=== PATIENT | male | born 1945 | race Caucasian/White ===

== ENCOUNTER 2019-12-12 10:51 | Outpatient (CLI) | payer OTHER, MEDICARE, SELFPAY ==
--- NOTE | 2019-12-12 11:00 | USCV_ITS ---
Jaquan Alba Age: 74 Gender: M : 1945 Exam Date: 12/12/2019 11:19 Ordering Phys: Hermilo Montenegro DO Technologist: Katie Caballero Exam Location: [facility] [place] Indication: Pt has lower leg pain Risk Factors: DM and 68 year 1 pack a day smoker. Active smoker Previous Vascular Surgery: Pt unsure RIGHT LEFT BP: 152.0 / BP: 150.0/ 0 0 Waveform Velocity (cm/s) Velocity (cm/s) Waveform Triphasic 117.0 Iliac Prox 84.6 Triphasic Triphasic 88.1 Iliac Mid 83.7 Triphasic Triphasic 82.8 Iliac Distal 74.3 Triphasic Triphasic 89.4 PLYWOOD LAYUP LINE CORE FEEDER 76.5 Triphasic Triphasic 65.7 SFA Prox 72.6 Biphasic Triphasic SFA Mid Biphasic 70.1 54.7 Triphasic 72.6 SFA Dist 76.5 Biphasic Triphasic 59.0 POP 82.9 Triphasic Triphasic 76.0 OVAL OR CIRCULAR GLASS CUTTER 90.6 Biphasic Triphasic DPA 27.3 Biphasic 1.2 EARLINE 1.1 FINDINGS TOE PRESSURE RT TBI .89 LT TBI .91 Normal resting EARLINE and TBIs bilaterally. CONCLUSIONS No significant arterial obstruction, based on the above findings Dr Steven Handley MD [facility] (Electronically Signed) Final Date: 13 December 2019 08:28 S
== END 2019-12-12 10:52 | disposition home or self-care (01) ==
LOC: RAD 11:01
PROVIDERS: Visit Provider Emergency Medicine Emergency Medical Services
DX: M79.604 Pain in right leg (principal); M79.605 Pain in left leg
CPT/HCPCS: 93925

== ENCOUNTER 2020-01-08 16:06 | Outpatient (CLI) | payer OTHER, MEDICARE, SELFPAY ==
--- NOTE | 2020-01-08 16:13 | MR_ITS ---
WS: [id number] EXAM: MR lumbar spine wo con* [id number] DATE OF EXAMINATION: 01/08/2020, 1648 hours COMPARISON: CT of the abdomen and pelvis from 04/09/2009. HISTORY: 74 years old with low back pain with right leg radiculopathy. TECHNIQUE: Sagittal T1, T2 and T2 inversion recovery: Axial proton density and T2 FINDINGS: Lower thoracic and lumbar vertebrae as well as upper 6 segments are of normal height and marrow signa l characteristics. Cord ends at the L1-2 level. Distal cord is normal in appearance. T10-11, T11-T12 and T12-L1 disc levels show minimal anterior spurring. No findings of protrusion, can al or neural foraminal stenosis. L1-2: Slight anterior spurring otherwise fairly normal discs level. L2-3: Moderate desiccation of the disc. Disc bulges into both neural foramen. Posterior facet arthrop athy changes are demonstrated without protrusion, canal or neural foraminal stenosis L3-4: Posterior facet arthropathy changes. Minimal anterolisthesis of L3 on L4. Disc is desiccated. S light disc bulging in both neural foramen. There are posterior findings a ligament of flavum thickeni ng. Central canal is considered borderline for stenosis. Both neural foramen are narrowed. Borderline for stenosis right greater than left. L4-5: Disc is desiccated. Slight disc bulge into both neural foramina. Posterior facet arthropathy ch anges demonstrated. The neural foramen are considered mildly stenosed bilaterally. No central canal s tenosis. There appears to be a tiny left lateral recess disc herniation at this level. L5-S1: S1 is considered transitional. The disc is desiccated. Slight anterior spurring. Minimal facet arthropathy changes. No protrusion, canal or neural foraminal stenosis. On inversion recovery sequencing no abnormal inflammatory changes are identified. Paraspinal soft tissues are unremarkable. MR/MR lumbar spine wo con* [id number] IMPRESSION: Multilevel osteoarthritis changes as described. Central canal is borderline for stenosis L3-4 level. Bilateral L4-5 neural foraminal stenosis. Borderline L3-4 bilateral neural foraminal stenosis. Minute in size left lateral recess disc herniation L4-5 level.
== END 2020-01-08 16:07 | disposition home or self-care (01) ==
LOC: RADSHAW 16:06
PROVIDERS: PCP Emergency Medicine Emergency Medical Services; Visit Provider Emergency Medicine Emergency Medical Services
DX: M51.26 Other intervertebral disc displacement, lumbar region (principal); M54.16 Radiculopathy, lumbar region; M48.061 Spinal stenosis, lumbar region without neurogenic claudication
CPT/HCPCS: 72148

== ENCOUNTER 2020-04-09 08:16 | Outpatient (CLI) | payer OTHER, SELFPAY ==
--- NOTE | 2020-04-09 08:24 | USCV_ITS ---
Jaquan Alba Age: 74 Gender: M : 1945 Exam Date: 04/09/2020 08:37 Ordering Phys: Hermilo Montenegro DO Technologist: Katie Caballero Exam Location: [facility] [place] Indication: Screening for AAA HISTORY: Diameter (cm) AP x Transverse x Length Velocity (cm/s) Waveform Prox Aorta: 1.99 x 2.10 x 92.90 Mid Aorta: 2.03 x 2.03 x 74.10 Distal Aorta: 1.99 x 1.89 x 79.30 Right Iliac Prox: 1.42 x 1.31 x 126.40 Left Iliac Prox: 1.42 x 1.13 x 70.20 Stent Prox Landing x x Aneurysmal Sac Max x x Lt Lat Sac Dim Rt Lat Sac Dim Stent Dist Landing x x Right Iliac Stent x x Left Iliac Stent x x Right Renal Art Left Renal Art FINDINGS: Normal aortic dimensions. Normal Doppler flow velocities Mild dimensions of the proximal common iliac arteries bilaterally Mild diffuse plaques in the abdominal aorta CONCLUSIONS No evidence of any abdominal aortic aneurysm Mild diffuse plaque in the abdominal aorta No evidence of aneurysm in the proximal common iliac arteries bilaterally Dr Steven Handley MD [facility] (Electronically Signed) Final Date: 10 April 2020 18:26 S
== END 2020-04-09 08:17 | disposition home or self-care (01) ==
LOC: US 08:17
PROVIDERS: PCP Emergency Medicine Emergency Medical Services; Visit Provider Emergency Medicine Emergency Medical Services
DX: M79.604 Pain in right leg (principal); M79.605 Pain in left leg
CPT/HCPCS: 76706

== ENCOUNTER 2020-04-10 08:40 | Outpatient (CLI) | payer OTHER, SELFPAY ==
--- NOTE | 2020-04-10 08:47 | CT_ITS ---
WS: [id number] CT scan of the of the abdominal aorta and its branches,. Additional two-dimensional coronal and sagit peter reconstruction was performed. MIP images were also performed. 04/10/2020 Clinical Data: LOWER EXTREMITY SWELLING, HISTORY OF THROMBOSIS Comparison: CTA abdomen pelvis, 04/09/2009. DLP: 1042.[address] scans at [facility] use at least one of these dose optimization techniques: automat ed exposure control; mA and/or kV adjustment per patient size (includes targeted exams where dose is matched to clinical indication); or iterative reconstruction. Findings: Vascular findings: The abdominal aorta is normal in size with no aneurysm. There is atherosclerotic change with minimal mural thrombosis. The renal arteries, celiac artery, SMA and LISA show no abnormalities. The common il iac arteries are patent and they divide into the internal and external iliac arteries. The external i liac arteries become the common femoral arteries. There is minimal calcification of the common iliac arteries and their distal branches. There are no occlusions, stenoses or aneurysms. Abdominal and pelvic findings: The lower lungs show no nodules, metatarsals or effusions. There are low density areas in the anterio r aspect of the liver which are probably cysts and they have not changed. The spleen, gallbladder, pa ncreas and adrenal glands are unremarkable. The kidneys show equal bilateral contrast excretion with bilateral cysts. No masses, hydronephrosis or renal calculi are seen. The stomach, small bowel and co primitivo show no acute abnormalities. No appendicitis or diverticulitis is seen. There are sigmoid diverti cula. No abscess, adenopathy, ascites, mass, obstruction or free air is seen. The bladder is not caridad rkable. The prostate is minimally enlarged. There is osteoarthritis of the lumbar vertebral bodies. CT/CT angio abdomen pelvis [id number] Impression: 1. Normal abdominal aorta. 2. Minimal atherosclerosis of the common iliac arteries and their distal branch es but there are no occlusions or stenoses. 3. Negative for acute intra-abdominal or pelvic abnormalities.
[2020-04-10 10:00] LABS: Blood Urea Nitrogen 12 mg/dL (8-23)
[2020-04-10] MEDS: iohexol 350 mg/mL 100 mL Btl IV (10:13)
== END 2020-04-10 08:41 | disposition home or self-care (01) ==
LOC: RADWPI 08:44
PROVIDERS: PCP Emergency Medicine Emergency Medical Services; Visit Provider Emergency Medicine Emergency Medical Services
DX: M79.89 Other specified soft tissue disorders (principal); I70.8 Atherosclerosis of other arteries
CPT/HCPCS: 74174; 82565; 84520; Q9967

== ENCOUNTER 2020-06-24 18:44 | Emergency (ER) | payer OTHER, MEDICARE, SELFPAY ==
[2020-06-24 19:38] VITALS: BP 153/79; PULSE 67; RESP 16; TEMP 36.7; O2SAT 96; BMI 39.4
--- NOTE | 2020-06-24 20:05 | XR_ITS ---
WS: [id number] Right knee, AP and lateral views, 06/24/2020 Clinical Data: knee pain s/p fall Comparison: None. Findings: No fractures or dislocations are seen. The patella is intact. There is osteoarthritic narrowing of the medial joint compartment with spurring of the medial and lat eral femoral condyles and the medial tibial plateau. There is posterior patellar spurring. Minimal ca lcification is seen in the reece of the superficial femoral artery. There is linear calcification in the medial subcutaneous tissue of the distal thigh and proximal leg which may be venous. XR/XR knee RT 3V* [id number] Impression: Negative for fracture of the right knee.
--- NOTE | 2020-06-24 20:05 | XR_ITS ---
WS: [id number] Right hip, AP and frog-leg views, AP pelvis, 06/24/2020 Clinical Data: hip pain s/p fall Comparison: None. Findings: No fractures or dislocations are seen. The hip joints are intact. There is calcification adjacent to the greater tuberosity of the right hip which may be from bursitis or tendinitis. The adjacent pelvis is normal. The SI joints and pubic symphysis are normal. . XR/XR hip RT 2-3V wo/w pel* [id number] Impression: Negative for fracture of the pelvis and right hip.
--- NOTE | 2020-06-24 20:05 | W.ED.EXTPRO ---
HPI - Extremity Problem General: Chief complaint: Extremity Injury, Lower Stated complaint: fell/right leg injury Time Seen by Provider: 06/24/20 19:56 Source: patient and family Mode of arrival: ambulatory Limitations: no limitations History of Present Illness: HPI Narrative: 74-year-old male patient presents to the emergency department with complaints of right hip and right knee pain after sustaining fall, Monday, June 22, 2020. He reports continued right hip and right knee pain despite use of walker and pain medication. He reports unable to straighten his body without reproducing hip pain. He reports fell due to wet floor. MD Complaint: extremity pain and joint pain Onset (ago): day(s) (2-3) Pain Consistency: intermittent Location: right and lower extremity Relieving factors: immobilization and rest Exacerbating factors: range of motion, weight bearing and walking Associated symptoms: Reports no associated symptoms; Deny chest pain, fever(s) or rash Review of Systems General: Reports: 10 or more systems reviewed and unremarkable except in HPI and below Const: Reports: fatigue (chronic); Denies: fever(s), chills, body aches or diaphoresis Eyes: Denies: blurry vision or eye redness ENMT: Denies: throat pain, dental pain or disequilibrium Card: Denies: chest pain, palpitations, irregular heart rhythm or swelling of feet/ankles Resp: Denies: dyspnea, productive cough, non-productive cough or wheezing GI: Denies: abdominal pain, nausea, vomiting, dysphagia or heartburn : Denies: dysuria Musc: Reports: joint pain and joint stiffness; Denies: neck pain or back pain Skin/Breast: Denies: rash or pruritus Neuro: Denies: headache(s), weakness in extremities or behavioral changes Psych: Denies: anxiety, depression, sleeping more or change in appetite Oracio/Lymph: Denies: easy bruising PFS ED PFSH: Medical History COPD (chronic obstructive pulmonary disease) Diabetes 1.5, managed as type 1 Essential (primary) hypertension GERD (gastroesophageal reflux disease) Hyperlipemia Physical Exam Const: COMMON NORMALS: no acute distress, patient oriented x3, healthy appearing and alert GENERAL APPEARANCE: cooperative, comfortable and well hydrated HENMT: COMMON NORMALS: normocephalic, Normal external nose present and moist oral mucous membranes HEAD & SCALP: normocephalic NOSE: Normal external nose present Eye: COMMON NORMALS: Equal, round and reactive pupils present and EOMs intact bilaterally GENERAL EYE: appearance normal, both eyes and all related structures PUPIL: Yes Equal, round and reactive pupils present Neck/C-Spine: COMMON NORMALS: full ROM, no lymphadenopathy and supple GENERAL: Yes normal visual inspection and Yes trachea midline CERVICAL SPINE: Yes cervical ROM normal, No pain with cervical ROM, No Cervical spine tenderness, No Paracervical muscle tenderness and No Paracervical spasm Lymph: LYMPHATIC: no lymphadenopathy noted Chest: COMMONS NORMALS: normal inspection of the chest Resp: COMMON NORMALS: normal respiratory effort and clear to auscultation bilaterally AUSCULTATION: clear to auscultation bilaterally Cardio: COMMON NORMALS: regular rhythm, S1 normal heart sound present and S2 normal heart sound present RHYTHM: regular rhythm HEART SOUNDS: S1 normal heart sound present and S2 normal heart sound present GI: COMMON NORMALS: Soft to palpation and non-tender INSPECTION: Yes normal to inspection PALPATION: Yes Soft to palpation : COMMON NORMALS: Yes no CVA tenderness BLADDER/KIDNEY EXAM: Yes no CVA tenderness Back/Pelvis: COMMON NORMALS: no CVA tenderness, thoracic and lumbar spine normal to inspection, no thoracic nor lumbar tenderness and thoraco-lumbar ROM normal THORACIC SPINE/UPPER BACK: No pain with ROM LUMBAR SPINE/LOWER BACK: No pain with ROM Extremity: COMMON NORMALS: normal to inspection, capillary refill normal, no clubbing, cyanosis or edema and no calf tenderness GENERAL: Yes normal exam except as noted RIGHT LOWER EXTREMITY: Yes hip joint (No pain with hip flexed 90 degrees, sitting position) Right hip: Yes palpation (Not able to reproduce tenderness with palpation), Yes ROM (Limited extension/knee flexion due to pain reproduced) and Yes neurovascular exam (Distally intact) and Yes knee joint (anterior knee tenderness along the patellar joint,) Right knee: Yes ROM (Pain with complete extension and flexion at 90 degrees) and Yes neurovascular exam (Distally intact) Neuro: COMMON NORMALS: patient oriented x3 and no focal motor deficits SENSORIUM/ORIENTATION: Yes alert Psych: COMMON NORMALS: mental status grossly normal, Normal thought process present and cooperative ACTIVITY/MOTOR BEHAVIOR: Yes appropriate eye contact THOUGHT PROCESS: Normal thought process present Skin: COMMON NORMALS: no rashes or lesions noted and turgor normal GENERAL SKIN EXAM: no rashes or lesions noted and turgor normal Course Vital Signs: Vital signs: Vital Signs Temperature 98.1 F 06/24/20 19:38 Pulse Rate 67 06/24/20 19:38 Respiratory Rate 16 06/24/20 19:38 Blood Pressure 153/79 06/24/20 19:38 Pulse Oximetry 96 06/24/20 19:38 MDM - Extremity (Nontraumatic) Imaging Data^: Xray Ortho: My impression: No acute fracture of the right hip/pelvis noted, radiology interpretation pending No acute fracture of the right knee, radiology interpretation pending Discharge Plan Discharge Patient Disposition: Home Clinical Impression: Contusion of knee Qualifiers: Encounter type: initial encounter Laterality: right Qualified Code(s): S80.01XA - Contusion of right knee, initial encounter Strain of right knee Qualifiers: Encounter type: initial encounter Qualified Code(s): S86.911A - Strain of unspecified muscle(s) and tendon(s) at lower leg level, right leg, initial encounter Strain of right hip Qualifiers: Encounter type: initial encounter Qualified Code(s): S76.011A - Strain of muscle, fascia and tendon of right hip, initial encounter Fall Qualifiers: Encounter type: initial encounter Qualified Code(s): W19.XXXA - Unspecified fall, initial encounter Condition: Stable Prescriptions: No Action colchicine 0.6 mg capsule 0.6 mg PO DAILY RF: 0 aspirin [Enteric Coated Aspirin] 81 mg tablet,delayed release (DR/EC) 81 mg PO DAILY RF: 0 (DME) lancets [Accu-Chek Softclix Lancets] Misc See Rx Instructions .ROUTE .MEDSUPPLY Qty: 50 RF: 0 Discharge Orders: Discharge ED (Routine); Ordered 06/24/20 Ordered By: Reta Davenport Referrals: Hermilo Montenegro DO [Primary Care Provider] - Discharge Diet: Usual diet Discharge Activity: Limit activity as instructed Patient Instructions: Muscle Strain (ED), Contusion in Adults (ED), Knee Pain (ED), Opioid Safety Activity Restrictions/Additional Instructions: Return to the emergency department if you develop increased pain or redness/swelling to the right lower extremity Follow-up with your primary care in 4 to 5 days if pain is not improved Continue with walker use to assist with ambulation Coding Level of Care Code ED Water Treatment Specialist for Chg Fwd Exam Comprehensive
[2020-06-24 21:42] VITALS: BP 138/84; PULSE 56; RESP 14; O2SAT 95
== END 2020-06-24 21:42 | disposition home or self-care (01) ==
PROVIDERS: Emergency Provider Nurse Practitioner Family; PCP Emergency Medicine Emergency Medical Services
DX: J44.9 Chronic obstructive pulmonary disease, unspecified (principal); E13.9 Other specified diabetes mellitus without complications; I10 Essential (primary) hypertension; E78.5 Hyperlipidemia, unspecified
CPT/HCPCS: 73502; 73562; 99282

== ENCOUNTER → 2020-08-06 12:29 | Outpatient (BNVA) | payer OTHER, SELFPAY | PROVIDERS: PCP Emergency Medicine Emergency Medical Services; Visit Provider Psychiatry & Neurology Neurology | DX: M79.604 Pain in right leg (principal); G60.8 Other hereditary and idiopathic neuropathies | CPT/HCPCS: 95886; 95908 ==

== ENCOUNTER 2020-10-09 07:01 | Outpatient (CLI) | payer OTHER, SELFPAY ==
[2020-10-09 07:47] VITALS: BMI 39.4
--- NOTE | 2020-10-09 07:48 | NMCV_ITS ---
NM adrianna perf SPECT r/s* [id number] Jaquan Alba Age: 75 Gender: M : 1945 Exam Date: 10/09/2020 08:09 Ordering Phys: Sathish Ames M.D ([email or web address]) Technologist: PAYTON Lawton Exam Location: [facility] Indications: SHORTNESS OF BREATH STRESS TEST Please see separate stress test report in [facility] for full findings IMAGE PROTOCOL Rest/Stress 1 Lexiscan Day Radiopharmaceutical Dose (mCi) Administration Site Administered by Rest: Tc-99m 10.9 IV PAYTON Lynne Sestamibi Stress:Tc-99m 33.0 IV PAYTON Lynne Sestamibi Rest: 09-Oct-2020 60 Discovery 630 Stress: 09-Oct-2020 30 Discovery 630 0.4mg Lexiscan. Images obtained in supine and prone position. SPECT RESULTS Technical Quality: Excellent Raw Data Analysis: Normal Image Corrections: No attenuation or motion correction applied Summed Stress Score: 10 Summed Rest Score: 12 Summed Difference Score: 2 PERFUSION FINDINGS There is a large sized, fixed perfusion defect in the apical lateral, apical inferior and mid to basal inferior reece. This is consistent with prior infarct. No ischemia is seen FUNCTIONAL RESULTS (calculated via Gated SPECT) Stress Image LV EF (%): 62 Stress EDV (mL):132 TID: 0.92 Stress ESV (mL):50 FUNCTIONAL FINDINGS: There is normal left ventricular systolic function. IMPRESSIONS 1. Abnormal perfusion imaging with infarct noted in the apical lateral, apical inferior and mid to basal inferior reece. No evidence of ischemia 2. LV systolic function is normal Sathish Ames MD (Electronically Signed) Final Date: 09 October 2020 16:43 S
--- NOTE | 2020-10-09 07:48 | ECG_ITS ---
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 Interpretive Statements NAME OF STUDY: LEXISCAN SESTAMIBI STRESS TEST INDICATION: [Chest Pain, ] Procedure: At the baseline, the blood pressure was 124/63mmHg with a heart rate of 61 bpm. The electrocardiogram showed normal sinus rhythm, normal axis with normal ST and T's. The Lexiscan was infused over a period of 20 seconds. A total of 0.4 mg of Lexiscan was infused. The stress phase was continued for a total of 5 minutes. Heart rate was at the end of stress phase was 52 bpm and a blood pressure of 127/60 mmHg. The EKG at the peak infusion revealed since normal sinus rhythm with no significant ST-T wave changes. Occasional PVCs were seen Sestamibi was injected 20 seconds after the Lexiscan infusion. Blood pressure at the end of recovery phase was 105/58 mmHg with a heart rate of 60 bpm. Conclusion: 1. Normal EKG response to Lexiscan infusion 2. No Lexiscan induced chest pain or cardiac arrhythmia. 3. Normal blood pressure and heart rate response. 4. Sestamibi/sestamibi perfusion scan pending; see separate report. Electronically Signed On 11-18-2020 15:10:12 CDT by Sathish Ames M.D. [id number]
[2020-10-09 08:57] VITALS: BP 129/55; PULSE 53
[2020-10-09] MEDS: regadenoson 0.4 Mg/5 ml Syringe IVP (08:57)
--- NOTE | 2020-10-09 10:15 | USCV_ITS ---
Jaquan Alba Age: 75 Gender: M : 1945 Exam Date: 10/09/2020 07:32 Ordering Phys: Sathish Ames M.D ([email or web address]) Technologist: Katie Caballero [place] [facility] [place]: MEDICAL CLEARANCE BP: / HR: 63 Rhythm: Sinus Technical Quality: TDS MEASUREMENTS (Male / Female) Normal Values 2D ECHO LV Diastolic Diameter PLAX 4.0 cm 4.2 - 5.9 / 3.9 - 5.3 cm LV Systolic Diameter PLAX 2.2 cm LV Chamber Size 2.6 cm IVS Diastolic Thickness 2.1 cm 0.6 - 1.0 / 0.6 - 0.9 cm IVS Systolic Thickness 2.2 cm LVPW Diastolic Thickness 1.9 cm 0.6 - 1.0 / 0.6 - 0.9 cm LVPW Systolic Thickness 1.7 cm RV Chamber Size 3.6 cm LVOT Diameter 2.1 cm LV Ejection Fraction 2D Teich 81.1 % LV Ejection Fraction MOD 2C 48.5 % LV Ejection Fraction 2C AL 50.5 % LA Diameter 3.5 cm LA Width 2.9 cm LA Height 4.3 cm RA Width 3.8 cm RA Height 4.4 cm Aorta at Sinotubular Diameter 3.3 cm M-MODE LV Diastolic Diameter MM 4.0 cm 4.2 - 5.9 / 3.9 - 5.3 cm LV Systolic Diameter MM 2.8 cm LV Ejection Fraction MM Teich 55.0 % IVS Diastolic Thickness MM 1.4 cm 0.6 - 1.0 / 0.6 - 0.9 cm IVS Systolic Thickness MM 1.9 cm LVPW Diastolic Thickness MM 1.9 cm 0.6 - 1.0 / 0.6 - 0.9 cm LVPW Systolic Thickness MM 1.8 cm Aortic Annulus Diameter 3.4 cm LA Ao Ratio MM 1.1 MV E Point Septal Separation 0.9 cm DOPPLER AV Peak Velocity 105.0 cm/s LVOT Peak Velocity 59.0 cm/s AV Area Cont Eq vti 2.4 cm squared AV Area Cont Eq pk 1.9 cm squared MV Area PHT 2.4 cm squared Mitral E to A Ratio 0.7 MV E' Velocity 39.0 cm/s Mitral E to MV E' Ratio 7.1 Mitral E to LV E' Lateral Ratio 5.6 Mitral E to LV E' Septal Ratio 9.6 TR Peak Velocity 100.3 cm/s TR Peak Gradient 4.0 mmHg TR Mean Velocity 74.9 cm/s TR Mean Gradient 2.6 mmHg TR Velocity Time Integral 26.9 cm TV Peak E Velocity 44.0 cm/s Right Atrial Pressure 3.0 mmHg Pulmonary Artery Systolic Pressu 7.0 mmHg PV Peak Velocity 38.0 cm/s RV Acceleration Time 0.1 s RV Ejection Time 0.4 s RV AcT/ET 0.3 FINDINGS Left Ventricle Normal left ventricular size. LV systolic function is normal with EF of 50-55%. Regional wall motion abnormalities can not be assessed because of poor visualization. Right Ventricle The right ventricle is normal in size and function. Right Atrium The right atrium is normal in size. Left Atrium The left atrium is normal in size. Mitral Valve Grossly normal without significant stenosis or prolapse. There is no mitral regurgitation. Aortic Valve Grossly normal without significant sclerosis or stenosis. There is no aortic regurgitation. Tricuspid Valve Structurally normal tricuspid valve without significant stenosis or regurgitation. Insufficient TR jet to calculate RVSP Pulmonic Valve Not well visualized Pericardium Normal pericardium without effusion. Aorta Normal ascending aorta dimension. CONCLUSIONS Limited quality echocardiogram secondary to poor ultrasonic windows LV systolic function is normal with EF of 50-55% No gross valvular abnormalities No comparison studies are available Sathish Ames MD (Electronically Signed) Final Date: 10 October 2020 18:17 S
== END 2020-10-09 07:02 | disposition home or self-care (01) ==
LOC: CDL 07:04
PROVIDERS: PCP Emergency Medicine Emergency Medical Services; Visit Provider Internal Medicine
DX: I25.10 Atherosclerotic heart disease of native coronary artery without angina pectoris (principal); R07.9 Chest pain, unspecified; R06.02 Shortness of breath
CPT/HCPCS: 78452; 93017; 93306; A9500; J2785

== ENCOUNTER → 2020-10-17 08:58 | Outpatient (BNVA) | payer OTHER, SELFPAY | PROVIDERS: PCP Emergency Medicine Emergency Medical Services; Visit Provider Student in an Organized Health Care Education/Training Program | DX: Z01.812 Encounter for preprocedural laboratory examination (principal); Z20.822 Contact with and (suspected) exposure to COVID-19 | CPT/HCPCS: 87635 ==

== ENCOUNTER 2020-11-05 14:26 | Outpatient (CLI) | payer OTHER, SELFPAY ==
--- NOTE | 2020-11-05 19:31 | ONC CON_ITS ---
Dr. Tilley New Patient Note Patient: Jaquan Alba Unit #: [id number]: 1945 Dicatated By: Yasmany Tilley M.D.Date of Visit: Nov 05, 2020 Onc MED New Patient/Consult Referring Physician: Dr. WICHO ESPARZA M.D. Chief Complaint: Rectal cancer. History of Present Illness: This is a 75-year-old man with well differentiated adenocarcinoma of the rectum, by clinical evaluation stage I (T1, N0, M0). He has multiple medical illnesses including hypertension, hyperlipidemia, diabetes (reportedly type I), coronary artery disease, COPD, and peripheral neuropathy. He has had chronic debility and chronic pain in his right leg following a crush injury to his right leg sometime around 1997. [place] through the [place]. On a screening colonoscopy in March 2012 he was found to have a small adenomatous polyp in the ascending colon. It was removed endoscopically. A follow-up surveillance colonoscopy on 09/04/2020 showed a 4 mm sessile polyp at the ileocecal valve which was removed endoscopically. Also noted was a nonobstructing rectal mass measuring 3.0 x 3.0 cm extending from 5 to 8 cm from the anal verge. Biopsies of the rectal mass showed tubular adenoma with focal high-grade dysplasia. The ICV polyp showed tubular adenoma. CT of the abdomen/pelvis on 09/10/2020 showed no acute process. There was no retroperitoneal or pelvic adenopathy noted. His baseline CEA level was 3.5 ng/mL. He was referred to Dr. Shiraz Benavides in [place]. On 10/22/2020 he underwent transanal excision of the rectal mass and rigid proctoscopy. The mass was able to be completely excised. Pathology showed well differentiated adenocarcinoma with invasion of the submucosa (pT1). There was only sparse uninvolved muscularis propria in the submitted sample. The peripheral margins were at least 3 mm from the tumor. The deep margin was measured at 1 mm. He is seen now in regard to the rectal cancer. He has very limited activity which appears to be due predominantly to chronic debility associated with a previous crush injury to his right leg and to peripheral neuropathy. His ECOG score is 2. He has good appetite. He has no fever or night sweats. He has shortness of breath with activity and he has cough productive of clear sputum. He does not complain of chest pain. He has no GI complaints other than occasional heartburn. He had not been having any significant bowel symptoms, and he has not been aware of any blood in the stool. Bladder function remains adequate, though he does complain that his bladder does not empty completely. He has chronic pain in the right leg. He also complains that with weightbearing he gets a bulge in his right leg which holds fever in it . He has no other joint or bone pain. He does not complain of headache. He does complain that he does not have a sense of balance and he complains that his feet are . Past Medical History: Mr. Alba's medical history consists of chronic obstructive pulmonary disease, coronary artery disease, gastroesophageal reflux disease, gout, hyperlipidemia, hypertension, obstructive sleep apnea, peripheral neuropathy, and type 1 diabetes. Past Surgical History: His surgical/procedural history consists of appendectomy in 2008, coronary angioplasty/stent placement in 1997, and a previous rectal fissure repair. He suffered a crush injury to the right leg/foot in 1997. Medications: Aleve Tablet Oral b.i.d. PRN, Ana Cristina-Ridgeway Tablet, effervescent Oral PRN, Allopurinol (300 mg) Tablet Oral daily, amLODIPine Besylate (5 mg) Tablet Oral daily, Aspirin Low Dose Adult (81 mg) Tablet, chewable Oral daily, Cetirizine HCl (10 mg) Tablet Oral daily PRN, Cholecalciferol (50 mcg ) Tablet Oral daily, Colchicine (0.6 mg) Capsule Oral daily PRN, Gemfibrozil 2 (600 mg) Tablet Oral daily, hydroCHLOROthiazide (25 mg) Tablet Oral daily, Lisinopril (10 mg) Tablet Oral daily, Lyrica (150 mg) Capsule Oral t.i.d., ProAir HFA Aerosol, solution Inhalation PRN, Triamcinolone Acetonide Cream Topical PRN, Xlear Sinus Care [place] Solution Nasal b.i.d. PRN Allergies: Zocor Social History: Mr. Alba is . He has a history of smoking 1 pack of cigarettes daily for 60 years. He does not drink alcohol. He has had alcohol use in the past which at one point was moderate, but never heavy. Family History: Father with some type of lung disease. Mother of liver cancer . 1 brother also is , cause unknown to the patient. He has 2 sisters, one of whom has dementia. A son has been treated for non-Hodgkin's lymphoma. Review Of Symptoms: Constitutional - He has very limited activity, but he is up and around in a scooter. He has good appetite. He has no fever or night sweats. ECOG score is 2, Eyes - He has had some decline in vision, ENMT - He has hearing loss. No tinnitus. He has some allergy related sinus symptoms. No mouth sores. No sore throat or difficulty swallowing, Hematologic/Lymphatic - He has easy bruising, Respiratory - He has shortness of breath with activity. He has cough productive of clear sputum. No pleuritic pain or hemoptysis, Cardiovascular - No angina pain. No palpitations, Gastrointestinal - No nausea or vomiting. He occasionally has heartburn. No diarrhea or constipation. No blood in the stool or black stools, Genitourinary (M) - He complains that his bladder tends to not empty completely. No dysuria or hematuria. No urinary frequency. No urgency or incontinence, Musculoskeletal - He has chronic pain in his right leg and with weightbearing he tends to have a bulge in his right leg that has fever ended , Integumentary - No skin rash or other skin changes, Neurologic - No headache. He complains that he does not have a sense of balance, and he complains that his feet are , Psychiatric - No anxiety or depression. No insomnia. Vital Signs: Performed on Nov 05, 2020 16:41: 7, 0, 39.95 (HIGH), 2.40 sq.m, 70 in, 96 %, 69 /min, 18 /min, 148/85 mm(hg) (HIGH), 97.8 F (LOW), and 278.4 lbs (HIGH). Physical Examination: Constitutional - He appears generally weak and he has poor mobility, Eyes - Sclerae nonicteric. Conjunctivae clear, ENMT - No lesions noted in the oral cavity, Neck - No mass or thyromegaly, Hematologic/Lymphatic - No cervical, clavicular, or axillary adenopathy, Respiratory - Lungs are clear with diminished air movement bilaterally, Cardiovascular - Heart rhythm is regular. There is no murmur, gallop, or rub noted, Abdomen - Mildly distended. Liver and spleen are not enlarged. There is no abdominal mass or ascites noted and there is no inguinal adenopathy, Back/Spine - No spine or CVA tenderness noted, Extremities - There is slight edema. There is firm swelling of the right calf with the right calf circumference measuring 48 cm compared to 43 cm on the left. Pedal pulses are palpable bilaterally and both feet are warm to touch, Integumentary - No rashes. No suspicious skin lesions noted. Problem List: 1. Well differentiated adenocarcinoma of the rectum, by clinical evaluation stage I (pT1, N0, M0). 2. Hypertension. 3. Hyperlipidemia. 4. Diabetes, reportedly type I. 5. Coronary artery disease with previous angioplasty/stent placement. 6. COPD. 7. Peripheral neuropathy. 8. History of gout. 9. History of crush injury to the right leg. Problems Addressed with this Encounter and Plan: Patient with well differentiated adenocarcinoma of the rectum, by clinical evaluation stage I (pT1, N0, M0). The tumor was completely removed by transanal excision on 10/22/2020. Pathology showed invasion of the submucosa. The specimen included only sparse uninvolved muscularis propria. Peripheral margins were at least 3 mm. The deep margin was measured at 1 mm. With the tumor completely excised, there is no further treatment indicated, but he will require close surveillance, particularly with the close margins. We discussed the fact that the surveillance program as outlined by Dr. Benavides is very appropriate, though in his case it may be somewhat cumbersome given his underlying medical illnesses and poor mobility. The family also indicated that [facility] recommended that after his initial 3-month follow-up he could just be monitored by CEA level. I have no idea if that statement is accurate, but it would certainly not be sufficient for surveillance of rectal cancer treated by transanal excision. In summary, he does not require any further treatment at this time, and he does not need to follow-up here as long as he continues his surveillance with Dr. Benavides. Signed By: Yasmany Tilley M.D. <<Signature on File>>
== END 2020-11-05 14:27 | disposition home or self-care (01) ==
PROVIDERS: PCP Emergency Medicine Emergency Medical Services; Visit Provider Internal Medicine Medical Oncology
DX: C20 Malignant neoplasm of rectum (principal); I10 Essential (primary) hypertension; E78.5 Hyperlipidemia, unspecified; E10.59 Type 1 diabetes mellitus with other circulatory complications; I25.10 Atherosclerotic heart disease of native coronary artery without angina pectoris; Z95.5 Presence of coronary angioplasty implant and graft; J44.9 Chronic obstructive pulmonary disease, unspecified; E11.42 Type 2 diabetes mellitus with diabetic polyneuropathy; M10.9 Gout, unspecified; Z87.828 Personal history of other (healed) physical injury and trauma; Z79.899 Other long term (current) drug therapy
CPT/HCPCS: 99205

== ENCOUNTER → 2021-01-19 13:45 | Outpatient (BNVA) | payer OTHER, SELFPAY | PROVIDERS: PCP Emergency Medicine Emergency Medical Services; Referring Provider Emergency Medicine Emergency Medical Services; Visit Provider Specialist | DX: M25.561 Pain in right knee (principal); M17.11 Unilateral primary osteoarthritis, right knee | CPT/HCPCS: 73560; 73565 ==

== ENCOUNTER → 2021-02-16 14:13 | Outpatient (BNVA) | payer OTHER, SELFPAY | PROVIDERS: PCP Emergency Medicine Emergency Medical Services; Referring Provider Specialist; Visit Provider Podiatrist Foot & Ankle Surgery | DX: M79.671 Pain in right foot (principal); M20.41 Other hammer toe(s) (acquired), right foot | CPT/HCPCS: 73630 ==

== ENCOUNTER → 2021-03-24 10:06 | Day surgery (SDC) | payer OTHER, MEDICARE, SELFPAY | PROVIDERS: PCP Emergency Medicine Emergency Medical Services; Visit Provider Specialist | DX: Z01.818 Encounter for other preprocedural examination (principal); M17.11 Unilateral primary osteoarthritis, right knee | CPT/HCPCS: 93005 ==

== ENCOUNTER → 2021-03-26 13:47 | Outpatient (BNVA) | payer OTHER, SELFPAY | PROVIDERS: PCP Emergency Medicine Emergency Medical Services; Visit Provider Specialist | DX: Z01.812 Encounter for preprocedural laboratory examination (principal); Z20.822 Contact with and (suspected) exposure to COVID-19 | CPT/HCPCS: 87635 ==

== ENCOUNTER 2021-03-31 15:11 | Observation (INO) | payer OTHER, MEDICARE, SELFPAY ==
--- NOTE | 2021-03-24 10:06 | ECG_ITS ---
[facility] Test Date: 2021-03-24 Pat Name: Jaquan Alba Department: Room: Gender: Male Tube Splicer: : 1945 Requested By: Harshad Cook Order Number: [id number] Vladimir MD: Conchita Gonsales M.D. Measurements Intervals [place] Rate: 64 P: 69 DE: 179 QRS: -22 QRSD: 101 T: 45 QT: 411 QTc: 427 Interpretive Statements SINUS RHYTHM BORDERLINE LEFT AXIS DEVIATION [QRS AXIS < -20] No previous ECG available for comparison Electronically Signed On 03-24-2021 18:00:33 AERONAUTICAL DRAFTER by Conchita Gonsales M.D. [id number]
[2021-03-24 10:18] VITALS: BMI 40.1
[2021-03-24 10:50] LABS: Basophils # 0.1 10^3/uL (0.0-0.1); Basophils % 1.1 %; Eosinophils # 0.3 10^3/uL (0.0-0.8); Eosinophils % 4.4 %; Hematocrit 45.9 % (42.0-52.0); Hemoglobin 15.8 g/dL (11.7-16.6); Lymphocytes # 2.1 10^3/uL (0.8-4.8); Lymphocytes % 29.1 %; Mean Corpuscular HGB Conc 34.4 g/dL (30.0-36.0); Mean Corpuscular Hemoglobin 31.3 pg (28.0-34.0); Mean Corpuscular Volume 90.9 fl (80-94); Mean Platelet Volume 10.7 fL (7.4-10.4); Monocytes # 0.5 10^3/uL (0.2-0.9); Monocytes % 6.5 %; Neutrophils # 4.16 10^3/uL (1.8-7.7); Neutrophils % 58.5 %; Nucleated Red Blood Cells % 0 %; Platelet Count 161 10^3/cmm (130-400); Red Blood Count 5.05 10^6/uL (4.1-5.3); Red Cell Distribution Width 13.1 % (12.1-15.1); White Blood Count 7.1 10^3/uL (4.0-10.0)
--- NOTE | 2021-03-24 11:04 | ANES.PREANE2 ---
Pre-Anesthetic Assessment Pre-Anesthetic Assessment: Height/Weight: Height 1.78 m Weight 127.006 kg Proposed Procedure: Operation Date: 03/31/21 10:55 Proposed Procedures p Total Knee Arthroplasty 16915 M17.10(Right) - Karissa Llanos MD Was Beta Markell taken within 24 hours: N/A Was Clonidine taken within 24 hours: N/A Social: Social History: No alcohol and No tobacco Exam: Pre-Anes Outpt Exam: alert, oriented x 3, clear to auscultation bilaterally and regular rate & rhythm Airway: Submandibular: WNL Cervical ROM: Other (limited) MP: 2 Dentition: Partials Pulmonary: Pulmonary: OREILLY and Sleep apnea CV/HEM: CV/HEM: HTN : : None reported Hepatic: Hepatic: None reported GI: GI: GERD Metabolic: Metabolic: DM, Hyperlipidemia and Morbid obesity Musc/skel: Musc/skel: OA/DJD Neuropsych: Neuropsych: None reported Anesthetic Plan: ASA status: 3 Anesthesia: Regional (specify below) Other: Spinal with adductor canal block (right) PFSH Anesthesia PFSH: Medical History COPD (chronic obstructive pulmonary disease) Diabetes 1.5, managed as type 1 Essential (primary) hypertension GERD (gastroesophageal reflux disease) Hyperlipemia Surgical History History of coronary artery stent placement Family History Mother Cancer Other Diabetes Denies family history of CAD (coronary artery disease) Stroke Social History Alcohol intake: never Lives independently: Yes Household members: spouse Marital status: Data Anesthesia CBC & Chem 7: 03/24/21 10:38 03/24/21 10:38 Other Labs: Laboratory Results - last 48 hr 03/24/21 10:38 WBC 7.1 RBC 5.05 Hgb 15.8 Hct 45.9 MCV 90.9 MCH 31.3 MCHC 34.4 RDW 13.1 Plt Count 161 MPV 10.7 H Neut % (Auto) 58.5 Lymph % (Auto) 29.1 Randolph % (Auto) 6.5 Eos % (Auto) 4.4 Baso % (Auto) 1.1 Neut # (Auto) 4.16 Lymph # (Auto) 2.1 Randolph # (Auto) 0.5 Eos # (Auto) 0.3 Baso # (Auto) 0.1 Nucleated RBC % (auto) 0 Nucleated RBCs # 0.0 Cardiac Studies: No Data to Display
[2021-03-24 11:13] LABS: Alanine Aminotransferase 15 U/L (0-41); Albumin Level 3.8 g/dL (3.5-5.2); Alkaline Phosphatase 62 IU/L (40-130); Anion Gap 18.1 (5-19); Aspartate Amino Transferase 14 U/L (0-40); Blood Urea Nitrogen 11 mg/dL (8-23); Calcium 8.5 mg/dL (8.5-10.5); Carbon Dioxide 23 mmol/L (22-29); Chloride 101 mmol/L (98-107); Globulin 2.5 g/dL (1.3-4.6); Glucose 93 mg/dL (65-115); Osmolality Calculated 285 mOsm/kg (285-295); Potassium 4.1 mmol/L (3.5-5.1); Sodium 138 mmol/L (136-145); Total Bilirubin 0.4 mg/dL (0.15-1.2); Total Protein 6.3 g/dL (6.6-8.7)
[2021-03-24 11:16] LABS: Add Urine Microscopic? NO; Charge for UA Resulting for Rev
[2021-03-24 12:04] LABS: Blood Urine Neg (Negative); Glucose Urine UA Norm (Normal); Ketones Urine Negative (Negative); Nitrate Urine Negative (Negative); Protein Urine Neg (Negative); Specific Gravity, Urine 1.005 (1.005-1.030); Urine Appearance Clear (CLEAR); Urine Color Yellow (Yellow); pH Urine 7 (5-7)
[2021-03-24 12:05] LABS: Bilirubin Urine Neg (Negative); Leukocyte Esterase Urine Negative (Negative); Urobilinogen Urine Norm (Negative)
[2021-03-31] VITALS (16 sets, daily range): BP systolic 98–142; BP diastolic 55–92; PULSE 57–69; RESP 12–20; TEMP 36.4–36.7; O2SAT 90–98; BMI 40.1
[2021-03-31] MEDS: sodium chloride 0.9% 1,000 ML 30 ML IV (09:34)
[2021-03-31] MEDS: acetaminophen 1,000 MG/100 ML PIGGYBACK 400 MG IV (09:35)
[2021-03-31 09:36] LABS: Glucose Point of Care 116 mg/dL (70-110)
[2021-03-31] MEDS: CELEcoxib 200 mg Capsule 400 MG PO (10:02)
--- NOTE | 2021-03-31 10:08 | ANES.PAUD2 ---
Pre-Anesthetic Update Pre-Anesthetic Assessment: Date of Surgery/Procedure: 03/31/21 Proposed Procedure: Operation Date: 03/31/21 10:55 Proposed Procedures p Total Knee Arthroplasty 68552 M17.10(Right) - Karissa Llanos MD Any changes to Pre-Anesthetic Assessment?: No Last Intake: Intake Last Liquid Date 03/30/21 Last Liquid Time 22:00 Last Solid Date 03/30/21 Last Solid Time 18:00 Labs Last 48hrs: Laboratory Results - last 48 hr 03/31/21 09:19 POC Glucose 116 H Vitals: Temperature 97.6 F 03/31/21 09:14 Temperature Source Temporal Artery S can 03/31/21 09:14 Pulse Rate 65 03/31/21 09:39 Pulse Rhythm 03/31/21 09:24 Pulse Strength 2+ Slightly Dimin ished 03/31/21 09:24 Respiratory Rate 16 03/31/21 09:39 Blood Pressure 107/64 03/31/21 09:39 Blood Pressure Holli n 78 03/31/21 09:39 Pulse Oximetry 95 03/31/21 09:39 Oxygen Delivery Me thod 03/31/21 09:39 Exam: Pre-Anes Outpt Exam: alert, oriented x 3, clear to auscultation bilaterally and regular rate & rhythm Other Pertinent Information: Other Pertinent Information: I discussed with patient risk and benefits of adductor canal block and spinal with possible conversion to general. Patient declined more detailed risk of serious but less common risk associated with anesthetic plan. Patient agrees to proceed. All questions answered. Cardiac Studies: No Data to Display
--- NOTE | 2021-03-31 10:10 | ANES.PROC ---
Anesthesia Procedures Procedure/Date: 03/31/21 Nerve Block ^: Nerve Block 1: Main Anesthesia: spinal anesthesia block Time Out Performed: Yes Consent: from patient Nerve block location: adductor canal Anesthesia monitors applied: pulse oximetry, EKG and BP cuff Nerve block position: supine Anesthetic Used: bupivacaine 0.5% Amount of anesthesia used (mL): 20 Ultrasound used to: recognize landmarks and visualize and ID femerol nerve Nerve Stimulator Used?: No Interscalene/Femoral BLK: 4 stimuplex 21 g needle used for position and inplane approach, visualize local anesthetic spread and no vascular puncture identified Injection: neg aspiration of heme Patient Tolerated Procedure: well Complications: none Additional Comments: Full monitors placed. After time out patient prepped in usual fashion. Using real time US guidance needle was advanced toward intended structures. After negative aspiration total 20 cc 0.5% bupivacaine was injected incrementally with negative aspiration in between injections of 1 to 5 cc. Using real time US visualization the spread of LA was observed. Good block tolerate dwell .
--- NOTE | 2021-03-31 11:05 | P.HPUD_ITS ---
Surgery/Procedure H&P Update DATE OF PROCEDURE: March 31, 2021 DATE H&P PERFORMED: 03/24/21 H&P UPDATE INFORMATION: I have reviewed H&P completed within last 30 days, I have examined patient prior to procedure, No changes to prior documentation and H&P is in [facility] EMR on date indicated PREOP DIAGNOSIS: Primary Osteoarthritis Right Knee PLANNED PROCEDURE: Operation Date: 03/31/21 10:55 Proposed Procedures p Total Knee Arthroplasty 50814 M17.10(Right) - Karissa Llanos MD Related Problem List Diagnoses (1) Primary osteoarthritis of right knee:
[2021-03-31] MEDS: vancomycin 1,000 MG in sodium chloride 0.9% 250 ML 250 MG IV (12:02)
[2021-03-31] MEDS: vancomycin 1,000 MG SDV 1000 MG XX (12:40)
[2021-03-31] MEDS: ceFAZolin 1,000 mg SDV 2000 MG IRRIGATION (12:40)
--- NOTE | 2021-03-31 14:52 | XR_ITS ---
WS: [id number] Exam: XR knee RT 1-2V 13945 Date/Time of Exam: 03/31/2021 2:56 PM Reason For Exam: Status post right total knee arthroplasty Comparison 01/19/2021. A total knee prosthesis has been placed and appears to be in satisfactory position. Postoperative alcon nges in the adjacent soft tissues. Anterior surgical skin clips. XR/XR knee RT 1-2V 47500 IMPRESSION: 1. Total right knee replacement in satisfactory position.
--- NOTE | 2021-03-31 15:01 | P.PCN_ITS ---
PACU note PACU note: VSS, Good respiratory effort, report to COMMUNITY MANAGER Post-Anesthesia Exam: awake
--- NOTE | 2021-03-31 15:01 | PM.PACU ---
PACU note PACU note: VSS, Good respiratory effort, report to TRAINING AND DEVELOPMENT HEAD Post-Anesthesia Exam: awake
--- NOTE | 2021-03-31 15:04 | P.OP_ITS ---
Operative Report Date of procedure: March 31, 2021 Pre-op Diagnosis: Primary Osteoarthritis Right Knee Post-op diagnosis: same Post-op Findings: Severe primary osteoarthritis right knee Procedure Done: Right total knee arthroplasty Implants: The [place] total knee system with a size 5 triathlon beaded posterior stabilized femur right, a triathlon titanium tibial component size 6 beaded, a triathlon X3 posterior stabilized tibial bearing insert size 6 X 13 mm and a beaded triathlon titanium asymmetric patella size 35 x 10 mm Pathology: none sent Surgeon: Karissa Llanos Spa Associate: [facility] operating room technicians Anesthesia: MAC (With spinal, ASA 3) Estimated blood loss (mL): 25 Tourniquet time (min): 105 Tourniquet time: At 250 mmHg IV fluids (mL): 800 Urine output (mL): 200 Complications: None Findings: Severe degenerative osteoarthritis primarily involving the medial compartment. No flexion contracture noted. Condition: stable Disposition: PACU (Then to floor for postoperative rehabilitation and pain management) Brief History: This 75-year-old gentleman presented with complaints of severe right knee pain which caused him significant limitations in his activities of daily living. The patient wished to proceed with operative intervention after nonoperative measures were not successful in addressing his decreased functionality and level of pain. Discussion was undertaken, consents were signed, and questions were answered. Following his surgical procedure, the patient will be placed on the floor under observation status for postoperative rehabilitation. Procedure: The patient was brought to the operating theater, and after undergoing adequate spinal anesthesia with regional block, ASA 3, the right lower extremity was prepped with Dura-Prep and draped in usual fashion following placement of a tourniquet high on the leg. The leg was then draped free. Following prepping and draping, the leg was exsanguinated, and the tourniquet was elevated to 250 mm Hg for a total tourniquet time of 105 minutes. Prior to elevation of the tourniquet, but following exposure of the site of surgery, a surgical pause was performed. At the time of the surgical pause, we confirmed the site and side of surgery. Additionally, we confirmed the appropriate and timely administration of preoperative antibiotics, vancomycin 1 g and Transexemic acid 1 g. The availability of equipment was confirmed, and the patient's identity was verbalized as well. Following the surgical pause, an incision was made centering over the patella continuing proximally and distally as necessary to allow access to the knee mehrdad nt. Dissection continued through skin and soft tissues using a scalpel. Hemostasis was obtained using electrocautery. The skin incision was followed by a median parapatellar arthrotomy. The leg was extended and the patella was everted. Following this, the leg was returned to flexed position. The distal femur was exposed and a drill hole was made in this for placement of the distal femoral jig. The distal femoral jig was set at 5? of valgus. The distal femoral cutting block was then placed in appropriate position, and an sonia wing was used to confirm an appropriate amount of distal femur would be resected. The distal femoral resection was accomplished with 8 mm of bone being resected distally. After the distal femoral resection had been accomplished, the femur was measured and it measured a size 5. Medial lateral dimension also measured a size 5. A size 5 femoral cutting block was placed in position, and we were then able to accomplish the anterior, posterior and chamfer cuts. This jig was then removed, and the notch guide was placed in position. With the notch guide in appropriate position, the notch was excised including resection of the anterior and posterior cruciate ligaments. This notch was to allow for the posterior stabilized femoral component. At this point, the femur was prepared and attention was directed to the proximal tibia. The posterior knee retractor was placed along with medial and lateral retractors. Further resection of the menisci was accomplished as we had better visualization. A complete meniscectomy was performed both medially and laterally with care being taken to protect the popliteus. Retractors were then placed so that the proximal tibia was well visualized. A drill hole was then made in the tibia for placement of the intramedullary guide. This guide was placed so that approximately 2 mm of bone would be resected from the medial tibial plateau, and this resulted in 4+ mm resected from the lateral tibial plateau. The intramedullary guide was utilized supplemented with an extramedullary guide to assure appropriate alignment for the proximal tibial resection. The proximal tibial jig was then evaluated, pinned in position, and the proximal tibial resection was accomplished without difficulty. The jig was removed, and the proximal tibia was measured. It measured a size 6. We then attempted a trial reduction with a size 6 by 9 mm insert. To better balance the knee, a slight medial release was accomplished, and trial reduction was accomplished with an 11 mm followed by a 13 mm insert. With this, the femoral component was placed in position for the trial reduction, and the knee was placed through range of motion. There was excellent stability with excellent varus-valgus alignment with appropriate patellar tracking. Extension was noted to be full as well. This was felt to be the appropriate size insert. There was full extension and flexion without lift off and the rotation of the tibia was marked. Alignment was checked from the hip to the ankle, and this was noted to be appropriate as well. Attention was then directed to the patella. The patella was measured with a caliper. We resected sufficient patella to leave approximately 14 mm of patella remaining. Measurements of the patella then indicated that a size asymmetric 35 mm x 10 mm was the appropriate patellar size. We then placed the jig to drill for the 3 pegs of the press-fit patella, and these drill holes were made without incident. A trial patella was then placed, and the knee was placed through range of motion. The patella was noted to track nicely without evidence of subluxation. The femur was prepared for a press-fit femur by drilling 2 holes for the femoral pegs. All trial components were subsequently removed. The tibial tray was then pinned into position, and we broached the tibia for the stem of the tibial component. Subsequently, 4 drill holes were made for placement of the press-fit tibia. This was accomplished without difficulty. Care was taken to assure appropriate rotation of the tibia as well as appropriate position on the proximal tibia. The tibial tray was completely seated on the proximal tibia. Following broaching, the tibial guide was removed, and all surfaces were copiously irrigated. The surfaces were then dried and a bone plug was placed into the distal femur. Exparel was also injected at this point. The Tritanium tibia was impacted into position. The beaded femur was then impacted into position in a cementless fashion. The tibial insert was placed. The patella was pressed into position with a patellar clamp. The knee was irrigated with 20 mL of Betadine and 500 mL of normal saline, and this was allowed to remain in the knee for 3-4 minutes. The knee was then copiously irrigated and suctioned dry. Attention was then directed to closure. Closure was accomplished with 0 Vicryl in the fascial tissues. Following this, a 2-0 Monocryl was used in the subcutaneous tissues, and the skin was closed with skin christofer. A sterile dressing was then placed consisting of dermabond Prineo, OpSite, sterile soft roll, and an Samuel wrap. The patient was returned the Recovery Room in a satisfactory condition. X-rays were obtained there. The patient will be discharged to the floor for postoperative rehabilitation and pain management. Associated Problem List Diagnoses (1) Primary osteoarthritis of right knee:
[2021-03-31] MEDS: sodium chloride 0.9% 1,000 ML 100 ML IV (15:09)
--- NOTE | 2021-03-31 15:15 | SUR.PHASEI ---
PT AWAKE ALERT ON RA PT HAD A SPINAL ANESTHESIA, PT HAS NORMAL SENSATION TO T-11 AREA, PT ABLE TO MOVE BILAT FEET AND BEND LT KNEE EASILY, HOB AT 15 DEGREES AND VSS. MONITOR SR WITH NO EXTOPY, IV PATENT.
--- NOTE | 2021-03-31 15:17 | SUR.PHASEI ---
PT HAS A PITTS CATHETER WITH STATLOCK TO LT THIGH, YELLOW URINE NOTED TO TUBING AND BAG.150 ML EMPTIED
--- NOTE | 2021-03-31 15:29 | SUR.PHASEI ---
PT AWAKE ALERT TAKING OCC ICE CHIPS PT DENIES PAIN AND NAUSEA, PT NOW OUT OF PHASE ONE AND HOLDING TO GIVE REPORT TO FLOOR NURSE RASHID. FAMILY UPDATED PT TO GO TO FLOOR IN APPROX 15-20 MINUTES. VSS. RT KNEE DRESSING D/I
--- NOTE | 2021-03-31 15:50 | ANE.PACU2 ---
Inpatient post-anesthesia follow up: Airway intact: Yes Vital signs: Temperature 97.7 F Pulse Rate 58 Respiratory Rate 17 Blood Pressure 113/69 Pulse Oximetry 97 Oxygen Delivery Me thod Room Air Oxygen Flow Rate Fraction of Inspir ed Oxygen Hydration adequate: Yes Nausea and vomiting: No Pain level: 2 Mental status: Baseline
[2021-03-31] MEDS: iron polysaccharide complex 150 mg Capsule PO (16:58)
[2021-03-31] MEDS: calcium carbonate 500 mg Chew Tablet 1000 MG PO (16:58)
[2021-03-31] MEDS: sennosides-docusate Tablet 2 TAB PO (16:58)
[2021-03-31] MEDS: oxyCODONE 5 mg IR Tab/Cap PO ×2 (18:30→22:08)
--- NOTE | 2021-03-31 19:35 | PC.ADMIT ---
[address] MO 19 Admission Note: The patient,Jaquan Alba,75 y/o, was given written information regarding hospital policies, unit procedures and contact persons. Patient's smoking status: . Vital Signs - 8 hr 03/31/21 14:51 03/31/21 14:55 03/31/21 15:00 Temperature 97.5 F L Pulse Rate 59 L 57 L 57 L Respiratory Rate 12 15 17 Blood Pressure 119/72 109/69 98/55 Pulse Oximetry 96 95 93 03/31/21 15:05 03/31/21 15:10 03/31/21 15:15 Temperature Pulse Rate 57 L 58 L 57 L Respiratory Rate 18 20 H 16 Blood Pressure 111/65 122/64 130/72 Pulse Oximetry 94 90 94 03/31/21 15:20 03/31/21 16:08 03/31/21 17:00 Temperature 97.7 F 97.5 F L Pulse Rate 58 L 57 L 65 Respiratory Rate 17 18 18 Blood Pressure 113/69 142/92 Pulse Oximetry 97 95 96 03/31/21 18:15 03/31/21 18:30 Temperature 98.0 F Pulse Rate 57 L Respiratory Rate 18 18 Blood Pressure 132/80 Pulse Oximetry 97
--- NOTE | 2021-03-31 19:35 | PC.NURSE ---
Shift report received from Alessandra HARMON. Patient in bed / rates pain at a 8/10. C/o of right calf pain. PRN medication administered at 1830 / patient aware not due at this time/ ice on surgical site. Will reassess in thirty minutes. Verma intact draining clear yellow urine. No other needs voiced at this time.
--- NOTE | 2021-03-31 20:16 | PC.NURSE ---
Dr Llanos notified of right calf pain will reassess on morning rounds. Orders received for ASA 325 mg now and daily/ Celebrex 200 mg now and BID.
[2021-03-31] MEDS: CELEcoxib 200 mg Capsule PO (22:06)
[2021-03-31] MEDS: aspirin 325 mg Tablet PO (22:06)
[2021-04-01] VITALS (11 sets, daily range): BP systolic 127–169; BP diastolic 69–103; PULSE 73–81; RESP 16–18; TEMP 36.6–36.9; O2SAT 90–97
--- NOTE | 2021-04-01 00:57 | PC.NURSE ---
Patient rates pain at a 10/02/ next PRN is available at 0210. No other needs voiced at this time.
[2021-04-01] MEDS: oxyCODONE 5 mg IR Tab/Cap PO (02:01)
--- NOTE | 2021-04-01 03:10 | PC.NURSE ---
Patient c/o of pain at a 01/02/ PRN administered at 0210/ ice re applied at this time.
--- NOTE | 2021-04-01 05:49 | PC.NURSE ---
Patient c/o of pain at a 01/02/ Dr Llanos notified and orders received.
[2021-04-01] MEDS: HYDROcodone-acetaminophen 10-325 mg Tablet 1 TAB PO (06:07)
[2021-04-01] MEDS: acetaminophen 1,000 MG/100 ML PIGGYBACK 400 MG IV ×3 (06:08→21:41)
[2021-04-01 06:23] LABS: Basophils # 0.1 10^3/uL (0.0-0.1); Basophils % 1.3 %; Eosinophils # 0.4 10^3/uL (0.0-0.8); Eosinophils % 4.3 %; Hemoglobin 15.3 g/dL (11.7-16.6); Lymphocytes # 1.5 10^3/uL (0.8-4.8); Lymphocytes % 17.9 %; Mean Corpuscular Hemoglobin 31.3 pg (28.0-34.0); Mean Platelet Volume 11.2 fL (7.4-10.4); Monocytes # 0.6 10^3/uL (0.2-0.9); Monocytes % 7.2 %; Neutrophils % 68.8 %; Nucleated Red Blood Cells % 0 %; Platelet Count 159 10^3/cmm (130-400); Red Blood Count 4.89 10^6/uL (4.1-5.3); Red Cell Distribution Width 13.1 % (12.1-15.1); White Blood Count 8.3 10^3/uL (4.0-10.0)
[2021-04-01 06:33] LABS: Anion Gap 17.1 (5-19); Blood Urea Nitrogen 14 mg/dL (8-23); Calcium 8.3 mg/dL (8.5-10.5); Carbon Dioxide 22 mmol/L (22-29); Chloride 102 mmol/L (98-107); Glucose 127 mg/dL (65-115); Osmolality Calculated 286 mOsm/kg (285-295); Potassium 4.1 mmol/L (3.5-5.1); Sodium 137 mmol/L (136-145)
[2021-04-01] MEDS: cholecalciferol (vitamin D3) 1,000 unit Tablet 1000 UNIT PO (08:47)
[2021-04-01] MEDS: calcium carbonate 500 mg Chew Tablet 1000 MG PO ×2 (08:47→17:31)
[2021-04-01] MEDS: multivitamin therapeutic Tablet 1 TAB PO (08:47)
[2021-04-01] MEDS: sennosides-docusate Tablet 2 TAB PO ×2 (08:47→17:32)
[2021-04-01] MEDS: aspirin 325 mg Tablet PO (08:47)
[2021-04-01] MEDS: CELEcoxib 200 mg Capsule PO ×2 (08:48→21:42)
[2021-04-01] MEDS: iron polysaccharide complex 150 mg Capsule PO ×2 (08:48→17:28)
--- NOTE | 2021-04-01 10:08 | PC.CHAP ---
Pastoral Care Encounter/Spiritual Assessment Type of Contact [] Declined roofing tile sorter visit [] Patient/Family/Request visit [] Outpatient visit [] Follow-up visit [] Physician referral [] Code/Alert [x] Routine visit [] Staff referral [] Actively dying [x] Patient sleeping [] Family support [] [] Out of room [] Palliative care [] [] Receiving care in room [] Pre-surgical visit [] Trauma [] Long length of stay [] ICU visit [] Other: Relational/Emotional Strength [] Patient feels connected with others/family/visitors/staff [] Distress [] Loneliness/isolation [] Abandonment Spirituality of Patient [] Person of Casandra [] Attends Jew of their Casandra [] Believes in Prayer [] Reads Bible or Orthodoxy materials [] There are Spiritual issues to be addressed Receiving Associate Interventions [] Prayer [] Active listening [] Non-anxious presence [] Spiritual/emotional support [] Crisis/trauma care [] Spiritual counseling [] Bereavement support [] Provided bereavement packet [] Provided Bible/devotional materials [] Provided toy/stuffed animal, coloring book to patient or family member [] Provided Communion [] Anointing/[place] [] Salvation [] Completed spiritual assessment [] Other: Impact on Illness or Injury [] Angry [] Fearful [] Anxious [] Often cries [] Exhaustion [] Unable to work [] Unable to attend hindu [] Unable to walk/stand [] Unable to read [] Unable to drive [] Unable to eat/drink [] Unable to sleep [] Unable to be with family [] Patient intubated [] Other: Summary Time spent with patient
[2021-04-01] MEDS: HYDROcodone-acetaminophen 5-325 mg Tablet 1 TAB PO (10:21)
[2021-04-01] MEDS: mupirocin oint 22 gm 1 APPLIC NASAL (10:22)
[2021-04-01] MEDS: ondansetron 2 mg/ML SDV 2 mL 4 MG IVP (11:09)
[2021-04-01] MEDS: oxyCODONE 5 mg IR Tab/Cap 10 MG PO ×3 (13:06→21:42)
[2021-04-01] MEDS: pregabalin 150 mg Capsule PO ×2 (13:06→21:43)
--- NOTE | 2021-04-01 14:13 | P.PN_ITS ---
Subjective Subjective: Interval history: Patient had a very rough night secondary to lack of pain control. He has not worked with physical therapy much by the time he was seen shortly afternoon. He was able to stand at the bedside, but he had not walked. He was also not considered safe for independent ambulation secondary to his participation in physical therapy. Vitals/I&O/Wt Last Vital Signs Temp 97.9 F 04/01/21 11:35 Pulse 73 04/01/21 11:35 Resp 18 04/01/21 13:06 BP 127/83 04/01/21 11:35 Pulse Ox 95 04/01/21 13:06 03/31/21 04/01/21 04/01/21 22:59 06:59 14:59 Intake Total 1220 / 1680 720 / 2400 700 / 700 Output Total 350 / 575 1900 / 2475 150 / 150 Balance 870 / 1105 -1180 / -75 550 / 550 Weight last 48 hrs Weight 280 lb Physical Exam Const: COMMON NORMALS: no acute distress, average body habitus, patient oriented x3 and alert GENERAL APPEARANCE: cooperative and comfortable ORIENTATION/CONSCIOUSNESS: Yes awake HENMT: COMMON NORMALS: normocephalic and atraumatic HEAD & SCALP: normocep halic and atraumatic Eye: GENERAL EYE: appearance normal, both eyes and all related structures Chest: COMMONS NORMALS: normal inspection of the chest Resp: COMMON NORMALS: normal respiratory effort EFFORT & INSPECTION: Yes able to speak in complete sentences and Yes symmetric chest movement Extremity: RIGHT LOWER EXTREMITY: Yes knee joint (Dressing is removed. The patient is neurologically intact.) Right knee: Yes inspection (No evidence of infection, no significant swelling), Yes palpation (Tender to attempted full extension.), Yes ROM (Lacks approximately 5 degrees of extension.) and Yes neurovascular exam (Motor and vascular function intact, no evidence of DVT) Neuro: COMMON NORMALS: patient oriented x3 SENSORIUM/ORIENTATION: Yes alert Psych: COMMON NORMALS: mental status grossly normal APPEARANCE: Yes grossly normal ATTITUDE: Yes calm and Yes engaged ATTENTION/CONCENTRATION: Yes attention grossly intact Skin: COMMON NORMALS: no rashes or lesions noted GENERAL SKIN EXAM: no rashes or lesions noted Urinary Catheter Management^: F: Cath Placed During This Visit: yes Reason for Continuing Indwelling Catheter: Perioperative Use in Selected Surgeries Urinary Catheter Date of Insertion: 03/31/21 Urinary Catheter Time of Insertion: 12:30 Data : 04/01/21 05:49 04/01/21 05:49 A&P Assessment and plan (1) Status post total right knee replacement not using cement: Patient was seen today, his first postoperative day following total knee arthroplasty. He had a rough night with regards to pain control. He was not able to aggressively work with physical therapy today. He was able to stand at the bedside, but he was not able to comfortably or safely ambulate. For this reason, he will be maintained overnight for an additional day of therapy tomorrow. We are also changing his pain meds to see if we can make him more comfortable. There is no evidence of DVT or infection. There is no significant swelling. He is neurologically intact. Status: Acute (2) Primary osteoarthritis of right knee: Status: Acute Attestations Medical Necessity Statement*: Patient requires ongoing hospitalization for pain management and ongoing therapy to allow him to be safe for discharge to home. Coding Level of Care Code Acute Technician [employer] for Jose Mckeon Diagnoses Status post total right knee replacement not using cement Z96.651 Primary osteoarthritis of right knee M17.11
[2021-04-01] MEDS: vancomycin 1,000 MG in sodium chloride 0.9% 250 ML 250 MG IV (14:35)
[2021-04-01] MEDS: chlorhexidine gluconate 0.12% Btl 473 mL 30 ML MUCOUS MEM ×2 (16:18→21:45)
--- NOTE | 2021-04-01 16:54 | PC.PHAR ---
pt states he takes care of his own medications-pt states he may take his medications 5 out of the 7 days pt states if he doesnt eat supper then he doesnt take his medications-pt was unsure if he was taking duloxetine 60mg daily medication [facility]-pt states he still takes metformin 1000mg qpm [facility] has metformin for 1000mg bid-notes are made in the pharmacy comments
--- NOTE | 2021-04-01 19:12 | PC.PHAR ---
Shift report received from Nolan HARMON. Patient awake in bed /rates pain at a 4/ aware next PRN available at 2130. No other needs voiced at this time.
[2021-04-02] VITALS (7 sets, daily range): BP systolic 116–128; BP diastolic 74–79; PULSE 70–82; RESP 17–18; TEMP 36.6–36.7; O2SAT 90–95
--- NOTE | 2021-04-02 01:45 | PC.NURSE ---
patient sleeping at this time / no s/s of pain or discomfort
[2021-04-02 02:40] LABS: Basophils # 0.1 10^3/uL (0.0-0.1); Eosinophils # 0.3 10^3/uL (0.0-0.8); Eosinophils % 3.4 %; Hematocrit 42.5 % (42.0-52.0); Hemoglobin 14.6 g/dL (11.7-16.6); Lymphocytes # 1.8 10^3/uL (0.8-4.8); Lymphocytes % 22.1 %; Mean Corpuscular HGB Conc 34.4 g/dL (30.0-36.0); Mean Corpuscular Hemoglobin 31.5 pg (28.0-34.0); Mean Corpuscular Volume 91.8 fl (80-94); Mean Platelet Volume 11.4 fL (7.4-10.4); Monocytes # 0.8 10^3/uL (0.2-0.9); Monocytes % 9.6 %; Neutrophils # 5.09 10^3/uL (1.8-7.7); Neutrophils % 63.6 %; Nucleated Red Blood Cells % 0 %; Platelet Count 153 10^3/cmm (130-400); Red Blood Count 4.63 10^6/uL (4.1-5.3); Red Cell Distribution Width 13.1 % (12.1-15.1)
[2021-04-02] MEDS: oxyCODONE 5 mg IR Tab/Cap 10 MG PO ×3 (02:50→15:04)
[2021-04-02 03:14] LABS: Anion Gap 16.6 (5-19); Blood Urea Nitrogen 13 mg/dL (8-23); Calcium 8.7 mg/dL (8.5-10.5); Carbon Dioxide 25 mmol/L (22-29); Chloride 99 mmol/L (98-107); Glucose 122 mg/dL (65-115); Osmolality Calculated 285 mOsm/kg (285-295); Potassium 3.6 mmol/L (3.5-5.1); Sodium 137 mmol/L (136-145)
[2021-04-02] MEDS: cholecalciferol (vitamin D3) 1,000 unit Tablet 1000 UNIT PO (08:19)
[2021-04-02] MEDS: sennosides-docusate Tablet 2 TAB PO (08:19)
[2021-04-02] MEDS: calcium carbonate 500 mg Chew Tablet 1000 MG PO (08:19)
[2021-04-02] MEDS: aspirin 325 mg Tablet PO (08:20)
[2021-04-02] MEDS: CELEcoxib 200 mg Capsule PO (08:20)
[2021-04-02] MEDS: iron polysaccharide complex 150 mg Capsule PO (08:20)
[2021-04-02] MEDS: multivitamin therapeutic Tablet 1 TAB PO (08:21)
--- NOTE | 2021-04-02 10:11 | PC.CHAP ---
Pastoral Care Encounter/Spiritual Assessment Type of Contact [x] Declined import export clerk visit [] Patient/Family/Request visit [] Outpatient visit [] Follow-up visit [] Physician referral [] Code/Alert [] Routine visit [] Staff referral [] Actively dying [] Patient sleeping [] Family support [] [] Out of room [] Palliative care [] [] Receiving care in room [] Pre-surgical visit [] Trauma [] Long length of stay [] ICU visit [] Other: Relational/Emotional Strength [] Patient feels connected with others/family/visitors/staff [] Distress [] Loneliness/isolation [] Abandonment Spirituality of Patient [] Person of Casandra [] Attends Orthodox of their Casandra [] Believes in Prayer [] Reads Bible or Uatsdin materials [] There are Spiritual issues to be addressed Anode Adjuster Interventions [] Prayer [] Active listening [] Non-anxious presence [] Spiritual/emotional support [] Crisis/trauma care [] Spiritual counseling [] Bereavement support [] Provided bereavement packet [] Provided Bible/devotional materials [] Provided toy/stuffed animal, coloring book to patient or family member [] Provided Communion [] Anointing/[place] [] Salvation [] Completed spiritual assessment [] Other: Impact on Illness or Injury [] Angry [] Fearful [] Anxious [] Often cries [] Exhaustion [] Unable to work [] Unable to attend sikhism [] Unable to walk/stand [] Unable to read [] Unable to drive [] Unable to eat/drink [] Unable to sleep [] Unable to be with family [] Patient intubated [] Other: Summary Declined import export clerk visit Time spent with patient 5 mins
--- NOTE | 2021-04-02 11:36 | P.DS_ITS ---
Discharge Providers Date of Admission: 03/31/21 15:11 Date of Discharge: April 02, 2021 Attending Provider at Admission: Karissa Llanos MD Attending Provider at Discharge: Karissa Llanos MD Primary Care Provider: Hermilo Montenegro DO Diagnoses at Discharge Discharge Diagnosis (1) Status post total right knee replacement not using cement: Status: Acute Permanent problem details: The [place] total knee system with a size 5 triathlon beaded posterior stabilized femur right, a triathlon titanium tibial component size 6 beaded, a triathlon X3 posterior stabilized tibial bearing insert size 6 X 13 mm and a beaded triathlon titanium asymmetric patella size 35 x 10 mm (2) Primary osteoarthritis of right knee: Status: Acute Reason for Visit Reason for Visit: Osteoarthritis right knee Hospital Course Hospital Course This 75-year-old gentleman presented on March 31 for same-day surgery in the form of a right total knee arthroplasty. The patient was admitted po stoperatively to the floor under observation status for pain management and physical therapy. He has had difficulty with his pain control. Multiple medications have been tried during his stay. He is seen today and is awaiting physical therapy to be able to go up and down steps so that he is safe for his discharge to home. Physical Exam Const: COMMON NORMALS: no acute distress, average body habitus, patient oriented x3 and alert GENERAL APPEARANCE: cooperative and comfortable ORIENTATION/CONSCIOUSNESS: Yes awake HENMT: COMMON NORMALS: normocephalic and atraumatic HEAD & SCALP: normocephalic and atraumatic Eye: GENERAL EYE: appearance normal, both eyes and all related structures Chest: COMMONS NORMALS: normal inspection of the chest Resp: COMMON NORMALS: normal respiratory effort EFFORT & INSPECTION: Yes able to speak in complete sentences and Yes symmetric chest movement Extremity: RIGHT LOWER EXTREMITY: Yes knee joint Right knee: Yes inspection (Swelling is significantly diminished), Yes palpation (Decreased tenderness to palpation.), Yes ROM (Not evaluated, but near full extension is present.) and Yes neurovascular exam (Intact distally) Neuro: COMMON NORMALS: patient oriented x3 SENSORIUM/ORIENTATION: Yes alert Psych: COMMON NORMALS: mental status grossly normal APPEARANCE: Yes grossly normal ATTITUDE: Yes calm and Yes engaged ATTENTION/CONCENTRATION: Yes attention grossly intact Skin: COMMON NORMALS: no rashes or lesions noted GENERAL SKIN EXAM: no rash es or lesions noted Urinary Catheter Management^: F: Cath Placed During This Visit: yes Reason for Continuing Indwelling Catheter: Perioperative Use in Selected Surgeries Urinary Catheter Date of Insertion: 03/31/21 Urinary Catheter Time of Insertion: 12:30 Discharge Data Data Completed and Pending: Completed Studies During Hospitalization Category Date Time Status XR knee RT 1-2V 7 [id number] Urgent Exams 03/31/21 14:52 Completed Pending at discharge Category Date Time Status Complete Blood Co unt w/Auto AM LABS Lab 04/02/21 04:00 Ordered Complete Blood Co unt w/Auto AM LABS Lab 04/03/21 04:00 Uncollected Labs from last 24 hours 04/02/21 04/02/21 02:00 02:00 WBC 8.0 RBC 4.63 Hgb 14.6 Hct 42.5 MCV 91.8 MCH 31.5 MCHC 34.4 RDW 13.1 Plt Count 153 MPV 11.4 H Neut % (Auto) 63.6 Lymph % (Auto) 22.1 [place] % (Auto) 9.6 Eos % (Auto) 3.4 Baso % (Auto) 1.0 Neut # (Auto) 5.09 Lymph # (Auto) 1.8 [place] # (Auto) 0.8 Eos # (Auto) 0.3 Baso # (Auto) 0.1 Nucleated RBC % (a uto) 0 Nucleated RBCs # 0.0 Sodium 137 Potassium 3.6 Chloride 99 Carbon Dioxide 25 Anion Gap 16.6 BUN 13 Creatinine 1.1 GFR Calculation Not Reportable Glucose 122 H Calculated Osmolal ity 285 Calcium 8.7 Vitals: Last Vital Signs Temp 98.1 F 04/02/21 07:33 Pulse 82 04/02/21 07:33 Resp 18 04/02/21 11:07 BP 128/79 04/02/21 07:33 Pulse Ox 95 04/02/21 11:07 Discharge Plan Discharge Patient Disposition: Home Health Service Condition: Stable Prescriptions: New celecoxib 200 mg Capsule 200 mg PO DAILY 30 Days Qty: 30 RF: 0 aspirin 325 mg Tablet 325 mg PO DAILY 30 Days RF: 0 oxycodone 5 mg Tablet 10 mg PO Q4H PRN (Reason: Severe Pain) 7 Days Qty: 40 RF: 0 Continued gemfibrozil 600 mg tablet 600 mg PO QPM RF: 0 methocarbamol 750 mg tablet 750 mg PO TID PRN (Reason: Muscle Spasm) RF: 0 pregabalin 150 mg capsule 150 mg PO BEDTIME RF: 0 cetirizine 10 mg tablet 10 mg PO QPM RF: 0 allopurinol 300 mg tablet 300 mg PO QPM RF: 0 colchicine 0.6 mg tablet 0.6 mg PO DAILY PRN (Reason: gout flareup) RF: 0 cholecalciferol (vitamin D3) [Vitamin D3] 50 mcg (2,000 unit) capsule 50 mcg PO QPM RF: 0 amlodipine 5 mg tablet 5 mg PO QPM RF: 0 lisinopril 10 mg tablet 10 mg PO DAILY RF: 0 albuterol sulfate [ProAir HFA] 90 mcg/actuation HFA aerosol inhaler 2 puff inhalation Q6H PRN (Reason: Shortness Of Breath) RF: 0 (DME) AFO to right See Rx Instructions .Route .MEDSUPPLY Qty: 1 RF: 0 (DME) lancets [Accu-Chek Softclix Lancets] Misc See Rx Instructions .ROUTE .MEDSUPPLY Qty: 50 RF: 0 meloxicam 15 mg Tablet 15 mg PO DAILY PRN (Reason: Pain) RF: 0 duloxetine 60 mg Capsule,Delayed Release(Dr/Ec) 60 mg PO DAILY RF: 0 aspirin-sod bicarb-citric acid 324 mg Tablet, Effervescent 1 ea PO PRN PRN (Reason: indigestion) RF: 0 metformin 1,000 mg Tablet 1,000 mg PO QPM RF: 0 hydrochlorothiazide 25 mg Tablet 12.5 mg PO QAM RF: 0 mupirocin 2 % Ointment 1 applic TOPICAL BID PRN (Reason: Itching) RF: 0 Held naproxen sodium [Aleve] 220 mg capsule 220 mg PO BID PRN (Reason: Pain) RF: 0 Hold Instructions: Resume on 05/01/21. Resume at completion of Celebrex aspirin [Enteric Coated Aspirin] 81 mg tablet,delayed release (DR/EC) 81 mg PO QPM RF: 0 Hold Instructions: Resume on 05/01/21. Discharge Orders: Discharge Order (Routine); Ordered 04/02/21 Ordered By: Karissa Llanos Referrals: Karissa Llanos MD [Physician] - 04/13/21 10:15 am Discharge Diet: Advance as tolerated and Usual diet Discharge Activity: Resume usual activity, Increase activity as tolerated, Limit activity as instructed and Use walker/crutches as instructed Activity Restrictions/Additional Instructions: Home health with weightbearing as tolerated. Gait training. Range of motion. Keep extremity elevated and iced. Discharge Attestations Time Spent in Discharge Care*: greater than 30 min Specific Discharge Activities: educating patient, educating and/or supporting family/caregiver, documenting/other paperwork and evaluating patient/reviewing data Quality Metrics Clinical Quality Measures During this hospital stay, did patient experience: None Coding Level of Care Code Acute [facility] note Diagnoses Status post total right knee replacement not using cement Z96.651 Primary osteoarthritis of right knee M17.11
[2021-04-02 12:48] LABS: Basophils # 0.1 10^3/uL (0.0-0.1); Basophils % 0.9 %; Eosinophils # 0.3 10^3/uL (0.0-0.8); Eosinophils % 2.7 %; Hematocrit 44.6 % (42.0-52.0); Lymphocytes # 1.6 10^3/uL (0.8-4.8); Lymphocytes % 14.7 %; Mean Corpuscular HGB Conc 33.6 g/dL (30.0-36.0); Mean Corpuscular Hemoglobin 31.1 pg (28.0-34.0); Mean Corpuscular Volume 92.5 fl (80-94); Mean Platelet Volume 11.5 fL (7.4-10.4); Monocytes # 0.9 10^3/uL (0.2-0.9); Monocytes % 8.5 %; Neutrophils # 7.74 10^3/uL (1.8-7.7); Neutrophils % 72.6 %; Nucleated Red Blood Cells % 0 %; Platelet Count 171 10^3/cmm (130-400); Red Blood Count 4.82 10^6/uL (4.1-5.3); White Blood Count 10.7 10^3/uL (4.0-10.0)
--- NOTE | 2021-04-02 14:25 | PC.CHAP ---
Pastoral Care Encounter/Spiritual Assessment Type of Contact [] Declined telemarketing sales representative visit [] Patient/Family/Request visit [] Outpatient visit [] Follow-up visit [] Physician referral [] Code/Alert [x] Routine visit [] Staff referral [] Actively dying [] Patient sleeping [] Family support [] [] Out of room [] Palliative care [x] [x] Receiving care in room [] Pre-surgical visit [] Trauma [x] Long length of stay [] ICU visit [] Other: Relational/Emotional Strength [x] Patient feels connected with others/family/visitors/staff [] Distress [] Loneliness/isolation [] Abandonment Spirituality of Patient [x] Person of Casandra [] Attends Advent of their [place] [x] Believes in Prayer [] Reads Bible or Tenriism materials [] There are Spiritual issues to be addressed Furnace Repairer Helper Interventions [x] Prayer [x] Active listening [x] Non-anxious presence [x] Spiritual/emotional support [] Crisis/trauma care [x] Spiritual counseling [] Bereavement support [] Provided bereavement packet [] Provided Bible/devotional materials [] Provided toy/stuffed animal, coloring book to patient or family member [] Provided Communion [] Anointing/[place] [x] Salvation [] Completed spiritual assessment [] Other: Impact on Illness or Injury [] Angry [] Fearful [x] Anxious [] Often cries [] Exhaustion [x] Unable to work [] Unable to attend cheondoism [] Unable to walk/stand [] Unable to read [] Unable to drive [] Unable to eat/drink [] Unable to sleep [] Unable to be with family [] Patient intubated [] Other: Summary Meet with bethany he is going on [facility] + 3 2 daugters and son-in law, he will be going at this point has a good attitude Time spent with patient 10 mins
== END 2021-04-02 15:25 | disposition home health service (06) ==
LOC: MEDSURG 15:11
PROVIDERS: Admitting Provider Specialist; PCP Emergency Medicine Emergency Medical Services; Visit Provider Specialist
PROC: (CPT 27447; principal; 2021-03-31 10:35)
DX: M17.11 Unilateral primary osteoarthritis, right knee (principal); I10 Essential (primary) hypertension; K21.9 Gastro-esophageal reflux disease without esophagitis; E78.5 Hyperlipidemia, unspecified; E66.01 Morbid (severe) obesity due to excess calories; Z68.41 Body mass index [BMI] 40.0-44.9, adult; J44.9 Chronic obstructive pulmonary disease, unspecified; E10.9 Type 1 diabetes mellitus without complications; Z79.84 Long term (current) use of oral hypoglycemic drugs
CPT/HCPCS: 27447; 36415; 36416; 51702; 73560; 80048; 80053; 81003; 82962; 85025; 94640; 94660; 97110; 97116; 97161; 97165; 97530; 97535; C1776; C9290; G0378; J2250; J2405; J2704; J3010; J3370; J3490; J7030; J7050; J7611

== ENCOUNTER 2021-04-06 11:34 | Outpatient (CLI) | payer OTHER, MEDICARE, SELFPAY ==
[2021-04-06 11:51] LABS: Add Urine Microscopic? NO; Charge for UA Resulting for Rev
[2021-04-06 12:05] LABS: Bilirubin Urine Neg (Negative); Blood Urine Neg (Negative); Glucose Urine UA Norm (Normal); Ketones Urine Negative (Negative); Leukocyte Esterase Urine Negative (Negative); Nitrate Urine Negative (Negative); Protein Urine Neg (Negative); Urine Appearance Clear (CLEAR); Urine Color Straw (Yellow); Urobilinogen Urine Norm (Negative); pH Urine 6.5 (5-7)
== END 2021-04-06 11:35 | disposition home or self-care (01) ==
PROVIDERS: PCP Emergency Medicine Emergency Medical Services; Visit Provider Emergency Medicine Emergency Medical Services
DX: M19.90 Unspecified osteoarthritis, unspecified site (principal)
CPT/HCPCS: 81003

== ENCOUNTER → 2021-04-13 10:05 | Outpatient (BNVA) | payer OTHER, MEDICARE, SELFPAY | PROVIDERS: PCP Emergency Medicine Emergency Medical Services; Visit Provider Specialist | DX: Z96.651 Presence of right artificial knee joint (principal); M17.11 Unilateral primary osteoarthritis, right knee | CPT/HCPCS: 73560; 73565 ==

== ENCOUNTER 2021-04-29 10:10 | Emergency (ER) | payer OTHER, MEDICARE, SELFPAY ==
[2021-04-29 10:53] VITALS: BP 125/75; PULSE 72; RESP 18; TEMP 36.4; O2SAT 98; BMI 37.6
[2021-04-29 14:03] LABS: Basophils # 0.1 10^3/uL (0.0-0.1); Basophils % 1.2 %; Eosinophils # 0.8 10^3/uL (0.0-0.8); Eosinophils % 8.9 %; Hematocrit 41.9 % (42.0-52.0); Hemoglobin 14.2 g/dL (11.7-16.6); Lymphocytes # 2.1 10^3/uL (0.8-4.8); Lymphocytes % 24.8 %; Mean Corpuscular HGB Conc 33.9 g/dL (30.0-36.0); Mean Corpuscular Volume 91.5 fl (80-94); Monocytes # 0.5 10^3/uL (0.2-0.9); Monocytes % 5.5 %; Neutrophils # 5.02 10^3/uL (1.8-7.7); Nucleated Red Blood Cells % 0 %; Platelet Count 193 10^3/cmm (130-400); Red Blood Count 4.58 10^6/uL (4.1-5.3); Red Cell Distribution Width 13.6 % (12.1-15.1); White Blood Count 8.5 10^3/uL (4.0-10.0)
[2021-04-29 14:27] LABS: Alanine Aminotransferase 15 U/L (0-41); Albumin Level 3.9 g/dL (3.5-5.2); Alkaline Phosphatase 86 IU/L (40-130); Anion Gap 19.2 (5-19); Aspartate Amino Transferase 15 U/L (0-40); Blood Urea Nitrogen 18 mg/dL (8-23); C Reactive Protein 5.6 mg/L (0.0-4.9); Calcium 8.9 mg/dL (8.5-10.5); Carbon Dioxide 23 mmol/L (22-29); Chloride 99 mmol/L (98-107); Glucose 96 mg/dL (65-115); Osmolality Calculated 286 mOsm/kg (285-295); Potassium 4.2 mmol/L (3.5-5.1); Sodium 137 mmol/L (136-145); Total Bilirubin 0.3 mg/dL (0.15-1.2); Total Protein 6.9 g/dL (6.6-8.7)
--- NOTE | 2021-04-29 15:28 | USCV_ITS ---
Jaquan Alba Age: 75 Gender: M : 1945 Exam Date: 04/29/2021 15:50 Ordering Phys: Batool Romero Technologist: Exam Location: [facility] [place]_ Indication: POST RT KNEE SURG SWELLING HISTORY: Lower extremity swelling. PROCEDURES: Venous duplex imaging was performed in only the left lower extremity. The following venous structures were evaluated: common femoral vein, profunda vein, proximal portion of the greater saphenous vein, superficial femoral vein, and the popliteal vein. In addition, the posterior tibial and peroneal trunk were evaluated. FINDINGS: Normal 2-D Doppler and augmentation and compressibility throughout the lower extremity venous structures. Additional imaging through the proximal calf veins also reveals no thrombus. Limited evaluation of the greater saphenous vein is patent with no thrombus. CONCLUSIONS No DVT right lower extremity. Dr. Ivon Sepulveda DO (Electronically Signed) Final Date: 30 April 2021 15:50 S
--- NOTE | 2021-04-29 15:31 | ED_ITS ---
HPI - Extremity Problem General: Chief complaint: Extremity Problem,Nontraumatic Stated complaint: KNEW KNEE DEC WORRIED INFECTECTED [facility] SENT HIM Time Seen by Provider: 04/29/21 15:28 Source: patient and family Mode of arrival: wheelchair Limitations: no limitations History of Present Illness: HPI Narrative: Patient is a nice 75-year-old male who presents to ED today along with his and daughter for concerns of right lower extremity swelling and redness/warmth to his right knee. Patient underwent total knee replacement by Dr. Llanos approximately a month ago. They h ave followed up appropriately and states leg was doing well into a few days ago when daughter began noticing some redness and warmth to the anterior knee. She also noticed some ecchymosis to the lateral aspect of his thigh. Daughter states over the past few days the leg appears more swollen. Patient is still continuing his home health therapy. He does not complain of severe pain in the joint and still maintains fairly good range of motion. No fevers. No new injury or trauma. Complaint: extremity swelling and joint swelling Onset (ago): day(s) Pain Consistency: constant Location: right and lower extremity Exacerbating factors: weight bearing Associated symptoms: Reports no associated symptoms; Deny chest pain or fever(s) Context: recent surgery/procedure Review of Systems Const: Denies: fever(s), chills, body aches, fatigue or malaise Card: Denies: chest pain Resp: Denies: dyspnea Musc: Reports: extremity swelling, joint pain (R knee), joint swelling (R knee), joint redness and joint warmth Neuro: Denies: numbness in extremities, weakness in extremities or sensory changes [facility] ED PFSH: Medical History COPD (chronic obstructive pulmonary disease) Diabetes 1.5, managed as type 1 Essential (primary) hypertension GERD (gastroesophageal reflux disease) Hyperlipemia Surgical History History of coronary artery stent placement Family History Mother Cancer Other Diabetes Denies family history of CAD (coronary artery disease) Stroke Social History Alcohol intake: never Lives independently: Yes Household members: spouse Marital status: Physical Exam 2 Const: COMMON NORMALS: no acute distress, patient oriented x3, no limitations and alert GENERAL APPEARANCE: cooperative NUTRITIONAL APPEARANCE: obese ORIENTATION/CONSCIOUSNESS: Yes awake, Yes oriented to person, Yes oriented to place and Yes oriented to time Extremity: OTHER: pt has fairly significant swelling to R LE when compared to L; no severe calf pain/negative Kelly's; he has steri-strips overlying surgical incision; incision itself looks really well and clean; no drainage; he does have some mild/mod overlying erythema and warmth to anterior knee but maintains good ROM; based on his clinical exam I would have very low suspicion for a septic joint at this time Neuro: COMMON NORMALS: patient oriented x3, moves all extremities, no focal motor deficits and no sensory deficits noted SENSORIUM/ORIENTATION: Yes alert, Yes oriented to person, Yes oriented to place and Yes oriented to time Skin: NARRATIVE SKIN EXAM: see extremity assessment for pertinent skin findings Course Consultations: Consultation #1: Dr. Cota-recommends placing on Augmentin and he will see in clinic tomorrow. Vital Signs: Vital signs: Vital Signs Temperature 97.5 F L 04/29/21 10:53 Pulse Rate 72 04/29/21 10:53 Respiratory Rate 18 04/29/21 10:53 Blood Pressure 125/75 04/29/21 10:53 Pulse Oximetry 98 04/29/21 10:53 MDM - Extremity (Nontraumatic) MDM Narrative: Medical decision making narrative: Patient is a nice 75-year-old male here for right knee redness/warmth and right lower extremity swelling over the past few days. He is status post TKA by Dr. Llanos about a month ago. On clinical exam he does have some erythema and warmth to the anterior knee. His surgical incision appears well. He maintains good ROM of the joint. Clinically I have no suspicion for a septic joint based on presentation. He is not tachycardic or febrile. He has a normal white count. CRP is 5.6. US of lower extremity shows no DVT. I spoke to Dr. Cota who is on-call for orthopedics (Dr. Llanos is out until next week) who recommended placing patient on oral Augmentin and he will see in office tomorrow. Patient was given IM Rocephin prior to discharge to cover for MSSA. Lab Data: Attestation: I reviewed the patient's lab results. Labs: Lab Results 04/29/21 04/29/21 13:44 13:44 WBC 8.5 10^3/uL 10^3/ uL (4.0-10.0) RBC 4.58 10^6/uL 10^6 /uL (4.1-5.3) Hgb 14.2 g/dL g/dL (11.7-16.6) Hct 41.9 % L % (42.0-52.0) MCV 91.5 fl fl (80-94) MCH 31.0 pg pg (28.0-34.0) MCHC 33.9 g/dL g/dL (30.0-36.0) RDW 13.6 % % (12.1-15.1) Plt Count 193 10^3/cmm 10^3 /cmm (130-400) MPV 11.0 fL H fL (7.4-10.4) Neut % (Auto) 59.0 % % Lymph % (Auto) 24.8 % % [place] % (Auto) 5.5 % % Eos % (Auto) 8.9 % % Baso % (Auto) 1.2 % % Neut # (Auto) 5.02 10^3/uL 10^3 /uL (1.8-7.7) Lymph # (Auto) 2.1 10^3/uL 10^3/ uL (0.8-4.8) [place] # (Auto) 0.5 10^3/uL 10^3/ uL (0.2-0.9) Eos # (Auto) 0.8 10^3/uL 10^3/ uL (0.0-0.8) Baso # (Auto) 0.1 10^3/uL 10^3/ uL (0.0-0.1) Nucleated RBC % (a uto) 0 % % Nucleated RBCs # 0.0 /100WBC /100W BC Sodium 137 mmol/L mmol/L (136-145) Potassium 4.2 mmol/L mmol/L (3.5-5.1) Chloride 99 mmol/L mmol/L (98-107) Carbon Dioxide 23 mmol/L mmol/L (22-29) Anion Gap 19.2 H (5-19) BUN 18 mg/dL mg/dL (8-23) Creatinine 0.9 mg/dL mg/dL (0.7-1.2) GFR Calculation Not Reportable Glucose 96 mg/dL mg/dL (65-115) Calculated Osmolal ity 286 mOsm/kg mOsm/ kg (285-295) Calcium 8.9 mg/dL mg/dL (8.5-10.5) Total Bilirubin 0.3 mg/dL mg/dL (0.15-1.2) AST 15 U/L U/L (0-40) ALT 15 U/L U/L (0-41) Alkaline Phosphata se 86 IU/L IU/L (40-130) C-Reactive Protein 5.6 mg/L H mg/L (0.0-4.9) Total Protein 6.9 g/dL g/dL (6.6-8.7) Albumin 3.9 g/dL g/dL (3.5-5.2) Globulin 3.0 g/dL g/dL (1.3-4.6) Imaging Data^: US R LE venous: My impression: Per Devon Campbell, tech-no DVT, old superficial thrombophelbitis, mild R inguinal lymphadenopathy XR R knee: Radiologist's impression: [address] [address] XRay Report Signed Patient: Jaquan Alba Unit #: [id number] : 1945 Age/Sex: 75 / M ADM Date: 04/29/21 Loc: ER Room/Bed: Attending Dr: Ordering Provider/Ordering MD: Batool Romero Date of Service: 04/29/21 Procedure(s): XR knee RT 3V* [id number] Accession Number(s): [id number] Report Number: [id number] WS: [id number] Right knee, 3 views, 04/29/2021 Clinical Data: TKA; redness/swelling Comparison: Right knee, 04/13/2021. Findings: The right knee arthroplasty is in good position. No loosening is seen. There are no fractures or dislocations. The soft tissues show vascular calcification. XR/XR knee RT 3V* [id number] Impression: Right knee arthroplasty unchanged. Kellgren-Hieu Classification: Dictated By: Anitha Rivero MD Signed By: Anitha Rivero MD Signed Date/Time: 04/29/211619 DD/ 18 Discharge Plan Discharge Patient Disposition: Home Clinical Impression: Superficial incisional infection of surgical site Condition: Stable Prescriptions: New Augmentin 875-125 mg tablet 1 tab PO Q12H 7 Days Qty: 14 RF: 0 No Action gemfibrozil 600 mg tablet 600 mg PO QPM RF: 0 methocarbamol 750 mg tablet 750 mg PO TID PRN (Reason: Muscle Spasm) RF: 0 pregabalin 150 mg capsule 150 mg PO BEDTIME RF: 0 cetirizine 10 mg tablet 10 mg PO QPM RF: 0 allopurinol 300 mg tablet 300 mg PO QPM RF: 0 colchicine 0.6 mg tablet 0.6 mg PO DAILY PRN (Reason: gout flareup) RF: 0 cholecalciferol (vitamin D3) [Vitamin D3] 50 mcg (2,000 unit) capsule 50 mcg PO QPM RF: 0 amlodipine 5 mg tablet 5 mg PO QPM RF: 0 lisinopril 10 mg tablet 10 mg PO DAILY RF: 0 naproxen sodium [Aleve] 220 mg capsule 220 mg PO BID PRN (Reason: Pain) RF: 0 Hold Instructions: Resume on 05/01/21. Resume at completion of Celebrex albuterol sulfate [ProAir HFA] 90 mcg/actuation HFA aerosol inhaler 2 puff inhalation Q6H PRN (Reason: Shortness Of Breath) RF: 0 (DME) AFO to right See Rx Instructions .Route .MEDSUPPLY Qty: 1 RF: 0 aspirin [Enteric Coated Aspirin] 81 mg tablet,delayed release (DR/EC) 81 mg PO QPM RF: 0 Hold Instructions: Resume on 05/01/21. (DME) lancets [Accu-Chek Softclix Lancets] Misc See Rx Instructions .ROUTE .MEDSUPPLY Qty: 50 RF: 0 celecoxib [Celebrex] 200 mg capsule 200 mg PO BID Qty: 60 RF: 0 oxycodone 5 mg capsule 5 mg PO Q6H PRN (Reason: pain) 7 Days Qty: 40 RF: 0 meloxicam 15 mg Tablet 15 mg PO DAILY PRN (Reason: Pain) RF: 0 duloxetine 60 mg Capsule,Delayed Release(Dr/Ec) 60 mg PO DAILY RF: 0 aspirin-sod bicarb-citric acid 324 mg Tablet, Effervescent 1 ea PO PRN PRN (Reason: indigestion) RF: 0 metformin 1,000 mg Tablet 1,000 mg PO QPM RF: 0 hydrochlorothiazide 25 mg Tablet 12.5 mg PO QAM RF: 0 mupirocin 2 % Ointment 1 applic TOPICAL BID PRN (Reason: Itching) RF: 0 aspirin 325 mg Tablet 325 mg PO DAILY 30 Days RF: 0 Discharge Orders: Discharge ED (Routine); Ordered 04/29/21 Ordered By: Batool Romero Referrals: Hermilo Montenegro, [Primary Care Provider] - Activity Restrictions/Additional Instructions: As we discussed the [facility] will see you tomorrow at 9:30 AM for further evaluation of your knee. Take your antibiotic pill given to you this evening and fill the prescription tomorrow morning. You have also been given IM antibiotics prior to discharge. Coding Level of Care Code ED Inventory And Pricing Associate for Jose Fwd Exam Expanded Problem Focused
--- NOTE | 2021-04-29 15:32 | XR_ITS ---
WS: [email or web address] Right knee, 3 views, 04/29/2021 Clinical Data: TKA; redness/swelling Comparison: Right knee, 04/13/2021. Findings: The right knee arthroplasty is in good position. No loosening is seen. There are no fractures or disl ocations. The soft tissues show vascular calcification. XR/XR knee RT 3V* [id number] Impression: Right knee arthroplasty unchanged. Kellgren-Hieu Classification:
--- NOTE | 2021-04-29 15:51 | PC.NURSE ---
pt placed in rm 5, right leg has noted edema, sono at the bedside, daughter and at the bedside
[2021-04-29] MEDS: amoxicillin-clav 875-125 mg Tablet 1 TAB PO (16:34)
[2021-04-29] MEDS: cefTRIAXone 1,000 MG in lidocaine 1% 2.1 ML 2 MG IM (16:36)
== END 2021-04-29 17:00 | disposition home or self-care (01) ==
PROVIDERS: Emergency Provider Physician Assistant; PCP Emergency Medicine Emergency Medical Services
DX: T81.41XA Infection following a procedure, superficial incisional surgical site, initial encounter (principal); R60.0 Localized edema; M25.461 Effusion, right knee; M25.561 Pain in right knee; M79.89 Other specified soft tissue disorders; E13.8 Other specified diabetes mellitus with unspecified complications; Z79.84 Long term (current) use of oral hypoglycemic drugs; I10 Essential (primary) hypertension; K21.9 Gastro-esophageal reflux disease without esophagitis; E78.5 Hyperlipidemia, unspecified; J44.9 Chronic obstructive pulmonary disease, unspecified
CPT/HCPCS: 36415; 73562; 80053; 85025; 86140; 93971; 96372; 99283; J0696

== ENCOUNTER → 2021-05-04 08:12 | Outpatient (BNVA) | payer OTHER, SELFPAY | PROVIDERS: PCP Emergency Medicine Emergency Medical Services; Visit Provider Specialist | DX: T81.41XA Infection following a procedure, superficial incisional surgical site, initial encounter (principal); Y83.8 Other surgical procedures as the cause of abnormal reaction of the patient, or of later complication, without mention of misadventure at the time of the procedure; Z96.651 Presence of right artificial knee joint; M17.11 Unilateral primary osteoarthritis, right knee | CPT/HCPCS: 73560; 73565 ==

== ENCOUNTER → 2021-05-13 11:16 | Outpatient (BNVA) | payer OTHER, SELFPAY | PROVIDERS: PCP Emergency Medicine Emergency Medical Services; Visit Provider Specialist | DX: Z96.651 Presence of right artificial knee joint (principal) | CPT/HCPCS: 73560; 73565 ==

== ENCOUNTER 2021-05-26 11:45 | Emergency (ER) | payer OTHER, MEDICARE, SELFPAY ==
[2021-05-26 12:23] VITALS: BP 120/69; PULSE 67; RESP 16; TEMP 36.4; O2SAT 97
--- NOTE | 2021-05-26 12:33 | USCV_ITS ---
Jaquan Alba Age: 75 Gender: M : 1945 Exam Date: 05/26/2021 12:54 Ordering Phys: Christopher Rizzo DO Technologist: KOMAL Exam Location: [facility] Indication: c/o Painful, erythematous RLE two months s/p RIGHT total knee replacement. The anterior surface of the RIGHT knee is quite painful, especially localized at an area just superior to the patella. Hx RLE DVT 1997 following a timber felling injury. HISTORY: c/o Painful, erythematous RLE two months s/p RIGHT total knee replacement. The anterior surface of the RIGHT knee is quite painful and erythematous, especially localized at an area just superior to the patella. There is also generalized RIGHT knee and calf edema. Hx RLE DVT 1997 following a timber felling injury. PROCEDURES: Venous duplex imaging was performed in only the right lower extremity. The following venous structures were evaluated: common femoral vein, profunda vein, proximal portion of the greater saphenous vein, superficial femoral vein, and the popliteal vein. FINDINGS: Normal 2-D Doppler and augmentation and compressibility throughout the lower extremity venous structures. Additional imaging through the proximal calf veins also reveals no thrombus. Limited evaluation of the greater saphenous vein is patent with no thrombus.. Ill defined mixed echogenicity mass anterior knee in area of pain, 2.3 x 1.3 cm. Probable postop changes, no increased vascularity. CONCLUSIONS No DVT right lower extremity. Dr. Ivon Sepulveda DO (Electronically Signed) Final Date: 26 May 2021 13:39 S
--- NOTE | 2021-05-26 12:54 | W.ED.EXTPRO ---
Documented by User: [email or web address] Bull 05/26/21 14:18 HPI - Extremity Problem General: Chief complaint: Extremity Problem,Nontraumatic Stated complaint: RIGHT LEG PAIN Time Seen by Provider: 05/26/21 12:32 Source: patient and family () Mode of arrival: ambulatory Limitations: no limitations History of Present Illness: Patient is a 75-year-old male who presents to ED today along with his after he was told to come here by [place]. [place]egro [place] for rule out DVT to his right lower extremity. Patient states he chronically has swelling to the right leg. Patient had a total knee replacement by Dr. Llanso several months ago and states swelling following the surgery has been worse. He was seen at our facility last month for concerns for right knee infection following surgery. He was placed on antibiotics at that time and has had several orthopedic follow-up visits since then. Patient states his knee seems to be doing good. Patient states he has had an ultrasound of his right lower extremity a few weeks ago that was negative. He is not sure why Dr. Montenegro sent him here. Complaint: extremity swelling Onset (ago): month(s) Pain Consistency: constant Location: right and lower extremity Radiation: none Relieving factors: other (elevation) Associated symptoms: Reports no associated symptoms; Deny chest pain or fever(s) Review of Systems Const: Denies: fever(s), chills, body aches, fatigue or malaise Card: Denies: chest pain Resp: Denies: dyspnea Musc: Reports: extremity pain and extremity swelling; Denies: joint pain or joint swelling Neuro: Denies: numbness in extremities, weakness in extremities or sensory changes [facility] ED PFSH: Medical History COPD (chronic obstructive pulmonary disease) Diabetes 1.5, managed as type 1 Essential (primary) hypertension GERD (gastroesophageal reflux disease) Hyperlipemia Surgical History History of coronary artery stent placement Family History Mother Cancer Other Diabetes Denies family history of CAD (coronary artery disease) Stroke Social History Alcohol intake: never Lives independently: Yes Household members: spouse Marital status: Physical Exam Const: COMMON NORMALS: no acute distress, patient oriented x3, no limitations and alert GENERAL APPEARANCE: cooperative NUTRITIONAL APPEARANCE: obese Resp: COMMON NORMALS: normal respiratory effort and clear to auscultation bilaterally AUSCULTATION: clear to auscultation bilaterally Cardio: COMMON NORMALS: regular rate and regular rhythm RATE: regular rate RHYTHM: regular rhythm Extremity: GENERAL: Yes normal exam except as noted RIGHT LOWER EXTREMITY: Yes lower leg OTHER: I saw patient about a month ago and I do not appreciate any clinical significant changes to his leg today apart from the knee joint itself appears less swollen and there is no redness/warmth here; he does have bilateral LE swelling R>L that he states is chronic; some mild redness bilaterally most likely inflammatory/lymphedema changes; no calf pain; no palpable cords noted; NV intact Neuro: COMMON NORMALS: patient oriented x3 SENSORIUM/ORIENTATION: Yes alert Course Vital Signs: Vital signs: Vital Signs Temperature 97.6 F 05/26/21 12:23 Pulse Rate 67 05/26/21 12:23 Respiratory Rate 16 05/26/21 12:23 Blood Pressure 120/69 05/26/21 12:23 Pulse Oximetry 97 05/26/21 12:23 MDM - Extremity (Nontraumatic) Medical Decision Making I have no concerns for any form of infection at this time. Ultrasound was negative for DVT. His vital signs are perfect. At this point recommend follow-up with his PCP and continue follow-up with orthopedics as scheduled. Imaging Data R LE venous US: Radiologist's impression: [address] [address] Ultrasound Report Signed Patient: Jaquan Alba Unit #: [id number] : 1945 Age/Sex: 75 / M ADM Date: 05/26/21 Loc: ER Room/Bed: Attending Dr: Ordering Provider/Ordering MD: Christopher Rizzo DO Date of Service: 05/26/21 Procedure(s): [place] [id number] Accession Number(s): [id number] Report Number: [id number] ?Jaquan Alba ?Age:? ? 75 ? ? Gender: ? ? M ?:? ? 1945 ?Exam Date: ? ? 05/26/2021 12:54 ?Ordering Phys: ? ? Christopher Rizzo ? DO ?Technologist:? ? ? BL ?Exam Location:? ? ? [facility] ?MRN:? ? [id number] ?Account Number: ? ? ? [id number] ?Indication:? ? ? c/o Painful, erythematous RLE two months s/p RIGHT ? total knee replacement. The anterior surface of ? the RIGHT knee is quite painful, especially ? localized at an area just superior to the patella. ? Hx RLE DVT 1997 following a timber felling injury. ?HISTORY: ?c/o Painful, erythematous RLE two months s/p RIGHT total knee ?replacement. The anterior surface of the RIGHT knee is quite ?painful and erythematous, especially localized at an area just ?superior to the patella. There is also generalized RIGHT knee ?and calf edema. Hx RLE DVT 1997 following a timber felling ?injury. ?PROCEDURES: ?Venous duplex imaging was performed in only the right lower ?extremity. The following venous structures were evaluated: ?common femoral vein, profunda vein, proximal portion of the ?greater saphenous vein, superficial femoral vein, and the ?popliteal vein. ?FINDINGS: ?Normal 2-D Doppler and augmentation and compressibility ?throughout the lower extremity venous structures.? Additional ?imaging through the proximal calf veins also reveals no ?thrombus.? Limited evaluation of the greater saphenous vein is ?patent with no thrombus.. ?Ill defined mixed echogenicity mass anterior knee in area of ?pain, 2.3 x 1.3? cm.? Probable postop? changes, no increased ?vascularity. ?CONCLUSIONS ?No DVT right lower extremity. ?Dr. Ivon Sepulveda DO ?(Electronically Signed) ?Final Date:? ? ? 26 May 2021 ? 13:39 S Discharge Plan Discharge Patient Disposition: Home Clinical Impression: Swelling of right lower extremity Condition: Stable Prescriptions: No Action gemfibrozil 600 mg tablet 600 mg PO QPM 0RF methocarbamol 750 mg tablet 750 mg PO TID PRN (Reason: Muscle Spasm) 0RF pregabalin 150 mg capsule 150 mg PO BEDTIME 0RF cetirizine 10 mg tablet 10 mg PO QPM 0RF allopurinol 300 mg tablet 300 mg PO QPM 0RF colchicine 0.6 mg tablet 0.6 mg PO DAILY PRN (Reason: gout flareup) 0RF cholecalciferol (vitamin D3) [Vitamin D3] 50 mcg (2,000 unit) capsule 50 mcg PO QPM 0RF amlodipine 5 mg tablet 5 mg PO QPM 0RF lisinopril 10 mg tablet 10 mg PO DAILY 0RF naproxen sodium [Aleve] 220 mg capsule 220 mg PO BID PRN (Reason: Pain) 0RF Hold Instructions: Resume on 05/01/21. Resume at completion of Celebrex albuterol sulfate [ProAir HFA] 90 mcg/actuation HFA aerosol inhaler 2 puff inhalation Q6H PRN (Reason: Shortness Of Breath) 0RF (DME) AFO to right See Rx Instructions .Route .MEDSUPPLY Qty: 1 0RF Rx Instructions: As directed by KAMILLE&O aspirin [Enteric Coated Aspirin] 81 mg tablet,delayed release (DR/EC) 81 mg PO QPM 0RF Hold Instructions: Resume on 05/01/21. (DME) lancets [Accu-Chek Softclix Lancets] Misc See Rx Instructions .ROUTE .MEDSUPPLY Qty: 50 0RF Rx Instructions: As directed (DME) lymphedema wrap See Rx Instructions .Route .MEDSUPPLY Qty: 1 0RF Rx Instructions: Wrap from foot to above knee due to swelling PRN celecoxib [Celebrex] 200 mg capsule 200 mg PO DAILY 0RF oxycodone 5 mg capsule 5 mg PO Q6H PRN (Reason: pain) 7 Days Qty: 40 0RF Rx Instructions: 1 tablet po Q4 hr PRN for pain meloxicam 15 mg Tablet 15 mg PO DAILY PRN (Reason: Pain) 0RF duloxetine 60 mg Capsule,Delayed Release(Dr/Ec) 60 mg PO DAILY 0RF Rx Instructions: [facility] unsure if he takes aspirin-sod bicarb-citric acid 324 mg Tablet, Effervescent 1 ea PO PRN PRN (Reason: indigestion) 0RF metformin 1,000 mg Tablet 1,000 mg PO QPM 0RF hydrochlorothiazide 25 mg Tablet 12.5 mg PO QAM 0RF mupirocin 2 % Ointment 1 applic TOPICAL BID PRN (Reason: Itching) 0RF Discharge Orders: Discharge ED (Routine); Ordered 05/26/21 Ordered By: Batool Romero Referrals: Hermilo Montenegro DO [Primary Care Provider] - Coding Level of Care Code ED Engineer Technician for Chg Fwd Exam Expanded Problem Focused Documented by User: Christopher Rizzo DO 05/26/21 14:51 HPI - Extremity Problem General: Chief complaint: Extremity Problem,Nontraumatic Stated complaint: RIGHT LEG PAIN Time Seen by Provider: 05/26/21 12:32 PFSH ED PFSH: Medical History COPD (chronic obstructive pulmonary disease) Diabetes 1.5, managed as type 1 Essential (primary) hypertension GERD (gastroesophageal reflux disease) Hyperlipemia Surgical History History of coronary artery stent placement Family History Mother Cancer Other Diabetes Denies family history of CAD (coronary artery disease) Stroke Social History Alcohol intake: never Lives independently: Yes Household members: spouse Marital status: Course Vital Signs: Vital signs: Vital Signs Temperature 97.6 F 05/26/21 12:23 Pulse Rate 67 05/26/21 12:23 Respiratory Rate 16 05/26/21 12:23 Blood Pressure 120/69 05/26/21 12:23 Pulse Oximetry 97 05/26/21 12:23 MDM - Extremity (Nontraumatic) Medical Decision Making I have no concerns for any form of infection at this time. Ultrasound was negative for DVT. His vital signs are perfect. At this point recommend follow-up with his PCP and continue follow-up with orthopedics as scheduled. Chart reviewed and patient discussed with midlevel. Agree with assessment and plan. Discharge Plan Discharge Patient Disposition: Home Clinical Impression: Swelling of right lower extremity Condition: Stable Prescriptions: No Action gemfibrozil 600 mg tablet 600 mg PO QPM 0RF methocarbamol 750 mg tablet 750 mg PO TID PRN (Reason: Muscle Spasm) 0RF pregabalin 150 mg capsule 150 mg PO BEDTIME 0RF cetirizine 10 mg tablet 10 mg PO QPM 0RF allopurinol 300 mg tablet 300 mg PO QPM 0RF colchicine 0.6 mg tablet 0.6 mg PO DAILY PRN (Reason: gout flareup) 0RF cholecalciferol (vitamin D3) [Vitamin D3] 50 mcg (2,000 unit) capsule 50 mcg PO QPM 0RF amlodipine 5 mg tablet 5 mg PO QPM 0RF lisinopril 10 mg tablet 10 mg PO DAILY 0RF naproxen sodium [Aleve] 220 mg capsule 220 mg PO BID PRN (Reason: Pain) 0RF Hold Instructions: Resume on 05/01/21. Resume at completion of Celebrex albuterol sulfate [ProAir HFA] 90 mcg/actuation HFA aerosol inhaler 2 puff inhalation Q6H PRN (Reason: Shortness Of Breath) 0RF (DME) AFO to right See Rx Instructions .Route .MEDSUPPLY Qty: 1 0RF Rx Instructions: As directed by KAMILLE&O aspirin [Enteric Coated Aspirin] 81 mg tablet,delayed release (DR/EC) 81 mg PO QPM 0RF Hold Instructions: Resume on 05/01/21. (DME) lancets [Accu-Chek Softclix Lancets] Misc See Rx Instructions .ROUTE .MEDSUPPLY Qty: 50 0RF Rx Instructions: As directed (DME) lymphedema wrap See Rx Instructions .Route .MEDSUPPLY Qty: 1 0RF Rx Instructions: Wrap from foot to above knee due to swelling PRN celecoxib [Celebrex] 200 mg capsule 200 mg PO DAILY 0RF oxycodone 5 mg capsule 5 mg PO Q6H PRN (Reason: pain) 7 Days Qty: 40 0RF Rx Instructions: 1 tablet po Q4 hr PRN for pain meloxicam 15 mg Tablet 15 mg PO DAILY PRN (Reason: Pain) 0RF duloxetine 60 mg Capsule,Delayed Release(Dr/Ec) 60 mg PO DAILY 0RF Rx Instructions: [facility] unsure if he takes aspirin-sod bicarb-citric acid 324 mg Tablet, Effervescent 1 ea PO PRN PRN (Reason: indigestion) 0RF metformin 1,000 mg Tablet 1,000 mg PO QPM 0RF hydrochlorothiazide 25 mg Tablet 12.5 mg PO QAM 0RF mupirocin 2 % Ointment 1 applic TOPICAL BID PRN (Reason: Itching) 0RF Discharge Orders: Discharge ED (Routine); Ordered 05/26/21 Ordered By: Batool Romero Referrals: Hermilo Montenegro DO [Primary Care Provider] - Coding Level of Care Code ED Engineer Technician for Chg Fwd Exam Expanded Problem Focused
== END 2021-05-26 14:42 | disposition home or self-care (01) ==
PROVIDERS: Emergency Provider Physician Assistant; PCP Emergency Medicine Emergency Medical Services
DX: M79.89 Other specified soft tissue disorders (principal); Z79.82 Long term (current) use of aspirin; Z79.84 Long term (current) use of oral hypoglycemic drugs; J44.9 Chronic obstructive pulmonary disease, unspecified; E13.9 Other specified diabetes mellitus without complications; I10 Essential (primary) hypertension; E78.5 Hyperlipidemia, unspecified
CPT/HCPCS: 93971; 99282

== ENCOUNTER 2021-06-10 10:36 | Outpatient (CLI) | payer OTHER, MEDICARE, SELFPAY ==
--- NOTE | 2021-06-10 16:20 | ONC FU_ITS ---
Dr. Tilley Patient Follow-Up Note Patient: Jaquan Alba Unit #: [id number]: 1945 Dicatated By: Yasmany Tilley M.D.Date of Visit:Jun 10, 2021 Onc Med Follow-up/Prog Note Chief Complaint: Rectal cancer. History of Present Illness: This is a 75-year-old man with well differentiated adenocarcinoma of the rectum, by clinical evaluation stage I (T1, N0, M0). On a screening colonoscopy in March 2012 he was found to have a small adenomatous polyp in the ascending colon. It was removed endoscopically. A follow-up surveillance colonoscopy on 09/04/2020 showed a 4 mm sessile polyp at the ileocecal valve which was removed endoscopically. Also noted was a nonobstructing rectal mass measuring 3.0 x 3.0 cm extending from 5 to 8 cm from the anal verge. Biopsies of the rectal mass showed tubular adenoma with focal high-grade dysplasia. The ICV polyp showed tubular adenoma. CT of the abdomen/pelvis on 09/10/2020 showed no acute process. There was no retroperitoneal or pelvic adenopathy noted. His baseline CEA level was 3.5 ng/mL. He was referred to Dr. Shiraz Benavides in [place]. On 10/22/2020 he underwent transanal excision of the rectal mass and rigid proctoscopy. The mass was able to be completely excised. Pathology showed well differentiated adenocarcinoma with invasion of the submucosa (pT1). There was only sparse uninvolved muscularis propria in the submitted sample. The peripheral margins were at least 3 mm from the tumor. The deep margin was measured at 1 mm. I had seen him initially on 11/05/2020. With stage I disease, there appeared to be no indication for additional treatment, but with the deep margin at 1 mm, he was recommended to continue close surveillance. He has multiple medical illnesses including hypertension, hyperlipidemia, diabetes (reportedly type I), coronary artery disease, COPD, and peripheral neuropathy. He has had chronic debility and chronic pain in his right leg following a crush injury to his right leg sometime around 1997. [facility] [place] INTERIM HISTORY: He underwent right total knee arthroplasty on 03/31/2021. The procedure was complicated by pain and swelling in the right leg. His venous Doppler studies on 04/29/2021 and on 05/26/2021 were negative for deep vein thrombosis. His follow-up laboratory studies done at the [facility] on 06/02/2021 included CBC showing hemoglobin 14.6 g, white blood cell count 6600, and platelet count 234,000. Comprehensive metabolic profile showed elevated BUN and creatinine at 26 and 1.30 mg/dL. The bilirubin and liver enzymes were normal. The CEA level had increased significantly, to 7.2 ng/mL. He is seen for a follow-up visit. His main complaint is that he has continued to have severe pain in the right knee and leg following his total knee arthroplasty in March. He also still has swelling in the right leg. He has very limited activity. He can walk about 100 feet with a cane before he gives out. He is spending most of his time in the recliner with his legs elevated. His appetite has not been good. He says that food tastes like cardboard. He has not had fever. He sometimes has sweating at night. He says that his mouth rotted out after surgery, but that is better now. He has not had sore throat or difficulty swallowing. He has some cough, which is nonproductive. He is short of breath with exertion, but he says his breathing is okay at rest. He does not complain of chest pain. He occasionally has nausea and he occasionally has acid reflux. He developed severe constipation on pain medication, and during that time he was having some red blood in the stool. His bowel function now is better, and his bladder function is okay. He also has been having some back pain, which is chronic. He does not complain of headache. He says he feels half drunk, but that he attributes to medication. He has neuropathy in his feet, and he says they feel . Medications: Aleve Tablet Oral b.i.d. PRN, Ana Cristina-Ashley Tablet, effervescent Oral PRN, Allopurinol (300 mg) Tablet Oral daily, amLODIPine Besylate (5 mg) Tablet Oral daily, Aspirin Low Dose Adult (81 mg) Tablet, chewable Oral daily, Cetirizine HCl (10 mg) Tablet Oral daily PRN, Cholecalciferol (50 mcg ) Tablet Oral daily, Furosemide Tablet Oral PRN, Gemfibrozil 2 (600 mg) Tablet Oral daily, Lisinopril 0.5 Tablet (of 2 mg) Oral daily, Lyrica (150 mg) Capsule Oral t.i.d. PRN, Meloxicam 1 Tablet (of 15 mg) Oral daily, metFORMIN HCl 1 Tablet (of 500 mg) Oral b.i.d., Methocarbamol (750 mg) Tablet Oral t.i.d. PRN, oxyCODONE HCl (5 mg) Tablet Oral Take as Directed, ProAir HFA Aerosol, solution Inhalation PRN, Xlear Sinus Care [place] Solution Nasal b.i.d. PRN Allergies: Zocor Vital Signs: Performed on Jun 10, 2021 10:53 Height - 70.00 in Weight - 277.6 lbs (LOW) BSA - 2.40 sq.m BMI - 39.83 (HIGH) Temperature - 96.8 F (LOW) Pulse - 85 /min Respiration - 20 /min BP - 130/70 mm(hg) O2 Sat - 98 % Pain - 5 Fatigue - 8 Physical Examination: Constitutional - He appears somewhat weak generally. He has poor mobility, Eyes - Sclerae nonicteric. Conjunctivae clear, ENMT - No lesions noted in the oral cavity, Hematologic/Lymphatic - No cervical, clavicular, or axillary adenopathy, Respiratory - Lungs sound clear with diminished air movement bilaterally, Cardiovascular - Heart rhythm is irregular. There is no murmur, gallop, or rub noted, Abdomen - Mildly distended. Liver and spleen are not enlarged. There is no abdominal mass or ascites noted and there is no inguinal adenopathy, Extremities - There is increased swelling of the right leg with the right calf circumference measuring 50 cm compared to 43 cm on the left, Neurologic - He does not appear to have any focal neurologic deficit. Problem List: 1. Well differentiated adenocarcinoma of the rectum, by clinical evaluation stage I (pT1, N0, M0). 2. Hypertension. 3. Hyperlipidemia. 4. Diabetes, reportedly type I. 5. Coronary artery disease with previous angioplasty/stent placement. 6. COPD. 7. Peripheral neuropathy. 8. History of gout. 9. History of crush injury to the right leg. Problems Addressed with this Encounter and Plan: Patient with well differentiated adenocarcinoma of the rectum, by clinical evaluation stage I (pT1, N0, M0). The tumor was completely removed by transanal excision on 10/22/2020. Pathology showed invasion of the submucosa. The specimen included only sparse uninvolved muscularis propria. Peripheral margins were at least 3 mm. The deep margin was measured at 1 mm. With the tumor completely excised, there appeared to be no indicaton for further treatment, but close surveillance was recommended. He unfortunately has developed persistent pain and swelling in the right leg following right total knee arthroplasty in March. There has been a significant increase in his CEA level, to 7.2 ng/mL. While this is nonspecific, it is a significant enough change to warrant a restaging evaluation. He has an appointment in [place] next week for an MRI of the pelvis, and at that time he also will be scheduled for colonoscopy. Depending on the findings, he will also likely require surveillance CT scans of the chest, abdomen, and pelvis. He will have further evaluation as indicated. Signed By: Yasmany Tilley M.D. <<Signature on File>>
== END 2021-06-10 10:37 | disposition home or self-care (01) ==
PROVIDERS: PCP Emergency Medicine Emergency Medical Services; Visit Provider Internal Medicine Medical Oncology
DX: Z85.048 Personal history of other malignant neoplasm of rectum, rectosigmoid junction, and anus (principal); I10 Essential (primary) hypertension; E78.5 Hyperlipidemia, unspecified; E10.9 Type 1 diabetes mellitus without complications; I25.10 Atherosclerotic heart disease of native coronary artery without angina pectoris; J44.9 Chronic obstructive pulmonary disease, unspecified; Z79.899 Other long term (current) drug therapy
CPT/HCPCS: 99214

== ENCOUNTER → 2021-07-13 09:26 | Outpatient (BNVA) | payer OTHER, SELFPAY | PROVIDERS: PCP Emergency Medicine Emergency Medical Services; Visit Provider Specialist | DX: Z47.1 Aftercare following joint replacement surgery (principal); Z96.651 Presence of right artificial knee joint | CPT/HCPCS: 73560; 73565 ==

== ENCOUNTER 2021-07-24 06:00 | Outpatient (RCR) | payer OTHER, SELFPAY | END 2021-08-22 23:59 | disposition home or self-care (01) | LOC: APT 06:00 | PROVIDERS: PCP Emergency Medicine Emergency Medical Services; Referring Provider Specialist; Visit Provider Specialist | DX: Z47.1 Aftercare following joint replacement surgery (principal); Z96.651 Presence of right artificial knee joint | CPT/HCPCS: 97110; 97140; 97163 ==

== ENCOUNTER → 2021-08-04 08:54 | Outpatient (BNVA) | payer OTHER, SELFPAY | PROVIDERS: PCP Emergency Medicine Emergency Medical Services; Visit Provider Podiatrist Foot & Ankle Surgery | DX: S86.011S Strain of right Achilles tendon, sequela (principal); X58.XXXS Exposure to other specified factors, sequela; E13.9 Other specified diabetes mellitus without complications; G60.9 Hereditary and idiopathic neuropathy, unspecified; M20.41 Other hammer toe(s) (acquired), right foot; M20.31 Hallux varus (acquired), right foot | CPT/HCPCS: 99213; 99214 ==

== ENCOUNTER → 2021-08-10 10:52 | Outpatient (BNVA) | payer OTHER, SELFPAY | PROVIDERS: PCP Emergency Medicine Emergency Medical Services; Visit Provider Specialist | DX: F17.210 Nicotine dependence, cigarettes, uncomplicated (principal); Z96.651 Presence of right artificial knee joint | CPT/HCPCS: 73560; 73565; 99213 ==

== ENCOUNTER 2021-08-17 12:33 | Outpatient (CLI) | payer OTHER, SELFPAY ==
--- NOTE | 2021-08-17 12:43 | CT_ITS ---
WS: [id number] CT CHEST, ABDOMEN, AND PELVIS TECHNIQUE: Contrast-enhanced CT of the chest, abdomen, and pelvis with coronal and sagittal reformatt ed images. CLINICAL INFORMATION: RESTAGING RECTAL CANCER COMPARISON: September 10, 2020 DLP: 1788.[address] scans at [facility] use at least one of these dose optimization techniques: automated e xposure control; mA and/or kV adjustment per patient size (includes targeted exams where dose is matc hed to clinical indication); or iterative reconstruction. CT CHEST: Lungs are well aerated. No acute pulmonary infiltrates. No focal pneumonia or pleural fluid. A few ca lcified granulomas. Normal caliber thoracic aorta. Mild aortic calcification. Proximal main pulmonary arteries are normal. No mediastinal or hilar lymphadenopathy. No axillary lymphadenopathy. Coronary calcification. Hypertrophic changes thoracic spine. Tiny noncalcified nodule in the RIGHT middle lobe anteriorly ruma suring [address] ABDOMEN AND PELVIS: Hepatomegaly. Diffuse fatty infiltration liver. Multiple low-attenuation lesions in the liver the lar gest in the LEFT hepatic lobe hepatic cysts unchanged since September 10, 2020. Normal portal vein and sple markus vein. Normal GE junction. Fatty atrophy of the pancreas. Normal spleen. Adrenal glands are normal . Normal renal parenchymal enhancement. No hydronephrosis. Bilateral renal cysts. Sigmoid diverticulosis. No evidence of acute diverticulitis. Normal caliber abdominal aorta. Vascular calcification. Heterogeneous enhancing enlarged prostate measuring 4.8 cm. Recommend correlation PSA . Thickening of the seminal vesicles bilaterally. Normal perirectal fat. Mild slightly nodular rectal wall thickening likely due to prior treatment-related changes. Recommend correlation with clinical h istory. Slight anterolisthesis L3 on L4. Disc space narrowing throughout the lumbar spine with vacuum disc ph enomenon. No pelvic or inguinal lymphadenopathy. Incidental fat-containing inguinal hernias. Ryanblad jim is contracted. CT/CT chest abd pel w con* IMPRESSION: 1. No evidence of metastatic disease in the chest abdomen or pelvis. 2. Enlarged heterogeneously enhancing nodular prostate with thickening of the seminal vesicles. Recommend correlation PSA. Findings suspicious for neoplasia/ hyperplasia. This is progressed since 2020. 3. No adenopathy in the chest abdomen or pelvis. 4. Stable hepatic cysts. 5. 4 mm noncalcified nodule RIGHT middle lobe. Recommend 6 month follow-up. 6. Mild slightly nodular rectal wall thickening likely due to prior treatment- related changes. This is similar to 202. Recommend correlation with clinical h istory and sigmoidoscopy if clinical concern for recurrence.
[2021-08-17] MEDS: iohexol 300 mg/mL 50 mL Btl PO (12:59)
[2021-08-17 14:20] LABS: Blood Urea Nitrogen 27 mg/dL (8-23)
[2021-08-17] MEDS: iohexol 300 mg/mL 100 mL Btl IV (14:21)
== END 2021-08-17 12:34 | disposition home or self-care (01) ==
LOC: RAD 12:34
PROVIDERS: PCP Emergency Medicine Emergency Medical Services; Visit Provider Internal Medicine Medical Oncology
DX: C20 Malignant neoplasm of rectum (principal)
CPT/HCPCS: 71260; 74177; 82565; 84520

== ENCOUNTER → 2021-08-20 09:31 | Outpatient (BNVA) | payer OTHER, SELFPAY | PROVIDERS: PCP Emergency Medicine Emergency Medical Services; Visit Provider Internal Medicine Medical Oncology | DX: C20 Malignant neoplasm of rectum (principal) | CPT/HCPCS: 84153 ==

== ENCOUNTER 2021-08-23 06:00 | Outpatient (RCR) | payer OTHER, SELFPAY | END 2021-09-22 23:59 | disposition home or self-care (01) | LOC: APT 06:00 | PROVIDERS: PCP Emergency Medicine Emergency Medical Services; Referring Provider Specialist; Visit Provider Specialist | DX: Z96.651 Presence of right artificial knee joint (principal) | CPT/HCPCS: 97110 ==

== ENCOUNTER 2021-09-23 06:00 | Outpatient (RCR) | payer OTHER, SELFPAY | END 2021-09-28 23:59 | disposition home or self-care (01) | LOC: APT 06:00 | PROVIDERS: PCP Emergency Medicine Emergency Medical Services; Referring Provider Specialist; Visit Provider Specialist | DX: Z47.1 Aftercare following joint replacement surgery (principal); Z96.651 Presence of right artificial knee joint | CPT/HCPCS: 97110 ==

== ENCOUNTER → 2022-04-27 10:12 | Outpatient (BNVA) | payer OTHER, SELFPAY | PROVIDERS: PCP Emergency Medicine Emergency Medical Services; Visit Provider Podiatrist Foot & Ankle Surgery | DX: E13.9 Other specified diabetes mellitus without complications (principal); L60.3 Nail dystrophy; S86.011S Strain of right Achilles tendon, sequela; G60.9 Hereditary and idiopathic neuropathy, unspecified; M20.41 Other hammer toe(s) (acquired), right foot; M20.31 Hallux varus (acquired), right foot; X58.XXXS Exposure to other specified factors, sequela; Z79.84 Long term (current) use of oral hypoglycemic drugs | CPT/HCPCS: 11721; 99214 ==

== ENCOUNTER → 2022-12-22 11:57 | Outpatient (BNVA) | payer OTHER, SELFPAY | PROVIDERS: PCP Emergency Medicine Emergency Medical Services; Visit Provider Internal Medicine Cardiovascular Disease | DX: R07.9 Chest pain, unspecified (principal); R06.02 Shortness of breath; I10 Essential (primary) hypertension; E13.9 Other specified diabetes mellitus without complications; E78.5 Hyperlipidemia, unspecified; F17.200 Nicotine dependence, unspecified, uncomplicated; I49.3 Ventricular premature depolarization | CPT/HCPCS: 93005; 99205 ==

== ENCOUNTER 2022-12-30 07:41 | Outpatient (CLI) | payer OTHER, SELFPAY ==
--- NOTE | 2022-12-30 07:53 | FL_ITS ---
WS: [id number] Modified barium swallow, 12/30/2022 Clinical Data: Other dysphagia Comparison: None. Fluoroscopy time: 1min [id number] # of spot films: 0 Findings: The patient initiated the oral phase normally with mild premature spillage. There is no penetration o r aspiration. The pharyngeal function was normal and the barium cleared promptly. The patient ingeste d the barium tablet which passed normally through the esophagus into the stomach. Impression: Negative modified barium swallow.
== END 2022-12-30 07:42 | disposition home or self-care (01) ==
PROVIDERS: PCP Emergency Medicine Emergency Medical Services; Visit Provider Emergency Medicine Emergency Medical Services
DX: R13.19 Other dysphagia (principal)
CPT/HCPCS: 74230; 92611

== ENCOUNTER 2023-01-03 07:47 | Outpatient (CLI) | payer OTHER, SELFPAY ==
--- NOTE | 2023-01-03 08:30 | USCV_ITS ---
Jaquan Alba Age: 77 Gender: M : 1945 Exam Date: 01/03/2023 08:23 Ordering Phys: Steven Handley MD ([email or web address]) Technologist: Exam Location: [facility] [place] Indication: VA, SOB, chest tightness BP: 130 / 60 HR: 66 Rhythm: Other Technical Quality: Technically difficult study MEASUREMENTS (Male / Female) Normal Values 2D ECHO LV Diastolic Diameter PLAX 5.0 cm 4.2 - 5.9 / 3.9 - 5.3 cm LV Systolic Diameter PLAX 3.7 cm IVS Diastolic Thickness 1.4 cm 0.6 - 1.0 / 0.6 - 0.9 cm IVS Systolic Thickness 1.9 cm LVPW Diastolic Thickness 1.0 cm 0.6 - 1.0 / 0.6 - 0.9 cm LVPW Systolic Thickness 2.1 cm LVOT Diameter 2.1 cm LV Ejection Fraction 2D Teich 21.7 % LV Ejection Fraction MOD 2C 50.1 % LV Ejection Fraction 2C AL 50.4 % LA Diameter 3.3 cm LA Width 2.2 cm LA Height 4.3 cm RA Width 3.1 cm IVC Diameter 2.1 cm M-MODE Aortic Annulus Diameter 3.4 cm LA Ao Ratio MM 1.0 MV E Point Septal Separation 1.3 cm DOPPLER AV Peak Velocity 98.0 cm/s LVOT Peak Velocity 80.0 cm/s AV Area Cont Eq vti 3.3 cm squared AV Area Cont Eq pk 2.9 cm squared MV Peak Velocity 108.0 cm/s MV Area PHT 3.9 cm squared Mitral E to A Ratio 0.4 MV E' Velocity 26.0 cm/s Mitral E to MV E' Ratio 7.5 Mitral E to LV E' Lateral Ratio 6.5 Mitral E to LV E' Septal Ratio 8.8 TR Peak Velocity 53.0 cm/s TR Peak Gradient 1.1 mmHg Right Atrial Pressure 5.0 mmHg Pulmonary Artery Systolic Pressu 6.1 mmHg PV Peak Velocity 95.0 cm/s RV Acceleration Time 0.1 s RV Ejection Time 0.3 s RV AcT/ET 0.5 FINDINGS Left Ventricle The left-ventricular patient with normal size and ejection fraction. Right Ventricle Possibly normal RV size and ejection fraction Right Atrium Possibly of normal size Left Atrium Possibly of normal Mitral Valve Valve morphology could not be delineated well Aortic Valve Thickened aortic valve. Tricuspid Valve The valve morphology could not be delineated well Pulmonic Valve Pulmonic valve not well visualized. Pericardium Trivial pericardial effusion. Aorta Normal aortic annulus size. IVC Inferior vena cava not visualized. CONCLUSIONS The left-ventricular patient with normal size and ejection fraction. Thickened aortic valve. Possibly normal chamber sizes Technically difficult study because of poor ultrasonic windows. Contrast echocardiogram([employer]) also was of suboptimal quality Technically difficult study because of the poor ultrasonic window. Dr Steven Handley MD FAC (Electronically Signed) Final Date: 03 January 2023 10:10 S
[2023-01-03] MEDS: perflutren protein-a microsphr 0.22 mg/mL SDV 3 mL IV (09:17)
== END 2023-01-03 07:48 | disposition home or self-care (01) ==
PROVIDERS: PCP Emergency Medicine Emergency Medical Services; Visit Provider Internal Medicine Cardiovascular Disease
DX: R06.09 Other forms of dyspnea (principal); R07.89 Other chest pain; I35.8 Other nonrheumatic aortic valve disorders
CPT/HCPCS: C8929; Q9956

== ENCOUNTER 2023-01-13 09:53 | Outpatient (CLI) | payer OTHER, SELFPAY ==
--- NOTE | 2023-01-13 | ECG_ITS ---
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 Interpretive Statements NAME OF STUDY: LEXISCAN SESTAMIBI STRESS TEST INDICATION: Chest tightness, PROCEDURE: At the baseline, the EKG revealed sinus rhythm with frequent PVCs. Poor R wave progression. Low voltage complexes in the precordial leads. The baseline heart was 77 bpm with a blood pressue of 126/81 mm of Hg Lexiscan was infused over a period of 20 seconds. A total of 0.4 milligrams of Lexiscan was infused. The stress phase was continued for a total of 5 minutes. Heart rate at the end of the stress phase was 86 bpm with a blood pressure 120/79 mm of Hg. The EKG at the peak infusion revealed no significant changes. Sestamibi was injected 20 seconds after the Lexiscan infusion. Heart rate at the end of the recovery phase was 84 bpm with a blood pressure of 113/79 mm of Hg. CONCLUSION: 1. No significant EKG changes with the LexiScan infusion 2. No LexiScan induced chest pain or cardiac arrhythmia 3. Normal blood pressure and heart rate response 4. Sestamibi/sestamibi perfusion scan pending; see separate report. Electronically Signed On 01-14-2023 19:58:51 CDT by Steven Handley M.D. [id number]
[2023-01-13 10:08] VITALS: BMI 39.4
--- NOTE | 2023-01-13 10:09 | NMCV_ITS ---
NM adrianna perf SPECT r/s* [id number] Jaquan Alba Age: 77 Gender: M : 1945 Exam Date: 01/13/2023 10:44 Ordering Phys: Steven Handley MD ([email or web address]) Technologist: PAYTON Lawton Exam Location: [facility] Indications: CORONARY ANGIOPLASTY STATUS STRESS TEST Please see separate stress test report in [facility] for full findings IMAGE PROTOCOL Rest/Stress 1 Lexiscan Day Radiopharmaceutical Dose (mCi) Administration Site Administered by Rest: Tc-99m 10.9 IV PAYTON Lynne Sestamibi Stress:Tc-99m 33.0 IV PAYTON Lynne Sestamibi Rest: 13-Jan-2023 60 Discovery 630 Stress: 13-Jan-2023 30 Discovery 630 0.4mg Lexiscan. Supine position only as patient was unable to lay prone. SPECT RESULTS Technical Quality: Excellent Raw Data Analysis: Normal Image Corrections: No attenuation or motion correction applied Summed Stress Score: 14 Summed Rest Score: 8 Summed Difference Score: 6 PERFUSION FINDINGS Moderate area of moderate to severely decreased tracer uptake was noted in the basal, mid and apical inferior; basal and mid inferolateral, apical lateral and LV apex. Small areas of reversible defects were noted in the lateral wall and reversibility was noted in the lateral wall region. A very small area of reversibility was noted in the inferior wall region. FUNCTIONAL RESULTS (calculated via Gated SPECT) Stress Image LV EF (%): 54 Stress EDV (mL):128 TID: 0.88 Stress ESV (mL):59 FUNCTIONAL FINDINGS: Segmental wall motion analysis revealing no gross wall motion abnormalities. IMPRESSIONS 1. Myocardial perfusion imaging revealing moderate area of moderate to severely decreased aseptic in the inferior, inferolateral and apical regions with some reversibility in the inferolateral and inferior regions suggesting myocardial scarring in the distribution of the left circumflex artery and right coronary artery with areas of possible idalia-infarction ischemia mostly in the circumflex territory with some involvement of the right coronary artery. 2. Normal ejection fraction of 54%. 3. LV wall motion analysis revealing no gross wall motion abnormalities. 4. Mildly dilated LV cavity with an end-systolic volume of 59 normal Compared to the study from 10/09/2020, there seems to be more ischemia with the current study Dr Steven Handley MD FACC (Electronically Signed) Final Date: 13 January 2023 14:10 S
[2023-01-13] MEDS: regadenoson 0.4 Mg/5 ml Syringe IVP (11:21)
[2023-01-13 11:30] VITALS: BP 113/79; PULSE 88
== END 2023-01-13 09:54 | disposition home or self-care (01) ==
LOC: CDL 09:54
PROVIDERS: PCP Emergency Medicine Emergency Medical Services; Visit Provider Internal Medicine Cardiovascular Disease
DX: Z98.61 Coronary angioplasty status (principal)
CPT/HCPCS: 36415; 78452; 93017; 96374; A9500; J2785

== ENCOUNTER → 2023-01-20 14:00 | Outpatient (BNVA) | payer OTHER, SELFPAY | PROVIDERS: PCP Emergency Medicine Emergency Medical Services; Referring Provider Emergency Medicine Emergency Medical Services; Visit Provider Surgery | DX: R13.10 Dysphagia, unspecified (principal) | CPT/HCPCS: 99203; 99214 ==

== ENCOUNTER → 2023-02-08 14:23 | Outpatient (BNVA) | payer OTHER, SELFPAY | PROVIDERS: PCP Emergency Medicine Emergency Medical Services; Visit Provider Internal Medicine Cardiovascular Disease | DX: R94.39 Abnormal result of other cardiovascular function study (principal); I25.118 Atherosclerotic heart disease of native coronary artery with other forms of angina pectoris; R06.02 Shortness of breath; I48.91 Unspecified atrial fibrillation; Z79.01 Long term (current) use of anticoagulants; E78.5 Hyperlipidemia, unspecified; E13.9 Other specified diabetes mellitus without complications; I10 Essential (primary) hypertension; F17.210 Nicotine dependence, cigarettes, uncomplicated; Z79.84 Long term (current) use of oral hypoglycemic drugs | CPT/HCPCS: 36415; 80048; 83880; 99215 ==

== ENCOUNTER 2023-02-16 11:24 | Observation (INO) | payer OTHER, SELFPAY ==
--- NOTE | 2023-02-15 09:19 | SUR.PREOP ---
Pre-op BMP reported to Dr. Ames. Creatinine 1.5. Orders received for pre-cath hydration for 02/16/2023.
[2023-02-15 10:41] LABS: Basophils # 0.1 10^3/uL (0.0-0.1); Basophils % 1.6 %; Eosinophils # 0.5 10^3/uL (0.0-0.8); Eosinophils % 6.8 %; Lymphocytes # 1.7 10^3/uL (0.8-4.8); Lymphocytes % 23.1 %; Mean Corpuscular HGB Conc 33.1 g/dL (30-55); Mean Corpuscular Hemoglobin 31.2 pg (27-33); Mean Corpuscular Volume 94.1 fl (82-101); Mean Platelet Volume 11.3 fL (7.4-10.4); Monocytes # 0.4 10^3/uL (0.2-0.9); Monocytes % 5.9 %; Neutrophils # 4.55 10^3/uL (1.8-7.7); Neutrophils % 62.2 %; Nucleated Red Blood Cells % 0 %; Platelet Count 195 10^3/cmm (157-399); Red Blood Count 4.78 10^6/uL (3.85-5.65); Red Cell Distribution Width 14.2 % (12.1-15.1); White Blood Count 7.32 10^3/uL (3.29-11.43)
[2023-02-15 11:02] LABS: INR 0.96 (0.8-1.2)
[2023-02-15 11:16] LABS: Anion Gap 14.1 (5-19); Blood Urea Nitrogen 27 mg/dL (8-23); Calcium 9.8 mg/dL (8.5-10.5); Carbon Dioxide 31 mmol/L (22-29); Chloride 94 mmol/L (98-107); Glucose 147 mg/dL (65-115); NT Pro B Type Natriuretic Pept 257 pg/mL (0-450); Osmolality Calculated 288 mOsm/kg (285-295); Potassium 4.1 mmol/L (3.5-5.1); Sodium 135 mmol/L (136-145)
[2023-02-16] VITALS (7 sets, daily range): BP systolic 102–123; BP diastolic 63–69; PULSE 75–88; RESP 14–22; TEMP 36.4–37; O2SAT 91–96; BMI 39.4
[2023-02-16] MEDS: sodium chloride 0.9% 1,000 ML 100 ML IV ×4 (06:10→21:11)
[2023-02-16] MEDS: diphenhydrAMINE 50 mg Capsule PO (06:59)
[2023-02-16] MEDS: aspirin 325 mg Tablet PO (06:59)
--- NOTE | 2023-02-16 07:00 | XACV_ITS ---
Exam Room: 2 Ht: 178 cm Wt: 125 kg BSA: 2.54 m2 Gender: Male : 1945 Any Known Allergies: Other Exam Priority: Routine Procedure(s): Procedure Description: Diagnostic procedure Procedure Description: PCI procedure Procedure Description: Left Heart Catheterization Procedure Description: Right Heart Catheterization Procedure Description: O2 saturation Procedure Description: Drug Eluting Coronary Stent Procedure Description: PTCA Procedure Description: Miscellaneous Procedure Description: ACT Procedure Description: Coronary Angiography Ender SARABIA; Diagnostic Cath Status: Elective Diagnostic Findings * INDICATION: Dyspnea on exertion/abnormal stress test. * Circumflex has mild luminal irregularities. There is an occluded OM 1 noted with collateral filling from ramus. * Large sized ramus artery is patent. * Left Anterior Descending has no significant disease. * 1st Diagonal: moderate 60% stenosis, HYUN: 3 flow. * Right heart cath findings: Normal right sided cardiac pressure. Wedge pressure is mildly elevated at 15. Mild pulmonary hypertension with mean PA pressure of 26mmHg and peak pressure of 44mmHg. . * Left Main has no disease. * Proximal Right Coronary Artery to Mid Right Coronary Artery: severe 90% stenosis, HYUN: 3 flow. * Coronary angiography shows right dominance. PCI Status: Elective PCI Indication: Other Interventional Findings * Procedure detail: We engaged RCA with JR4 guide catheter. IV heparin was administered to maintain anticoagulation. 0.014 run-through guidewire was used to cross the stenosis and was put in distal vessel. We predilated the stenosis with 3.0 x 20 mm semicompliant balloon. This was followed by placement of 3.0 x 38 mm resolute [place] drug-eluting stent from proximal to mid RCA. We postdilated the stent with 3.5 x 8 mm NC balloon. At this time final angiogram was performed that showed excellent stent expansion, HYUN-3 flow and no residual stenosis. Guide catheter and guidewire were removed. 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 * Proximal Right Coronary Artery to Mid Right Coronary Artery: 90% stenosis treated with a AB TREK 3.00X20 RX BALLOON, MDKamran R JASPREET 3.0X38 IBAN, MDT NC EUPHORA RX 3.00X33DO BALLOON, and MDT NC EUPHORA RX [id number] BALLOON. 0% residual stenosis, HYUN: 3 flow. * Mid Right Coronary Artery: 70% stenosis treated with a AB TREK 3.00X20 RX BALLOON. 0% residual stenosis, HYUN: 3 flow. Conclusions 1. Severe proximal to mid RCA stenosis s/p successful revascularization with 1 stent. 2. Mildly elevated left sided cardiac pressure. Mild pulmonary hypertension. 3. Proximal Right Coronary Artery to Mid Right Coronary Artery was treated with a Balloon, Drug Eluting Stent, Balloon, and Balloon. Recommendations * Dual antiplatelet therapy with aspirin and plavix for atleast 1 year. * High intensity statin therapy. * Outpatient cardiology follow up in 4 weeks. Interventional RX Recommendation: PCI w/o planned CABG Diagnostic RX Recommendation: PCI w/o planned CABG Anticoagulation: Heparin Pressures Phase:Rest AO : 103 / 60 ( 75 ) @ 11:26:00 AM 111 / 41 ( 71 ) @ 11:32:00 AM 101 / 58 ( 79 ) @ 11:51:00 AM RV : 46 / 5 / 13 @ 11:20:00 AM PA : 44 / 17 ( 26 ) @ 11:18:00 AM RA : a wave = 12 v wave = 9 mean = 8 @ 11:20:00 AM PCW : a wave = 17 v wave = 16 mean = 15 @ 11:18:00 AM O2 Content Phase:Rest PA : O2 Content O2: 71.4 @ 11:32:00 AM Saturations Phase:Rest AO : 92 @ 11::00 AM PA : 71 @ :32:00 AM Cardiac Output Phase:Rest Maryam : 7 @ ::47 AM Maryam Cardiac Index: 3 @ ::47 AM Flow Phase:Rest Qp : 7 @ ::47 AM Qs : 7 @ ::47 AM Clinical Evaluation EBL: 5mL-10mL Procedural Details Procedure Consent Obtained. Admit Source: Out Patient. Pre-Procedure Time Out. Identified patient by full name and date of as verbalized by the patient/guarantor. Does the consent match the physician's order: Yes. Accurate & Complete Informed Consent: Yes. Inpatient/Outpatient History & Physical on Chart: Yes. If H&P is completed, is and addenduem needed: No; If yes, is the addendum complete: N/A. Visualize and Verify Site with Patient/Guarantor: N/A. Relevant Radiology Images available: Yes. The risks, benefits, and alternatives of sedation and/or procedure were discussed by physician. The patient agrees to continue. Procedure started. [facility] Clinical Fraility Score: 4: Vulnerable. 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 Chest Pain Symptom Assessment: Atypical. Correct patient, site and procedure confirmed by cath team. Current diagnosis: Stable angina, Abnormal stress test, dyspnea on exertion. PERRLA. 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 Lungs clear x 5 lobes. IV Site on Arrival: 20 gauge in the right anticubital. IV Site on Arrival: 20 gauge in the left anticubital. IV Fluids: 0.9% NaCl at 75ml/hr. 450 mL infused prior to r and d lab technician. Pre Procedural Pulses: bilateral radial was 3+. Pre Procedural Pulses: bilateral posterior tibial was Doppled. Pre Procedural Pulses: bilateral dorsalis pedis was Doppled. right radial was prepped with chloroprep then draped in the usual sterile fashion. right brachial was prepped with chloroprep then draped in the usual sterile fashion. right groin was prepped with chloroprep then draped in the usual sterile fashion. Physician notified. Baseline sample Acquired. HR: 81 BPM. Physician arrived. Physician scrubbed in. Immediate Pre-Procedure Time Out. Correct Patient: Yes; Correct Procedure: Yes; Correct Site: Yes; Correct Patient Position: Yes; Correct Supplies: Yes; Dried Flammable Prep: Yes; Blood Products Available: No;. Lidocaine 1% infiltrated to the right brachial. [place]-Jesyon MON catheter inserted. Pressure measurements obtained. Oximetry samples were obtained. Normal venous range: 60-85%. Normal arterial range: 95-100%. All saturations drawn with patient on room air. Warba-Jeyson out. Lidocaine 1% infiltrated to the right radial. Arterial access obtained. Arterial saturation drawn. Oxygen started at 2liters/min via nasal canula. A 5 bhutanese TIG catheter in over wire. Multiple views taken of left coronary artery. Catheter redirected to the RCA. Multiple views taken of right coronary artery. Catheter removed over the exchange wire. 6 bhutanese JR 4 guide catheter was inserted over the wire. Runthrough guidewire was advanced through the guide catheter to lesion in the prox RCA. Guidewire advanced across lesion. Balloon inserted to lesion in the prox RCA. Inflation number : 1 A AB TREK 3.00X20 RX BALLOON was prepped and advanced across the Mid RCA , then inflated to 8 NORMA for 0:17 seconds. Inflation number: 1 The AB TREK 3.00X20 RX BALLOON was reinflated across the Prox RCA, to 8 NORMA for 0:11 seconds. Balloon out. Stent inserted to lesion in the prox RCA. Inflation Number : 2 A RICHARD Chen JASPREET 3.0X38 IBAN -Lot Number# [id number] EXP 08-28-2025 was prepped and advanced across the Prox RCA. The stent was deployed at 12 NORMA for 0:21 seconds. Stent Balloon out. Balloon inserted to lesion in the prox RCA. Inflation number : 3 A RICHARD MARTIN EUPHORA RX [id number] BALLOON was prepped and advanced across the Prox RCA , then inflated to 16 NORMA for 0:17 seconds. Balloon out. Balloon inserted to lesion in the prox RCA. Inflation number : 4 A RICHARD MARTIN EUPHORA RX [id number] BALLOON was prepped and advanced across the Prox RCA , then inflated to 12 NORMA for 0:16 seconds. Balloon out. Results checked. Wire out. Results checked. ACT drawn. Results - out of range high results. Therapeutic limits - pre-heparin administration 90-150 seconds and monitoring heparin during a vascular procedure >250 seconds. Guide catheter out. A TR Band was successful obtaining hemostatsis at the Right Radial artery insertion site. A Manual Compression was successful obtaining hemostatsis at the Right Brachial Vein insertion site. Post Procedure: Pulses reassessed and unchanged. PERRLA. 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 No VTE prophylaxis required. Medication's Wasted: Nitro = 49.8 mg. Medication's Wasted: Heparin = 4000 units. Medication's Wasted: Other = Fentanyl 50mcg. Total IV fluids: 66 mL. Post-op diagnosis: Severe proximal to mid RCA stenosis, status post PCI placement of 1 stent. Complications: None. Estimated blood loss: 5mL-10mL. Responsiveness - Normal response to verbal stimuli; alert and oriented, PERRLA. Airway - Unaffected, no intervention required; spontaneous ventilation. Circulation: W/N/L, pulses unchanged. Nausea/Vomiting: No. Procedure completed. Patient transferred by stretcher to CPRU. Vital chart was stopped. Access Site Site: Right Brachial Vein Sheath Size: 6 Fr Hemostasis Method: Manual Compression Hemostasis Success: Successful Site: Right Radial artery Sheath Size: 6 Fr Hemostasis Method: TR Band Hemostasis Success: Successful Procedure Medications Start: 10:06 AM Stop: 10:06 AM Medication: Versed Amount: 1 mg Route: I.V. Start: 10:06 AM Stop: 10:06 AM Medication: Fentanyl Amount: 25 mcg Route: I.V. Start: 10:23 AM Stop: 10:23 AM Medication: Nitrogylcerin Amount: 200 mcg Route: I.A. Start: 10:25 AM Stop: 10:25 AM Medication: Heparin Amount: 5000 units Route: I.V. Start: 10:29 AM Stop: 10:29 AM Medication: Versed Amount: 1 mg Route: I.V. Start: 10:31 AM Stop: 10:31 AM Medication: Heparin Amount: 6000 units Route: I.V. Start: 10:43 AM Stop: 10:43 AM Medication: Heparin Amount: 1000 units Route: I.V. Start: 10:48 AM Stop: 10:48 AM Medication: Fentanyl Amount: 25 mcg Route: I.V. Start: 10:54 AM Stop: 10:54 AM Medication: Plavix Amount: 600 mg Route: P.O. I, the attending physician, have reviewed and verified all procedure medications. Yes, all medications given per verbal order History/Risk Factors Hypertension: Yes Dyslipidemia: Yes Peripheral Arterial Disease (PAD): No Myocardial Infarction (NH): Yes Obesity: Yes Renal Disease: No Prior Interventions PCI: Yes CABG: No Valve Surgery: No Report Signatures Finalized by Sathish Ames MD on 02/19/2023 11:55 AM
[2023-02-16 08:05] LABS: Glucose Point of Care 127 mg/dL (70-110)
[2023-02-16] MEDS: albuterol 2.5 mg/3 mL Neb INHALATION (09:45)
--- NOTE | 2023-02-16 10:00 | W.PM.OPSUD ---
Surgery/Procedure H&P Update DATE OF PROCEDURE: February 16, 2023 DATE H&P PERFORMED: 02/08/23 H&P UPDATE INFORMATION: I have reviewed H&P completed within last 30 days, I have examined patient prior to procedure and No changes to prior documentation PREOP DIAGNOSIS: Dyspnea on exertion/ abnormal stress test PRIMARY INDICATION FOR PROCEDURE: Dyspnea on exertion/ abnormal stress test PLANNED PROCEDURE: Operation Date: 02/16/23 07:00 Proposed Procedures p RHC and LHC 52142,R94.39,I25.118,R06.02,R07.89,R78.5(Bilateral) - Sathish Ames M.D Possible percutaneous coronary intervention PATIENT REASSESSED PRIOR TO SEDATION, WITH NO CHANGE NOTED: Yes PHYSICAL EXAM: alert, oriented x 3 and regular rate & rhythm OTHER PERTINENT EXAM FINDINGS: Has mild wheezing AIRWAY EVAL/ANESTHESIA PLAN: normal airway, ASA III, Local Anesthesia, Risks, benefits & alternatives of sedation and/or procedure discussed and Patient agrees to continue as planned ADDITIONAL INFORMATION: Moderate sedation
[2023-02-16 10:30] LABS: Alveolar-Arterial Oxygen Gradi 4.2 mmHg (5-10); Arterial Blood Gas Hematocrit 42.5 % (42-52); Blood Gas Sample Type Arterial; Carboxyhemoglobin 4.8 %THgb (0.4-20.1); HGB O2 Sat 86.6 % (95-100); Methemoglobin 0.7 % (0.4-1.5); Total Hemoglobin 13.9 g/dL (14-18)
[2023-02-16 10:32] LABS: Alveolar-Arterial Oxygen Gradi 6.4 mmHg (5-10); Arterial Blood Gas Hematocrit 42.8 % (42-52); Blood Gas Sample Type Arterial; Carboxyhemoglobin 4.8 %THgb (0.4-20.1); HGB O2 Sat 67.5 % (95-100); Methemoglobin 0.6 % (0.4-1.5)
[2023-02-16 15:36] LABS: Blood Gas Sample Site UNKNOWM
[2023-02-16] MEDS: amlodipine 5 mg Tablet PO (18:42)
[2023-02-16] MEDS: gemfibrozil 600 mg Tablet PO (18:42)
[2023-02-16] MEDS: aspirin 81 mg EC Tablet PO (18:42)
[2023-02-16] MEDS: allopurinol 300 mg Tablet PO (18:42)
[2023-02-16] MEDS: pregabalin 150 mg Capsule PO (20:28)
[2023-02-17] VITALS: BP 121/80; PULSE 88; RESP 26; TEMP 36.6; O2SAT 93
[2023-02-17 04:00] VITALS: BP 117/67; PULSE 91; RESP 21; TEMP 36.6; O2SAT 93
[2023-02-17 07:28] VITALS: BP 123/58; PULSE 78; RESP 19; TEMP 36.6; O2SAT 92
[2023-02-17] MEDS: clopidogrel 75 mg Tablet PO (08:43)
[2023-02-17] MEDS: tamsulosin 0.4 mg Capsule PO (08:43)
[2023-02-17] MEDS: loratadine 10 mg Tablet PO (08:44)
[2023-02-17] MEDS: lisinopril 10 mg Tablet PO (08:44)
[2023-02-17 08:50] LABS: Anion Gap 15.3 (5-19); Blood Urea Nitrogen 26 mg/dL (8-23); Calcium 9.2 mg/dL (8.5-10.5); Carbon Dioxide 25 mmol/L (22-29); Chloride 101 mmol/L (98-107); Glucose 134 mg/dL (65-115); Osmolality Calculated 291 mOsm/kg (285-295); Potassium 4.3 mmol/L (3.5-5.1); Sodium 137 mmol/L (136-145)
--- NOTE | 2023-02-17 08:58 | P.DS_ITS ---
Discharge Providers Date of Admission: 02/16/23 11:24 Date of Discharge: February 17, 2023 Attending Provider at Admission: Sathish Ames M.D Attending Provider at Discharge: Sathish Ames MD Primary Care Provider: Hermilo Montenegro DO Reason for Visit Reason for Visit: R94.39, I25.118, R06.02, R07.89, R78.5 Brief History: 77-year-old man with past medical history of hypertension and CAD, who has been having worsening dyspnea on exertion and had abnormal stress test. Plan for right and left heart cath. Hospital Course Hospital Course Right heart catheter showed normal right and left-sided cardiac pressures. Left heart cath showed severe stenosis of proximal to mid RCA and underwent successful revascularization with 1 stent. He was observed overnight and stayed stable. He was discharged home on dual antiplatelet therapy. Physical Exam Narrative: GENERAL: Patient is alert, awake and oriented x3. [] NECK: No jugular vein distension. [] HEENT: No cyanosis. No icterus. No pallor. [] HEART: Regular S1 and S2. No murmur, rub or gallop. [] LUNGS: Mild wheezing CENTRAL NERVOUS SYSTEM: Grossly nonfocal. [] EXTREMITIES: Lower extremities with 1+ edema bilaterally. Discharge Data Studies Completed and Pending Pending at discharge Category Date Time Status [facility] [employer] request for service Routine Exams 02/16/23 07:00 Taken Retype for Patiets ABO/Rh Routine Lab 02/15/23 12:47 Received Laboratory Results WBC 7.32 10^3/uL (3.29-11.43) 02/15/23 10:06 RBC 4.78 10^6/uL (3.85-5.65) 02/15/23 10:06 Hgb 14.90 g/dL (11.27-16.99) 02/15/23 10:06 Hct 45.0 % (37-53) 02/15/23 10:06 MCV 94.1 fl (82-101) 02/15/23 10:06 MCH 31.2 pg (27-33) 02/15/23 10:06 MCHC 33.1 g/dL (30-55) 02/15/23 10:06 RDW 14.2 % (12.1-15.1) 02/15/23 10:06 Plt Count 195 10^3/cmm (157-399) 02/15/23 10:06 MPV 11.3 fL (7.4-10.4) H 02/15/23 10:06 Neut % (Auto) 62.2 % 02/15/23 10:06 Lymph % (Auto) 23.1 % 02/15/23 10:06 [place] % (Auto) 5.9 % 02/15/23 10:06 Eos % (Auto) 6.8 % 02/15/23 10:06 Baso % (Auto) 1.6 % 02/15/23 10:06 Neut # (Auto) 4.55 10^3/uL (1.8-7.7) 02/15/23 10:06 Lymph # (Auto) 1.7 10^3/uL (0.8-4.8) 02/15/23 10:06 [place] # (Auto) 0.4 10^3/uL (0.2-0.9) 02/15/23 10:06 Eos # (Auto) 0.5 10^3/uL (0.0-0.8) 02/15/23 10:06 Baso # (Auto) 0.1 10^3/uL (0.0-0.1) 02/15/23 10:06 Nucleated RBC % (auto) 0 % 02/15/23 10:06 Nucleated RBCs # 0.0 /100WBC 02/15/23 10:06 PT 13.00 SECONDS (12.1-14.9) 02/15/23 10:06 INR 0.96 (0.8-1.2) 02/15/23 10:06 Specimen Type Arterial 02/16/23 10:18 Specimen Type Arterial 02/16/23 10:18 Sample Site Unknowm 02/16/23 10:18 Sample Site Unknown 02/16/23 10:18 Mode Test N/a 02/16/23 10:18 Mode Test N/a 02/16/23 10:18 A-a O2 Gradient 4.2 mmHg (5-10) L 02/16/23 10:18 A-a O2 Gradient 6.4 mmHg (5-10) 02/16/23 10:18 Hematocrit 42.5 % (42-52) 02/16/23 10:18 Hematocrit 42.8 % (42-52) 02/16/23 10:18 Hgb O2 Saturation 67.5 % (95-100) L 02/16/23 10:18 Hgb O2 Saturation 86.6 % (95-100) L 02/16/23 10:18 Carboxyhemoglobin 4.8 %THgb (0.4-20.1) 02/16/23 10:18 Carboxyhemoglobin 4.8 %THgb (0.4-20.1) 02/16/23 10:18 Methemoglobin 0.6 % (0.4-1.5) 02/16/23 10:18 Methemoglobin 0.7 % (0.4-1.5) 02/16/23 10:18 Total Hemoglobin 13.9 g/dL (14-18) L 02/16/23 10:18 Total Hemoglobin 14.0 g/dL (14-18) 02/16/23 10:18 O2 Delivery Device Not Reportable 02/16/23 10:18 O2 Delivery Device Not Reportable 02/16/23 10:18 Supervisor Carbon Paper Coating ID [email or web address] 02/16/23 10:18 Supervisor Carbon Paper Coating ID [email or web address] 02/16/23 10:18 Sodium 137 mmol/L (136-145) 02/17/23 08:15 Potassium 4.3 mmol/L (3.5-5.1) 02/17/23 08:15 Chloride 101 mmol/L (98-107) 02/17/23 08:15 Carbon Dioxide 25 mmol/L (22-29) 02/17/23 08:15 Anion Gap 15.3 (5-19) 02/17/23 08:15 BUN 26 mg/dL (8-23) H 02/17/23 08:15 Creatinine 1.3 mg/dL (0.7-1.2) H 02/17/23 08:15 GFR Calculation Not Reportable 02/17/23 08:15 Glucose 134 mg/dL (65-115) H 02/17/23 08:15 POC Glucose 127 mg/dL (70-110) H 02/16/23 08:02 Calculated Osmolality 291 mOsm/kg (285-295) 02/17/23 08:15 Calcium 9.2 mg/dL (8.5-10.5) 02/17/23 08:15 NT-Pro-B Natriuret Pep 257 pg/mL (0-450) 02/15/23 10:06 Blood Type O Positive 02/15/23 10:06 Rho(D) Type Positive 02/15/23 10:06 Antibody Screen Negative 02/15/23 10:06 Vitals Last Vital Signs Temp 97.8 F 02/17/23 07:28 Pulse 78 02/17/23 07:28 Resp 19 H 02/17/23 07:28 BP 123/58 02/17/23 07:28 Pulse Ox 92 02/17/23 07:28 O2 Del Method Room Air 02/17/23 07:28 O2 Flow Rate 3 02/16/23 15:42 Discharge Plan Discharge Patient Disposition: Home Condition: Stable Prescriptions: New clopidogrel 75 mg Tablet 75 mg PO DAILY Qty: 90 3RF clopidogrel 75 mg tablet 75 mg PO DAILY Qty: 30 0RF Continued gemfibrozil 600 mg tablet 600 mg PO QPM methocarbamol 750 mg tablet 750 mg PO TID PRN (Reason: Muscle Spasm) pregabalin 150 mg capsule 150 mg PO BEDTIME allopurinol 300 mg tablet 300 mg PO QPM colchicine (gout) 0.6 mg tablet 0.6 mg PO DAILY PRN (Reason: gout flareup) cholecalciferol (vitamin D3) [Vitamin D3] 50 mcg (2,000 unit) capsule 50 mcg PO QPM amlodipine 5 mg tablet 5 mg PO QPM naproxen sodium [Aleve] 220 mg capsule 220 mg PO BID PRN (Reason: Pain) Hold Instructions: Resume on 05/01/21. Resume at completion of Celebrex albuterol sulfate [ProAir HFA] 90 mcg/actuation HFA aerosol inhaler 2 puff inhalation Q6H PRN (Reason: Shortness Of Breath) (DME) lancets [Accu-Chek Softclix Lancets] Misc See Rx Instructions .ROUTE .MEDSUPPLY Qty: 50 Rx Instructions: As directed (DME) lymphedema wrap See Rx Instructions .Route .MEDSUPPLY Qty: 1 0RF Rx Instructions: Wrap from foot to above knee due to swelling PRN tamsulosin 0.4 mg capsule 0.4 mg PO DAILY meloxicam 15 mg tablet 45 mg PO .weekly loratadine [Claritin] 10 mg tablet 10 mg PO DAILY lisinopril 20 mg tablet 10 mg PO DAILY mupirocin 2 % Ointment 1 applic TOPICAL BID PRN (Reason: Itching) Enteric Coated Aspirin 81 mg tablet,delayed release (DR/EC) 81 mg PO QPM Qty: 90 3RF Held metformin 1,000 mg tablet 500 mg PO BID Hold Instructions: Resume on 02/18/23. Discontinued aspirin-sod bicarb-citric acid 324 mg Tablet, Effervescent 1 ea PO PRN PRN (Reason: indigestion) Discharge Orders: Discharge Order (Routine); Ordered 02/17/23 Ordered By: Sathish Ames Referrals: Sathish Ames M.D [Physician] - (Your Dr. Ames follow up appointment will be scheduled during your Cecily Murphy appointment. Thank you.) Cecily Murphy FNP [Nurse Practitioner] - 02/24/23 10:30 am Discharge Diet: Diabetic Discharge Activity: Increase activity as tolerated Patient Instructions: Coronary Angioplasty (DC), Opioid Safety, Post Angiogram Home Care Instructions Discharge Attestations Time Spent in Discharge Care*: less than 30 min Quality Metrics Clinical Quality Measures [ No reported AMI, CVA or VTE this stay] Coding Level of Care Code Acute Code for Chg Fwd Diagnoses
[2023-02-17 09:09] VITALS: BP 123/58; PULSE 78; RESP 19; TEMP 36.6; O2SAT 92
== END 2023-02-17 09:29 | disposition home or self-care (01) ==
LOC: CSU 11:25
PROVIDERS: Admitting Provider Internal Medicine; PCP Emergency Medicine Emergency Medical Services; Visit Provider Internal Medicine Cardiovascular Disease
DX: I25.118 Atherosclerotic heart disease of native coronary artery with other forms of angina pectoris (principal); I27.20 Pulmonary hypertension, unspecified; I10 Essential (primary) hypertension; E78.5 Hyperlipidemia, unspecified; E66.9 Obesity, unspecified; Z68.39 Body mass index [BMI] 39.0-39.9, adult; Z79.82 Long term (current) use of aspirin; J44.9 Chronic obstructive pulmonary disease, unspecified; E13.9 Other specified diabetes mellitus without complications; K21.9 Gastro-esophageal reflux disease without esophagitis; Z79.84 Long term (current) use of oral hypoglycemic drugs; Z95.5 Presence of coronary angioplasty implant and graft; F17.210 Nicotine dependence, cigarettes, uncomplicated; Z79.01 Long term (current) use of anticoagulants
CPT/HCPCS: 36415; 36416; 80048; 82810; 82962; 83880; 85025; 85347; 85610; 86850; 86900; 93456; 94640; 96361; 96365; 99152; 99153; C1725; C1751; C1769; C1874; C1887; C1894; C9600; G0378; J1644; J2250; J3010; J3490; J7030; J7613; Q0163; Q9967

== ENCOUNTER → 2023-02-24 10:17 | Outpatient (BNVA) | payer OTHER, SELFPAY | PROVIDERS: PCP Emergency Medicine Emergency Medical Services; Visit Provider Nurse Practitioner Family | DX: I25.118 Atherosclerotic heart disease of native coronary artery with other forms of angina pectoris (principal); I27.20 Pulmonary hypertension, unspecified; J44.9 Chronic obstructive pulmonary disease, unspecified; F17.210 Nicotine dependence, cigarettes, uncomplicated; I10 Essential (primary) hypertension | CPT/HCPCS: 36415; 80048; 99214 ==

== ENCOUNTER 2023-03-21 09:02 | Outpatient (CLI) | payer OTHER, SELFPAY ==
[2023-03-21 09:47] LABS: Blood Urea Nitrogen 34 mg/dL (8-23); Calcium 9.4 mg/dL (8.5-10.5); Carbon Dioxide 30 mmol/L (22-29); Chloride 97 mmol/L (98-107); Glucose 130 mg/dL (65-115); Osmolality Calculated 293 mOsm/kg (285-295); Sodium 137 mmol/L (136-145)
== END 2023-03-21 09:03 | disposition home or self-care (01) ==
PROVIDERS: PCP Emergency Medicine Emergency Medical Services; Visit Provider Internal Medicine Cardiovascular Disease
DX: I25.118 Atherosclerotic heart disease of native coronary artery with other forms of angina pectoris (principal)
CPT/HCPCS: 36415; 80048

== ENCOUNTER → 2023-04-04 14:21 | Outpatient (BNVA) | payer OTHER, SELFPAY | PROVIDERS: PCP Emergency Medicine Emergency Medical Services; Visit Provider Internal Medicine Cardiovascular Disease | DX: I25.118 Atherosclerotic heart disease of native coronary artery with other forms of angina pectoris (principal); R07.89 Other chest pain; E78.1 Pure hyperglyceridemia; E13.9 Other specified diabetes mellitus without complications; Z79.84 Long term (current) use of oral hypoglycemic drugs; I10 Essential (primary) hypertension; J43.8 Other emphysema; F17.210 Nicotine dependence, cigarettes, uncomplicated | CPT/HCPCS: 99214 ==

== ENCOUNTER 2023-04-12 20:00 | Outpatient (CLI) | payer OTHER, SELFPAY | END 2023-04-12 20:01 | disposition home or self-care (01) | LOC: SLEEP 04-13 06:17 | PROVIDERS: PCP Emergency Medicine Emergency Medical Services; Visit Provider Emergency Medicine Emergency Medical Services | DX: G47.33 Obstructive sleep apnea (adult) (pediatric) (principal) | CPT/HCPCS: 95811 ==

== ENCOUNTER 2023-04-26 12:47 | Outpatient (CLI) | payer OTHER, SELFPAY ==
[2023-04-26 13:02] VITALS: PULSE 56; RESP 18; O2SAT 99
[2023-04-26] MEDS: albuterol 2.5 mg/3 mL Neb INHALATION (13:02)
[2023-04-26 13:07] VITALS: PULSE 51
== END 2023-04-26 12:48 | disposition home or self-care (01) ==
LOC: RT 12:47
PROVIDERS: PCP Emergency Medicine Emergency Medical Services; Visit Provider Nurse Practitioner Family
DX: J44.9 Chronic obstructive pulmonary disease, unspecified (principal); I27.20 Pulmonary hypertension, unspecified; Z72.0 Tobacco use; R94.2 Abnormal results of pulmonary function studies
CPT/HCPCS: 94060; 94726; 94729; J7613

== ENCOUNTER → 2023-06-13 16:17 | Outpatient (BNVA) | payer OTHER, SELFPAY | PROVIDERS: PCP Emergency Medicine Emergency Medical Services; Referring Provider Emergency Medicine Emergency Medical Services; Visit Provider Internal Medicine Pulmonary Disease | DX: R06.02 Shortness of breath (principal) | CPT/HCPCS: 36415; 82785; 86003; 99204 ==

== ENCOUNTER → 2023-07-06 08:57 | Outpatient (BNVA) | payer OTHER, SELFPAY | PROVIDERS: PCP Emergency Medicine Emergency Medical Services; Visit Provider Urology | DX: N40.1 Benign prostatic hyperplasia with lower urinary tract symptoms (principal) | CPT/HCPCS: 84153 ==

== ENCOUNTER → 2023-07-26 10:15 | Outpatient (BNVA) | payer OTHER, SELFPAY | PROVIDERS: PCP Emergency Medicine Emergency Medical Services; Referring Provider Emergency Medicine Emergency Medical Services; Visit Provider Surgery | DX: Z12.11 Encounter for screening for malignant neoplasm of colon (principal) | CPT/HCPCS: 99214 ==

== ENCOUNTER 2023-08-23 09:17 | Day surgery (SDC) | payer OTHER, SELFPAY ==
[2023-08-23 09:20] VITALS: BMI 39.4
--- NOTE | 2023-08-23 09:24 | ANES.PREANE2 ---
Pre-Anesthetic Assessment Height/Weight: Height 1.78 m Weight 124.738 kg Operation Date: 08/23/23 10:30 Proposed Procedures p Colonoscopy(Not Applicable) - Duncan Jasso MD Social Tobacco and No alcohol Exam alert, oriented x 3, clear to auscultation bilaterally and regular rate & rhythm Airway Submandibular: within normal limits Cervical ROM: Other (limited) Mallampati: Class II Pulmonary Chronic Obstructive Pulmonary Disease, Cough, Exertional Dyspnea and Shortness of Breath CV/HEM Coronary Artery Disease and Hypertension Metabolic Diabetes Mellitus, Hyperlipidemia and Morbid Obesity Anesthetic Plan ASA status: 3 Anesthesia: MAC Medications/Allergies Home Medications Medication Instructions Recorded Confirmed Last Taken Type lancets (Accu-Chek Softclix #50 ea 07/11/19 07/26/23 Unknown History Lancets) allopurinol 300 mg tablet 300 mg PO QPM see all pharmacy 08/06/20 08/19/23 08/18/23 History comments cholecalciferol (vitamin D3) 50 50 mcg PO QPM 08/06/20 08/19/23 08/18/23 History mcg (2,000 unit) capsule (Vitamin D3) pregabalin 150 mg capsule 150 mg PO BEDTIME [facility] 08/06/20 08/19/23 08/18/23 History 150mg tid pt states he just takes 1 cap at bedtime albuterol sulfate 90 mcg/actuation 2 puff inhalation Q6H PRN 01/19/21 08/19/23 08/18/23 History aerosol inhaler (ProAir HFA) Shortness Of Breath lymphedema wrap #1 ea 05/04/21 07/26/23 Unknown Rx loratadine 10 mg tablet (Claritin) 10 mg PO DAILY 02/08/23 08/19/23 08/18/23 History aspirin 81 mg tablet,delayed 81 mg PO QPM pt states he takes 02/17/23 08/19/23 08/15/23 Rx release (Enteric Coated Aspirin) maybe 5 out of 7 days pt states if he doesnt eat supper then he doesnt take #90 tabs clopidogrel 75 mg tablet 75 mg PO DAILY #90 tabs 02/17/23 08/19/23 08/15/23 Rx gemfibrozil 600 mg tablet 600 mg PO BID [facility] med [facility] 04/04/23 08/19/23 08/18/23 History 600mg bid-pt states he just takes one tab qpm if he eats supper finasteride 5 mg tablet 5 mg PO DAILY 06/13/23 08/19/23 08/18/23 History furosemide 40 mg tablet 40 mg PO DAILY 06/13/23 08/19/23 08/18/23 History potassium chloride 20 mEq 10 meq PO DAILY 06/13/23 08/19/23 08/18/23 History tablet,extended release budesonide 160 mcg-glycopyr 9 2 inh inhalation BID 07/26/23 08/19/23 08/18/23 History mcg-formot 4.8 mcg/actuation HFA inhaler (Breztri Aerosphere) cyclobenzaprine 10 mg tablet 10 mg PO DAILY PRN Muscle Spasm 07/26/23 08/19/23 08/18/23 History tamsulosin 0.4 mg capsule 0.8 mg PO DAILY 07/26/23 08/19/23 08/18/23 History pioglitazone 30 mg tablet 30 mg PO DAILY 08/22/23 08/22/23 08/15/23 History Allergies Allergy/AdvReac Type Severity Reaction Status Date / Time simvastatin Allergy Intermediate unknown Verified 08/18/23 11:50 PENDING SALE TO [facility] Anesthesia Medical History 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, managed as type 1 COPD (chronic obstructive pulmonary disease) Hyperlipemia Essential (primary) hypertension GERD (gastroesophageal reflux disease) Surgical History (Updated 07/26/23 @ 10:[address]) History of coronary artery stent placement Family History Mother Cancer Other Diabetes Denies family history of CAD (coronary artery disease) Stroke Social History Smoking and tobacco/nicotine status: current every day tobacco/nicotine user cigarettes Packs smoked per day: 1 Years cigarettes smoked: 70 [ Other cigarette details: Started at age 7] Alcohol intake: never Substance/Drug Use: never Lives independently: Yes Household members: spouse Marital status: Data Anesthesia Cardiac Studies: Echocardiogram 01/03/23 Echocardiogram Ultrasound 10/09/20 Sestamibi Stress Test (Cardiology) 01/13/23
--- NOTE | 2023-08-23 09:34 | W.PM.OPSUD ---
Surgery/Procedure H&P Update DATE OF PROCEDURE: August 23, 2023 DATE H&P PERFORMED: 02/08/23 H&P UPDATE INFORMATION: I have reviewed H&P completed within last 30 days, I have examined patient prior to procedure, No changes to prior documentation and H&P is in [facility] EMR on date indicated PLANNED PROCEDURE: Operation Date: 08/23/23 10:30 Proposed Procedures p Colonoscopy(Not Applicable) - Duncan Jasso MD
[2023-08-23 09:36] VITALS: BP 131/76; PULSE 65; RESP 18; TEMP 36.1; O2SAT 97
[2023-08-23] MEDS: sodium chloride 0.9% 1,000 ML 30 ML IV (09:50)
[2023-08-23 09:53] LABS: Glucose Point of Care 120 mg/dL (70-110)
[2023-08-23 10:52] VITALS: BP 131/71; PULSE 83; RESP 14; TEMP 36.3; O2SAT 97
[2023-08-23 11:02] VITALS: BP 127/81; PULSE 83; RESP 16; O2SAT 95
--- NOTE | 2023-08-23 12:49 | ANE.PACU2 ---
Inpatient post-anesthesia follow up: Vital signs: Temperature 97.3 F Pulse Rate 83 Respiratory Rate 16 Blood Pressure 127/81 Pulse Oximetry 95 Oxygen Delivery Me thod Room Air Oxygen Flow Rate Fraction of Inspir ed Oxygen Hydration adequate: Yes Nausea and vomiting: No Pain level: 1 Mental status: Baseline
== END 2023-08-23 11:25 | disposition home or self-care (01) ==
PROVIDERS: PCP Emergency Medicine Emergency Medical Services; Visit Provider Surgery
PROC: 0DJD8ZZ Inspection of Lower Intestinal Tract, Via Natural or Artificial Opening Endoscopic (ICD-10-PCS; CPT 45378; principal; 2023-08-23 10:30)
DX: Z12.11 Encounter for screening for malignant neoplasm of colon (principal); D12.2 Benign neoplasm of ascending colon; Z79.82 Long term (current) use of aspirin; J44.9 Chronic obstructive pulmonary disease, unspecified; E13.9 Other specified diabetes mellitus without complications; I10 Essential (primary) hypertension; K21.9 Gastro-esophageal reflux disease without esophagitis; E78.5 Hyperlipidemia, unspecified; Z95.5 Presence of coronary angioplasty implant and graft; F17.210 Nicotine dependence, cigarettes, uncomplicated; I25.10 Atherosclerotic heart disease of native coronary artery without angina pectoris; E11.9 Type 2 diabetes mellitus without complications; E66.01 Morbid (severe) obesity due to excess calories; Z68.39 Body mass index [BMI] 39.0-39.9, adult
CPT/HCPCS: 36416; 45385; 82962; 88305; J2704; J7030

== ENCOUNTER → 2023-09-07 13:45 | Outpatient (BNVA) | payer OTHER, SELFPAY | PROVIDERS: PCP Emergency Medicine Emergency Medical Services; Visit Provider Surgery | DX: Z98.890 Other specified postprocedural states (principal); Z86.010 Personal history of colon polyps | CPT/HCPCS: 99212 ==

== ENCOUNTER → 2023-09-12 14:29 | Outpatient (BNVA) | payer OTHER, SELFPAY | PROVIDERS: PCP Emergency Medicine Emergency Medical Services; Visit Provider Internal Medicine Pulmonary Disease | DX: J44.89 Other specified chronic obstructive pulmonary disease (principal); R06.02 Shortness of breath; Z12.2 Encounter for screening for malignant neoplasm of respiratory organs; F17.210 Nicotine dependence, cigarettes, uncomplicated | CPT/HCPCS: 99214 ==

== ENCOUNTER 2023-09-22 08:33 | Emergency (ER) | payer OTHER, MEDICARE, SELFPAY ==
--- NOTE | 2023-09-22 08:39 | USCV_ITS ---
Jaquan Alba Age: 78 Gender: M : 1945 Exam Date: 09/22/2023 08:58 Ordering Phys: Crhistopher Rizzo DO Technologist: INGA [place] [facility] [place]: LE pain and swelling HISTORY: Lower extremity pain. Lower extremity swelling. PROCEDURES: Venous duplex imaging was performed in only the right lower extremity. The following venous structures were evaluated: common femoral vein, profunda vein, proximal portion of the greater saphenous vein, superficial femoral vein, and the popliteal vein. In addition, the posterior tibial and peroneal trunk were evaluated. Serial compression, augmentation maneuvers, and spectral Doppler flow evaluation were performed. FINDINGS: No evidence of DVT seen in any vessel visualized at this time. Appears to have some SVT, chronic through entirety of the GSV CONCLUSIONS No evidence of right lower extremity DVT. 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
[2023-09-22 08:47] VITALS: BP 141/100; PULSE 85; RESP 16; TEMP 36.7; O2SAT 98; BMI 39.4
[2023-09-22 09:25] LABS: Basophils # 0.1 10^3/uL (0.0-0.1); Basophils % 1.3 %; Eosinophils # 0.2 10^3/uL (0.0-0.8); Eosinophils % 5.3 %; Hematocrit 42.1 % (37-53); Lymphocytes # 1.4 10^3/uL (0.8-4.8); Lymphocytes % 29.8 %; Mean Corpuscular HGB Conc 32.1 g/dL (30-55); Mean Corpuscular Hemoglobin 31.8 pg (27-33); Mean Corpuscular Volume 99.1 fl (82-101); Mean Platelet Volume 12.2 fL (7.4-10.4); Monocytes # 0.3 10^3/uL (0.2-0.9); Monocytes % 7.1 %; Neutrophils # 2.55 10^3/uL (1.8-7.7); Neutrophils % 56.3 %; Nucleated Red Blood Cells % 0 %; Platelet Count 136 10^3/cmm (157-399); Red Blood Count 4.25 10^6/uL (3.85-5.65); Red Cell Distribution Width 14.5 % (12.1-15.1); White Blood Count 4.53 10^3/uL (3.29-11.43)
[2023-09-22 09:42] LABS: Alanine Aminotransferase 13 U/L (0-41); Albumin Level 3.5 g/dL (3.5-5.2); Alkaline Phosphatase 103 U/L (40-130); Anion Gap 15.6 (5-19); Aspartate Amino Transferase 18 U/L (0-40); Blood Urea Nitrogen 24 mg/dL (8-23); Calcium 9.3 mg/dL (8.5-10.5); Carbon Dioxide 28 mmol/L (22-29); Chloride 99 mmol/L (98-107); Creatinine Clr Calc Pharmacy 52.0529; Globulin 3.2 g/dL (1.3-4.6); Glucose 109 mg/dL (65-115); Osmolality Calculated 293 mOsm/kg (285-295); Potassium 3.6 mmol/L (3.5-5.1); Sodium 139 mmol/L (136-145); Total Bilirubin 0.5 mg/dL (0.15-1.2); Total Protein 6.7 g/dL (6.6-8.7)
--- NOTE | 2023-09-22 09:42 | XR_ITS ---
WS: [id number] Exam: XR chest 1V portable [id number] Date/Time of Exam: 09/22/2023 9:48 AM Reason For Exam: dyspnea Comparison 11/23/2022. Lungs are clear and fully inflated. Normal cardiomediastinal silhouette. No pleural effusions. Bony s tructures are unremarkable. XR/XR chest 1V portable [id number] IMPRESSION: 1. No acute cardiopulmonary process.
[2023-09-22 10:23] LABS: NT Pro B Type Natriuretic Pept 1912 pg/mL (0-450)
--- NOTE | 2023-09-22 11:00 | ED_ITS ---
HPI - Extremity Problem 2 General: Chief complaint: Extremity Problem,Nontraumatic Stated complaint: sent from [place] right leg swelling Time Seen by Provider: 09/22/23 08:36 Source: patient Mode of arrival: ambulatory History of Present Illness: 78-year-old male presents emergency room with bilateral leg swelling. He is concerned about a possible blood clot his right leg is more swollen and tender. No fever sweats or chills. Patient has history of COPD. He does have some chronic orthopnea. He has some exertional dyspnea as well both seem to have been worsening recently. 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, managed as type 1 COPD (chronic obstructive pulmonary disease) Hyperlipemia Essential (primary) hypertension GERD (gastroesophageal reflux disease) Surgical History History of colonoscopy with polypectomy 2020 History of coronary artery stent placement Family History Mother Cancer Other Diabetes Denies family history of CAD (coronary artery disease) Stroke Social History Smoking and tobacco/nicotine status: current every day tobacco/nicotine user cigarettes Packs smoked per day: 1 Years cigarettes smoked: 70 [ Other cigarette details: Started at age 7] Alcohol intake: never Substance/Drug Use: never Lives independently: Yes Household members: spouse Marital status: Physical Exam 2 Const: GENERAL APPEARANCE: cooperative and comfortable O RIENTATION/CONSCIOUSNESS: Yes awake, Yes oriented to person, Yes oriented to place and Yes oriented to time HENMT: COMMON NORMALS: normocephalic, atraumatic and hearing grossly normal bilaterally HEAD & SCALP: normocephalic and atraumatic Resp: COMMON NORMALS: normal respiratory effort, No retractions, No use of accessory muscles and clear to auscultation bilaterally AUSCULTATION: clear to auscultation bilaterally Cardio: COMMON NORMALS: regular rate and regular rhythm RATE: regular rate RHYTHM: regular rhythm HEART SOUNDS: Murmur heart sound present systolic Location: right sternal border Intensity: IV/ GI: COMMON NORMALS: Soft to palpation and No hepatosplenomegaly present A USCULTATION: Yes normoactive bowel sounds PALPATION: Yes Soft to palpation, No Tenderness to palpation present (GI), No Guarding due to palpation present (GI) and Yes No hepatosplenomegaly present Extremity: COMMON NORMALS: normal to inspection, capillary refill normal and no calf tenderness GENERAL: Yes edema Neuro: SENSORIUM/ORIENTATION: Yes oriented to person, Yes oriented to place and Yes oriented to time Skin: COMMON NORMALS: no rashes or lesions noted GENERAL SKIN EXAM: no rashes or lesions noted Course 2 Vital Signs: Vital signs: Vital Signs Temperature 98.1 F 09/22/23 08:47 Pulse Rate 85 09/22/23 08:47 Respiratory Rate 16 09/22/23 08:47 Blood Pressure 141/100 09/22/23 08:47 Pulse Oximetry 98 09/22/23 08:47 Oxygen Delivery Me thod Room Air 09/22/23 08:47 MDM - Extremity (Nontraumatic) Medical Decision Making BNP is slightly elevated patient does have lower extremity edema there is no sign of DVT on ultrasound, did show superficial venous thrombosis with some areas of calcification reflecting chronic changes.. Patient offered Lasix IV in the emergency room and declined preferred oral. We talked about possible observation but he would prefer to treat as an outpatient we will have him increase his Lasix and his potassium supplement doubling both for the next 4 days follow-up with his primary care doctor next week if symptoms worsen or change recheck Medical Records I reviewed the patient's medical records. Lab Data I reviewed the patient's lab results. 09/22/23 09:10 09/22/23 09:10 Radiology Impressions Chest X-Ray 09/22/23 09:42 IMPRESSION: 1. No acute cardiopulmonary process. Laboratory Results WBC 4.53 10^3/uL (3.29-11.43) 09/22/23 09:10 RBC 4.25 10^6/uL (3.85-5.65) 09/22/23 09:10 Hgb 13.50 g/dL (11.27-16.99) 09/22/23 09:10 Hct 42.1 % (37-53) 09/22/23 09:10 MCV 99.1 fl (82-101) 09/22/23 09:10 MCH 31.8 pg (27-33) 09/22/23 09:10 MCHC 32.1 g/dL (30-55) 09/22/23 09:10 RDW 14.5 % (12.1-15.1) 09/22/23 09:10 Plt Count 136 10^3/cmm (157-399) L 09/22/23 09:10 MPV 12.2 fL (7.4-10.4) H 09/22/23 09:10 Neut % (Auto) 56.3 % 09/22/23 09:10 Lymph % (Auto) 29.8 % 09/22/23 09:10 [place] % (Auto) 7.1 % 09/22/23 09:10 Eos % (Auto) 5.3 % 09/22/23 09:10 Baso % (Auto) 1.3 % 09/22/23 09:10 Neut # (Auto) 2.55 10^3/uL (1.8-7.7) 09/22/23 09:10 Lymph # (Auto) 1.4 10^3/uL (0.8-4.8) 09/22/23 09:10 [place] # (Auto) 0.3 10^3/uL (0.2-0.9) 09/22/23 09:10 Eos # (Auto) 0.2 10^3/uL (0.0-0.8) 09/22/23 09:10 Baso # (Auto) 0.1 10^3/uL (0.0-0.1) 09/22/23 09:10 Nucleated RBC % (auto) 0 % 09/22/23 09:10 Nucleated RBCs # 0.0 /100WBC 09/22/23 09:10 Sodium 139 mmol/L (136-145) 09/22/23 09:10 Potassium 3.6 mmol/L (3.5-5.1) 09/22/23 09:10 Chloride 99 mmol/L (98-107) 09/22/23 09:10 Carbon Dioxide 28 mmol/L (22-29) 09/22/23 09:10 Anion Gap 15.6 (5-19) 09/22/23 09:10 BUN 24 mg/dL (8-23) H 09/22/23 09:10 Creatinine 1.5 mg/dL (0.7-1.2) H 09/22/23 09:10 GFR Calculation Not Reportable 09/22/23 09:10 Glucose 109 mg/dL (65-115) 09/22/23 09:10 Calculated Osmolality 293 mOsm/kg (285-295) 09/22/23 09:10 Calcium 9.3 mg/dL (8.5-10.5) 09/22/23 09:10 Total Bilirubin 0.5 mg/dL (0.15-1.2) 09/22/23 09:10 AST 18 U/L (0-40) 09/22/23 09:10 ALT 13 U/L (0-41) 09/22/23 09:10 Alkaline Phosphatase 103 U/L (40-130) 09/22/23 09:10 NT-Pro-B Natriuret Pep 1912 pg/mL (0-450) H 09/22/23 09:10 Total Protein 6.7 g/dL (6.6-8.7) 09/22/23 09:10 Albumin 3.5 g/dL (3.5-5.2) 09/22/23 09:10 Globulin 3.2 g/dL (1.3-4.6) 09/22/23 09:10 All radiology interpretation(s) finalized by discharge Discharge Plan Discharge Patient Disposition: Home Clinical Impression: Edema, Superficial thrombophlebitis of right leg Condition: Stable Prescriptions: New ropinirole 0.5 mg tablet 0.5 mg PO .QHS Qty: 30 0RF No Action pregabalin 150 mg capsule 150 mg PO BID allopurinol 300 mg tablet 300 mg PO QPM cholecalciferol (vitamin D3) [Vitamin D3] 50 mcg (2,000 unit) capsule 50 mcg PO QPM gemfibrozil 600 mg tablet 600 mg PO BID albuterol sulfate [ProAir HFA] 90 mcg/actuation HFA aerosol inhaler 2 puff inhalation Q6H PRN (Reason: Shortness Of Breath) (DME) lancets [Accu-Chek Softclix Lancets] Misc See Rx Instructions .ROUTE .MEDSUPPLY Qty: 50 Rx Instructions: As directed (DME) lymphedema wrap See Rx Instructions .Route .MEDSUPPLY Qty: 1 0RF Rx Instructions: Wrap from foot to above knee due to swelling PRN tamsulosin 0.4 mg capsule 0.8 mg PO QPM loratadine [Claritin] 10 mg tablet 10 mg PO DAILY furosemide 40 mg tablet 40 mg PO DAILY finasteride 5 mg tablet 5 mg PO DAILY potassium chloride 20 mEq tablet extended release 10 meq PO DAILY PRN (Reason: Edema) cyclobenzaprine 10 mg tablet 10 mg PO DAILY PRN (Reason: Muscle Spasm) Breztri Aerosphere 160-9-4.8 mcg/actuation HFA aerosol inhaler 2 inh inhalation BID pioglitazone 30 mg Tablet 30 mg PO QAM albuterol sulfate 2.5 mg /3 mL (0.083 %) Solution For Nebulization 2.5 mg INHALATION Q6H PRN (Reason: Shortness Of Breath) pantoprazole 20 mg Tablet,Delayed Release (Dr/Ec) 20 mg PO QAM hydrocortisone 2.5 % Cream 1 applic TOPICAL QID PRN (Reason: Skin Irritation) Advair Diskus 100-50 mcg/dose Blister With Device 1 inh INHALATION BID sodium chloride 0.65 % Aerosol,[place] 2 spray INTRANASAL QID Spiriva Respimat 2.5 mcg/actuation Mist 2 puff INHALATION DAILY Enteric Coated Aspirin 81 mg tablet,delayed release (DR/EC) 81 mg PO QPM clopidogrel 75 mg Tablet 75 mg PO DAILY Qty: 90 3RF Discharge Orders: Discharge ED (Routine); Ordered 09/22/23 Ordered By: Christopher Rizzo Referrals: Hermilo Montenegro, DO [Primary Care Provider] - Discharge Diet: Low Salt Discharge Activity: Increase activity as tolerated Patient Instructions: Opioid Safety, Pain Management Activity Restrictions/Additional Instructions: Thank you for choosing [facility] for your healthcare needs today. Please realize this is an emergency room and that we are providing you with a medical screening exam and this may not be complete and all inclusive of all the testing and or work up that you may need to determine your ailment or severity of your illness. It is very important that you follow up as instructed or that you return to the Emergency Department should you have concerns or if your condition changes or worsens in any way. 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 Recommend you increase your Lasix to 80 mg daily and increase your potassium intake to 20 mill equivalents twice a day for the next 4 days. You should be seen by your primary care doctor on September 25 in the office to have repeat lab work done. Additionally you are given a prescription for ropinirole for leg cramps take 1 at night. The dose on this medication can be adjusted if you have persistent problems. Coding Level of Care Code ED Station Superintendent for Jose Mckeon
[2023-09-22] MEDS: FUROsemide 40 mg Tablet 60 MG PO (11:21)
== END 2023-09-22 13:15 | disposition home or self-care (01) ==
PROVIDERS: Emergency Provider Family Medicine; PCP Emergency Medicine Emergency Medical Services
DX: R60.0 Localized edema (principal); I80.01 Phlebitis and thrombophlebitis of superficial vessels of right lower extremity; Z79.02 Long term (current) use of antithrombotics/antiplatelets; F17.210 Nicotine dependence, cigarettes, uncomplicated; E13.9 Other specified diabetes mellitus without complications; J44.9 Chronic obstructive pulmonary disease, unspecified; E78.5 Hyperlipidemia, unspecified; I10 Essential (primary) hypertension
CPT/HCPCS: 36415; 71045; 80053; 83880; 85025; 93971; 99284

== ENCOUNTER → 2024-04-16 15:29 | Outpatient (BNVA) | payer OTHER, SELFPAY | PROVIDERS: PCP Family Medicine; Visit Provider Internal Medicine Cardiovascular Disease | DX: I25.10 Atherosclerotic heart disease of native coronary artery without angina pectoris (principal); I10 Essential (primary) hypertension; E78.1 Pure hyperglyceridemia; E13.9 Other specified diabetes mellitus without complications; R23.3 Spontaneous ecchymoses; F17.210 Nicotine dependence, cigarettes, uncomplicated | CPT/HCPCS: 99214 ==

== ENCOUNTER → 2024-05-03 09:57 | Outpatient (BNVA) | payer OTHER, SELFPAY | PROVIDERS: PCP Family Medicine; Referring Provider Nurse Practitioner Family; Visit Provider Dermatology | DX: D22.5 Melanocytic nevi of trunk (principal); D36.15 Benign neoplasm of peripheral nerves and autonomic nervous system of abdomen; L85.3 Xerosis cutis; D22.39 Melanocytic nevi of other parts of face; I78.8 Other diseases of capillaries; L82.1 Other seborrheic keratosis; I87.2 Venous insufficiency (chronic) (peripheral); L82.0 Inflamed seborrheic keratosis; L53.8 Other specified erythematous conditions; R58 Hemorrhage, not elsewhere classified; L29.89 Other pruritus; L57.0 Actinic keratosis | CPT/HCPCS: 11102; 17000; 17110; 99203 ==

== ENCOUNTER 2024-05-31 12:56 | Emergency (ER) | payer OTHER, MEDICARE, SELFPAY ==
[2024-05-31] VITALS (7 sets, daily range): BP systolic 117–127; BP diastolic 54–82; PULSE 77–95; RESP 16–24; TEMP 36.7; O2SAT 92–96; BMI 39.7
--- NOTE | 2024-05-31 13:08 | ECG_ITS ---
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 Measurements Intervals [place] Rate: 92 P: 92 [place]: 170 QRS: 52 QRSD: 112 T: 80 QT: 394 QTc: 487 Interpretive Statements SINUS RHYTHM WITH FREQUENT VENTRICULAR PREMATURE COMPLEXES MODERATE INTRAVENTRICULAR CONDUCTION DELAY [110+ ms QRS DURATION] Compared to ECG 12/22/2022 12:02:48 Intraventricular conduction delay now present Electronically Signed On 05-31-2024 21:49:40 [employer]ES [employer]SULTANT by Sathish Ames M.D. [email or web address]
--- NOTE | 2024-05-31 13:08 | XR_ITS ---
WS: [id number] Portable AP upright chest, 05/31/2024 Clinical Data: sob, abnormal EKG Comparison: Portable chest, 09/22/2023 Findings: No nodules, masses or effusions are seen. The heart is normal. The pulmonary vascularity is not increased. No pneumonia or pneumothorax is seen. The heart is enlarged. Monitor leads are on the chest wall. XR/XR chest 1V portable [id number] Impression: Cardiomegaly.
--- NOTE | 2024-05-31 13:12 | W.ED.CHESTPA ---
HPI - Chest Pain General: Chief Complaint: Chest Pain Stated Complaint: irregular ekg Time Seen by Provider: 05/31/24 13:02 Source: patient Mode of arrival: EMS Limitations: no limitations History of Present Illness: Patient is an 78-year-old male with past medical history of hyperlipidemia, hypertension, COPD, and diabetes who is brought in by ambulance due to an abnormal EKG. [facility], was found on EKG to have bigeminy and was subsequently sent to the ED. Patient is only complaining of some mild shortness of breath which she states is intermittent and only worsened by how hard I pulled up lateral. Of note, he recently saw his tab cutting machine operator, Dr. Handley, in March 2024 for a 1 year follow-up, no abnormalities with this visit. In January 2023, he had cardiac cath and was found to have severe RCA stenosis where 1 stent was placed, mild pulmonary hypertension was also noted. Patient is on aspirin and Plavix. He is not having any chest pain at this time, states that his legs are chronically swollen, right worse than left. No cough, fevers, abdominal pain, palpitations, or other symptoms at this time. He states that he has had 1 myocardial infarction in the past. Does not report any recent medication changes. 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 Timing of current episode: episodic Prior episodes: Yes Onset: during exertion Pain location: other (no pain) Associated symptoms: Reports dyspnea; Deny abdominal pain, fever(s), nausea, palpitations or vomiting Risk Factors: Coronary artery disease risk factors: diabetes, hyperlipidemia and hypertension Related Data Home Medications ?Medication ?Instructions ?Recorded ?Confirmed lancets (Accu-Chek Softclix #[id number] ea 07/11/19 05/31/24 Lancets) pregabalin 150 mg capsule 150 mg PO BID 08/06/20 05/31/24 loratadine 10 mg tablet (Claritin) 10 mg PO DAILY 02/08/23 05/31/24 gemfibrozil 600 mg tablet 600 mg PO BID 04/04/23 05/31/24 finasteride 5 mg tablet 5 mg PO DAILY 06/13/23 05/31/24 furosemide 40 mg tablet 40 mg PO QAM PRN fluid retention 06/13/23 05/31/24 potassium chloride 20 mEq 10 meq PO DAILY PRN Edema 06/13/23 05/31/24 tablet,extended release budesonide 160 mcg-glycopyr 9 2 inh inhalation BID 07/26/23 05/31/24 mcg-formot 4.8 mcg/actuation HFA inhaler (Breztri Aerosphere) tamsulosin 0.4 mg capsule 0.8 mg PO QPM 07/26/23 05/31/24 albuterol sulfate 2.5 mg/3 mL 2.5 mg inhalation Q6H PRN 09/22/23 05/31/24 (0.083 %) solution for nebulization Shortness Of Breath pantoprazole 20 mg tablet,delayed 20 mg PO QAM 09/22/23 05/31/24 release sodium chloride 0.65 % nasal spray 2 spray intranasal QID 09/22/23 05/31/24 aerosol metformin 500 mg tablet 500 mg PO BID 04/16/24 05/31/24 albuterol sulfate 90 mcg/actuation 1 inh inhalation QID PRN copd 05/31/24 05/31/24 aerosol inhaler aspirin 81 mg tablet,delayed 81 mg PO DAILY 05/31/24 05/31/24 release carboxymethylcellulose 0.5 2 drp ophthalmic (eye) QID PRN Dry 05/31/24 05/31/24 %-glycerin 0.9 % (PF) eye drops Eyes carboxymethylcellulose 1 drp ophthalmic (eye) QID PRN Dry 05/31/24 05/31/24 sod-hypromell 0.25 %-0.3 % eye Eyes liquid gel drops prednisolone acetate 1 % eye 1 drp ophthalmic (eye) TID 05/31/24 05/31/24 drops,suspension ropinirole 2 mg tablet 2 mg PO TID PRN Restless Leg(S) 05/31/24 05/31/24 Previous Rx's ?Medication ?Instructions ?Recorded lymphedema wrap #1 ea 05/04/21 clopidogrel 75 mg tablet 75 mg PO DAILY #90 tabs 02/17/23 magnesium sulfate 100 mg capsule 400 mg (4 x 100 mg) PO DAILY #28 05/31/24 caps metoprolol succinate 25 mg capsule 25 mg PO DAILY #30 ea 05/31/24 sprinkle, ext. release 24 hr Allergies Allergy/AdvReac Type Severity Reaction Status Date / Time simvastatin Allergy Intermediate unknown Verified 04/16/24 15:39 Review of Systems General: Reports: 10 or more systems reviewed and unremarkable except in HPI and below and Other (present for abnormal EKG) Const: Denies: fever(s), chills or fatigue Eyes: Denies: change in vision ENMT: Denies: throat pain, ear or mastoid pain or nasal discharge Card: Denies: chest pain, palpitations, swelling of feet/ankles or lightheadedness Resp: Reports: dyspnea; Denies: productive cough or wheezing GI: Denies: abdominal pain, nausea, vomiting, diarrhea or constipation : Denies: flank pain, difficulty urinating, dysuria or urinary frequency Musc: Denies: neck pain, back pain or joint pain Skin/Breast: Denies: rash Neuro: Denies: headache(s), numbness in extremities or weakness in extremities PFSH ED PFSH: Medical History 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, managed as type 1 COPD (chronic obstructive pulmonary disease) Hyperlipemia Essential (primary) hypertension GERD (gastroesophageal reflux disease) Surgical History History of colonoscopy with polypectomy 2020 History of coronary artery stent placement Family History Mother Cancer Other Diabetes Denies family history of CAD (coronary artery disease) Stroke Social History Smoking and tobacco/nicotine status: current every day tobacco/nicotine user cigarettes Packs smoked per day: 1 Years cigarettes smoked: 70 [ Other cigarette details: Started at age 7] Alcohol intake: never Substance/Drug Use: never Lives independently: Yes Household members: spouse Marital status: Physical Exam Const: COMMON NORMALS: no acute distress, patient oriented x3 and no limitations GENERAL APPEARANCE: cooperative NUTRITIONAL APPEARANCE: obese ORIENTATION/CONSCIOUSNESS: Yes awake, Yes oriented to person, Yes oriented to place and Yes oriented to time HENMT: COMMON NORMALS: normocephalic, atraumatic and hearing grossly normal bilaterally HEAD & SCALP: normocephalic and atraumatic Eye: COMMON NORMALS: Equal, round and reactive pupils present, EOMs intact bilaterally and conjunctivae normal CONJUNCTIVA: Yes conjunctivae normal PUPIL: Yes Equal, round and reactive pupils present Neck/C-Spine: COMMON NORMALS: full ROM, supple and no JVD Resp: COMMON NORMALS: normal respiratory effort, No retractions, No use of accessory muscles and clear to auscultation bilaterally AUSCULTATION: clear to auscultation bilaterally Cardio: COMMON NORMALS: no JVD, regular rhythm, No clicks present (Cardio), No murmurs present (Cardio) and No rub (Cardio) RATE: bradycardic RHYTHM: regular rhythm OTHER: distant heart sounds GI: COMMON NORMALS: Normal to inspection, nondistended, normoactive bowel sounds present, Soft to palpation and non-tender INSPECTION: Yes central obesity AUSCULTATION: Yes normoactive bowel sounds PALPATION: Yes Soft to palpation RECTAL EXAM: Yes deferred Extremity: COMMON NORMALS: full ROM and capillary refill normal NARRATIVE EXTREMITY EXAM: Bilateral peripheral edema, 2+ pitting up to the shins Neuro: COMMON NORMALS: patient oriented x3, moves all extremities, no focal motor deficits and no sensory deficits noted SENSORIUM/ORIENTATION: Yes oriented to person, Yes oriented to place and Yes oriented to time Skin: COMMON NORMALS: no rashes or lesions noted GENERAL SKIN EXAM: no rashes or lesions noted Course Vital Signs: Vital signs: Vital Signs Temperature 98.1 F 05/31/24 12:57 Pulse Rate 80 05/31/24 15:46 Respiratory Rate 20 H 05/31/24 15:46 Blood Pressure 117/82 05/31/24 15:46 Pulse Oximetry 92 05/31/24 15:46 Oxygen Delivery Me thod Room Air 05/31/24 15:46 MDM - Chest Pain Medical Decision Making Patient arrived by ambulance, was found to have PVCs in bigeminy during preoperative screening for cataract surgery he is supposed to have on Tuesday. History of 1 stent in 2022, has EKGs from that same year showing frequent PVCs though none with bigeminal pattern. He had no complaints here, states intermittently he will get mildly short of breath but this is from working outside. No recent illness or sickness was reported, no recent medication changes. His initial troponin and 2-hour troponin were essentially nondiagnostic, he had no reports of chest pain at any point throughout ED stay or prior to ED. His checks x-ray showing cardiomegaly with no other acute process. Potassium mildly low, no other electrolyte abnormalities. His first EKG showed PVCs, his repeat EKG 2 hours later did show PVCs and bigeminal pattern. I spoke with on-call tab cutting machine operator, Dr. Wagoner, who recommends placing the patient on metoprolol and magnesium and having him closely follow-up with his tab cutting machine operator. Patient had stated multiple times that he wants to go home, he has not had any symptoms and is ultimately frustrated that he is not able to get his cataract surgery. I discussed with him and family in the room strict return precautions, they verbalized understanding. Discussed case with Dr. Thomas. Lab Data 05/31/24 13:10 05/31/24 13:10 Radiology Impressions Chest X-Ray 05/31/24 13:08 Impression: Cardiomegaly. Laboratory Results WBC 7.41 10^3/uL (3.29-11.43) 05/31/24 13:10 RBC 4.39 10^6/uL (3.85-5.65) 05/31/24 13:10 Hgb 14.00 g/dL (11.27-16.99) 05/31/24 13:10 Hct 42.9 % (37-53) 05/31/24 13:10 MCV 97.7 fl (82-101) 05/31/24 13:10 MCH 31.9 pg (27-33) 05/31/24 13:10 MCHC 32.6 g/dL (30-55) 05/31/24 13:10 RDW 14.3 % (12.1-15.1) 05/31/24 13:10 Plt Count 187 10^3/cmm (157-399) 05/31/24 13:10 MPV 11.3 fL (7.4-10.4) H 05/31/24 13:10 Neut % (Auto) 64.2 % 05/31/24 13:10 Lymph % (Auto) 23.5 % 05/31/24 13:10 [place] % (Auto) 6.7 % 05/31/24 13:10 Eos % (Auto) 4.3 % 05/31/24 13:10 Baso % (Auto) 0.9 % 05/31/24 13:10 Neut # (Auto) 4.75 10^3/uL (1.8-7.7) 05/31/24 13:10 Lymph # (Auto) 1.7 10^3/uL (0.8-4.8) 05/31/24 13:10 [place] # (Auto) 0.5 10^3/uL (0.2-0.9) 05/31/24 13:10 Eos # (Auto) 0.3 10^3/uL (0.0-0.8) 05/31/24 13:10 Baso # (Auto) 0.1 10^3/uL (0.0-0.1) 05/31/24 13:10 Nucleated RBC % (auto) 0 % 05/31/24 13:10 Nucleated RBCs # 0.0 /100WBC 05/31/24 13:10 Sodium 140 mmol/L (136-145) 05/31/24 13:10 Potassium 3.3 mmol/L (3.5-5.1) L 05/31/24 13:10 Chloride 95 mmol/L (98-107) L 05/31/24 13:10 Carbon Dioxide 31 mmol/L (22-29) H 05/31/24 13:10 Anion Gap 17.3 (5-19) 05/31/24 13:10 BUN 22 mg/dL (8-23) 05/31/24 13:10 Creatinine 1.2 mg/dL (0.7-1.2) 05/31/24 13:10 GFR Calculation Not Reportable 05/31/24 13:10 Glucose 135 mg/dL (65-115) H 05/31/24 13:10 Calculated Osmolality 295 mOsm/kg (285-295) 05/31/24 13:10 Calcium 9.4 mg/dL (8.5-10.5) 05/31/24 13:10 Magnesium 1.9 mg/dL (1.7-2.3) 05/31/24 13:10 Total Bilirubin 0.5 mg/dL (0.15-1.2) 05/31/24 13:10 AST 21 U/L (0-40) 05/31/24 13:10 ALT 12 U/L (0-41) 05/31/24 13:10 Alkaline Phosphatase 96 U/L (40-130) 05/31/24 13:10 Troponin T Baseline 46 ng/L (0-15) H 05/31/24 13:10 Troponin T 120 Minute 43.61 ng/L (0-15) H 05/31/24 15:17 Delta Troponin T -2.39 ABS# (0-10) L 05/31/24 15:17 NT-Pro-B Natriuret Pep 1189 pg/mL (0-450) H 05/31/24 13:10 Total Protein 7.0 g/dL (6.6-8.7) 05/31/24 13:10 Albumin 3.7 g/dL (3.5-5.2) 05/31/24 13:10 Globulin 3.3 g/dL (1.3-4.6) 05/31/24 13:10 All radiology interpretation(s) finalized by discharge EKG Data EKG 1: I personally reviewed and interpreted this EKG as follows: EKG interpretation date: 05/31/24 EKG interpretation time: 13:20 Prior EKG tracings: available for review Interpretation: Sinus rhythm with PVCs. Rate 92. No STEMI. PVCs also noted on EKG from 12/22/2022. Reviewed with physician. EKG 2: I personally reviewed and interpreted this EKG as follows: EKG interpretation date: 05/31/24 EKG interpretation time: 14:50 Prior EKG tracings: available for review Interpretation: Sinus rhythm with PVCs in bigeminal rhythm. Rate 84. No STEMI. Reviewed with physician. Discharge Plan Discharge Patient Disposition: Home Clinical Impression: Frequent PVCs, SOB (shortness of breath) Condition: Stable Prescriptions: New metoprolol succinate 25 mg capsule,sprinkle,ER 24hr 25 mg PO DAILY Qty: 30 0RF magnesium sulfate 100 mg capsule 400 mg PO DAILY Qty: 28 0RF No Action pregabalin 150 mg capsule 150 mg PO BID gemfibrozil 600 mg tablet 600 mg PO BID (DME) lancets [Accu-Chek Softclix Lancets] Misc See Rx Instructions .ROUTE .MEDSUPPLY Qty: 50 Rx Instructions: As directed (DME) lymphedema wrap See Rx Instructions .Route .MEDSUPPLY Qty: 1 0RF Rx Instructions: Wrap from foot to above knee due to swelling PRN tamsulosin 0.4 mg capsule 0.8 mg PO QPM loratadine [Claritin] 10 mg tablet 10 mg PO DAILY furosemide 40 mg tablet 40 mg PO QAM PRN (Reason: fluid retention) finasteride 5 mg tablet 5 mg PO DAILY potassium chloride 20 mEq tablet extended release 10 meq PO DAILY PRN (Reason: Edema) Breztri Aerosphere 160-9-4.8 mcg/actuation HFA aerosol inhaler 2 inh inhalation BID metformin 500 mg tablet 500 mg PO BID albuterol sulfate 2.5 mg /3 mL (0.083 %) Solution For Nebulization 2.5 mg INHALATION Q6H PRN (Reason: Shortness Of Breath) pantoprazole 20 mg Tablet,Delayed Release (Dr/Ec) 20 mg PO QAM sodium chloride 0.65 % Aerosol,[place] 2 spray INTRANASAL QID aspirin [Aspir-81] 81 mg Tablet,Delayed Release (Dr/Ec) 81 mg PO DAILY prednisolone acetate 1 % Drops,Suspension 1 drp OPHTHALMIC (EYE) TID ropinirole 2 mg Tablet 2 mg PO TID PRN (Reason: Restless Leg(S)) albuterol sulfate 90 mcg/actuation Hfa Aerosol Inhaler 1 inh INHALATION QID PRN (Reason: copd) carboxymethylcell-hypromellose 0.25-0.3 % Drops, Liquid Gel 1 drp OPHTHALMIC (EYE) QID PRN (Reason: Dry Eyes) carboxymethylcell-glycerin(PF) 0.5-0.9 % Drops 2 drp OPHTHALMIC (EYE) QID PRN (Reason: Dry Eyes) clopidogrel 75 mg Tablet 75 mg PO DAILY Qty: 90 3RF Discharge Orders: Discharge ED (Routine); Ordered 05/31/24 Ordered By: Duncan Sagastume Referrals: Carmella Mtz MD [Primary Care Provider] - Patient Instructions: Premature Ventricular Contractions (ED) Activity Restrictions/Additional Instructions: Take metoprolol and magnesium as prescribed. Please call Dr. Handley's office tomorrow to schedule an appointment with nurse practitioner while he is out of town. Please note that if you develop any chest pain, worsening shortness of breath, or other concerns please return to the emergency department immediately as we discussed. Continue taking other medications at home. Print Language: Armenian Coding Level of Care Code ED Lockstitch Back Maker for Jose Mckeon
[2024-05-31 13:18] LABS: Basophils # 0.1 10^3/uL (0.0-0.1); Basophils % 0.9 %; Eosinophils # 0.3 10^3/uL (0.0-0.8); Eosinophils % 4.3 %; Hematocrit 42.9 % (37-53); Lymphocytes # 1.7 10^3/uL (0.8-4.8); Lymphocytes % 23.5 %; Mean Corpuscular HGB Conc 32.6 g/dL (30-55); Mean Corpuscular Hemoglobin 31.9 pg (27-33); Mean Corpuscular Volume 97.7 fl (82-101); Mean Platelet Volume 11.3 fL (7.4-10.4); Monocytes # 0.5 10^3/uL (0.2-0.9); Monocytes % 6.7 %; Neutrophils # 4.75 10^3/uL (1.8-7.7); Neutrophils % 64.2 %; Nucleated Red Blood Cells % 0 %; Platelet Count 187 10^3/cmm (157-399); Red Blood Count 4.39 10^6/uL (3.85-5.65); Red Cell Distribution Width 14.3 % (12.1-15.1); White Blood Count 7.41 10^3/uL (3.29-11.43)
[2024-05-31 13:38] LABS: Troponin(5th) Baseline 46 ng/L (0-15)
[2024-05-31 14:02] LABS: Alanine Aminotransferase 12 U/L (0-41); Albumin Level 3.7 g/dL (3.5-5.2); Alkaline Phosphatase 96 U/L (40-130); Anion Gap 17.3 (5-19); Aspartate Amino Transferase 21 U/L (0-40); Blood Urea Nitrogen 22 mg/dL (8-23); Calcium 9.4 mg/dL (8.5-10.5); Carbon Dioxide 31 mmol/L (22-29); Chloride 95 mmol/L (98-107); Creatinine Clr Calc Pharmacy 65.3181; Globulin 3.3 g/dL (1.3-4.6); Glucose 135 mg/dL (65-115); Magnesium 1.9 mg/dL (1.7-2.3); NT Pro B Type Natriuretic Pept 1189 pg/mL (0-450); Osmolality Calculated 295 mOsm/kg (285-295); Potassium 3.3 mmol/L (3.5-5.1); Sodium 140 mmol/L (136-145); Total Bilirubin 0.5 mg/dL (0.15-1.2)
--- NOTE | 2024-05-31 14:49 | ECG_ITS ---
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 Measurements Intervals [place] Rate: 84 P: 63 [place]: 172 QRS: 49 QRSD: 102 T: 60 QT: 362 QTc: 428 Interpretive Statements SINUS RHYTHM WITH FREQUENT VENTRICULAR PREMATURE COMPLEXES IN A BIGEMINAL PATTERN NONSPECIFIC T-WAVE ABNORMALITY Compared to ECG 05/31/2024 13:10:58 T-wave abnormality now present Intraventricular conduction delay no longer present Electronically Signed On 05-31-2024 22:14:35 ASSOCIATE PROFESSOR OF PSYCHOLOGY by Sathish Ames M.D. [email or web address]
[2024-05-31 15:51] LABS: Troponin 5 2HR 43.61 ng/L (0-15)
[2024-05-31 15:53] LABS: Troponin 5 2HR Delta -2.39 ABS# (0-10)
== END 2024-05-31 16:45 | disposition home or self-care (01) ==
PROVIDERS: Emergency Provider Physician Assistant; PCP Family Medicine
DX: I49.3 Ventricular premature depolarization (principal); R06.02 Shortness of breath; Z79.84 Long term (current) use of oral hypoglycemic drugs; Z79.82 Long term (current) use of aspirin; F17.210 Nicotine dependence, cigarettes, uncomplicated; J44.9 Chronic obstructive pulmonary disease, unspecified; I10 Essential (primary) hypertension; E13.9 Other specified diabetes mellitus without complications; E78.5 Hyperlipidemia, unspecified
CPT/HCPCS: 36415; 71045; 80053; 83735; 83880; 84484; 85025; 93005; 99285

== ENCOUNTER → 2024-07-31 14:21 | Outpatient (BNVA) | payer OTHER, SELFPAY | PROVIDERS: PCP Family Medicine; Visit Provider Internal Medicine Cardiovascular Disease | DX: R00.1 Bradycardia, unspecified (principal); R06.02 Shortness of breath; I10 Essential (primary) hypertension; E78.1 Pure hyperglyceridemia; I25.118 Atherosclerotic heart disease of native coronary artery with other forms of angina pectoris; I49.9 Cardiac arrhythmia, unspecified; J43.8 Other emphysema | CPT/HCPCS: 36415; 80048; 83880; 99214 ==

== ENCOUNTER → 2024-08-15 09:00 | Outpatient (BNVA) | payer OTHER, SELFPAY | PROVIDERS: PCP Family Medicine; Visit Provider Internal Medicine Cardiovascular Disease | DX: I10 Essential (primary) hypertension (principal); E78.1 Pure hyperglyceridemia; I25.118 Atherosclerotic heart disease of native coronary artery with other forms of angina pectoris; R07.89 Other chest pain | CPT/HCPCS: 80048; 83880 ==

== ENCOUNTER 2024-10-12 07:58 | Outpatient (CLI) | payer OTHER, SELFPAY ==
--- NOTE | 2024-10-12 | ECG_ITS ---
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 Interpretive Statements Lung unchanged pre/post procedure; Intraprocedure shortess of breath; Symptoms resoled by discharge PROCEDURE: At the baseline, the EKG revealed normal sinus rhythm with frequent PVCs. Poor R wave progression. Some nonspecific T wave changes.. The baseline heart was 84 bpm with a blood pressue of 107/73 mm of Hg Lexiscan was infused over a period of 20 seconds. A total of 0.4 milligrams of Lexiscan was infused. The stress phase was continued for a total of 5 minutes. Heart rate at the end of the stress phase was 91 bpm with a blood pressure 98/76 mm of Hg. The EKG at the peak infusion revealed no significant changes. Sestamibi was injected 20 seconds after the Lexiscan infusion. Heart rate at the end of the recovery phase was 91 bpm with a blood pressure of 100/56 mm of Hg. CONCLUSION: 1. No significant EKG changes with the LexiScan infusion 2. No LexiScan induced chest pain or cardiac arrhythmia 3. Normal blood pressure and heart rate response 4. Sestamibi/sestamibi perfusion scan pending; see separate report. Electronically Signed On 10-14-2024 21:24:05 CDT by Steven Handley M.D. [email or web address]
[2024-10-12 08:18] VITALS: BMI 39.4
--- NOTE | 2024-10-12 08:19 | NMCV_ITS ---
NM adrianna perf SPECT r/s* [id number] Jaquan Alba Age: 79 Gender: M : 1945 Exam Date: 10/12/2024 09:09 Ordering Phys: Steven Handley MD ([email or web address]) Technologist: PAYTON Toth Exam Location: [facility] Indications: cp STRESS TEST [facility] IMAGE PROTOCOL Rest/Stress 1 Lexiscan Day Radiopharmaceutical Dose (mCi) Administration Site Administered by Rest: Tc-99m 10.5 IV Olive Keenan, ARTS MANAGER Sestamibi Stress:Tc-99m 33 IV Olive Ricegle, ARTS MANAGER Sestamibi Rest: 12-Oct-2024 60 Discovery 630 Stress: 12-Oct-2024 30 Discovery 630 0.4mg Lexiscan. Supine position only as patient was unable to lay prone. SPECT RESULTS Technical Quality: Good Raw Data Analysis: Normal Image Corrections: No attenuation or motion correction applied Summed Stress Score: 16 Summed Rest Score: 15 Summed Difference Score: 3 PERFUSION FINDINGS Moderate to large area of moderate to severely decreased tracer uptake involving the inferior, inferolateral and apical segments with slight reversibility in the LV apex and apical lateral segments FUNCTIONAL RESULTS (calculated via Gated SPECT) Stress Image LV EF (%): 41 Stress EDV (mL):148 TID: 1.11 Stress ESV (mL):88 FUNCTIONAL FINDINGS: Segmental wall motion analysis revealing diffuse hypokinesia of the left ventricle IMPRESSIONS 1. Myocardial perfusion imaging revealing moderately large area of moderate to severely decreased tracer uptake involving the inferior, inferolateral and apical segments with a very small area reversibility around the apex suggesting extensive myocardial scarring involving the distribution of the right coronary artery and the left circumflex artery with a very small area of idalia-infarct ischemia. 2. Diminished LV ejection fraction 41% 3. LV wall motion analysis revealing diffuse hypokinesia of the left ventricle 4. Mildly dilated LV cavity with an end-systolic volume of 88 mL Compared to the study from 9 01/13/2023 the ischemic burden is low(summed difference score of 3 versus 6) Dr Steven Handley MD FAC (Electronically Signed) Final Date: 12 October 2024 15:28 S
[2024-10-12] MEDS: regadenoson 0.4 Mg/5 ml Syringe IVP (09:40)
[2024-10-12 09:52] VITALS: BP 100/56; PULSE 91
== END 2024-10-12 07:59 | disposition home or self-care (01) ==
LOC: CDL 08:01
PROVIDERS: PCP Family Medicine; Visit Provider Internal Medicine Cardiovascular Disease
DX: R07.9 Chest pain, unspecified (principal); I51.7 Cardiomegaly
CPT/HCPCS: 36415; 78452; 93017; 96374; A9500; J2785

== ENCOUNTER → 2024-11-06 15:02 | Outpatient (BNVA) | payer OTHER, SELFPAY | PROVIDERS: PCP Family Medicine; Visit Provider Internal Medicine Cardiovascular Disease | DX: I49.9 Cardiac arrhythmia, unspecified (principal); I25.10 Atherosclerotic heart disease of native coronary artery without angina pectoris; I10 Essential (primary) hypertension; E78.5 Hyperlipidemia, unspecified; E13.9 Other specified diabetes mellitus without complications; Z79.84 Long term (current) use of oral hypoglycemic drugs; Z95.5 Presence of coronary angioplasty implant and graft; Z79.02 Long term (current) use of antithrombotics/antiplatelets; F17.210 Nicotine dependence, cigarettes, uncomplicated | CPT/HCPCS: 99214 ==